=== PATIENT | female | born 1960 | race Caucasian/White ===

== ENCOUNTER 2024-02-24 14:05 | Outpatient (CLI) | payer OTHER, SELFPAY | END 2024-02-24 14:06 | disposition home or self-care (01) | PROVIDERS: PCP Nurse Practitioner Family; Visit Provider Nurse Practitioner Family | DX: I10 Essential (primary) hypertension (principal); E78.5 Hyperlipidemia, unspecified; I48.91 Unspecified atrial fibrillation | CPT/HCPCS: 80053; 84484 ==

== ENCOUNTER 2024-03-03 09:28 | Outpatient (CLI) | payer OTHER, SELFPAY | END 2024-03-03 09:29 | disposition home or self-care (01) | LOC: KYNREF 09:30 | PROVIDERS: PCP Nurse Practitioner Family; Visit Provider Nurse Practitioner Family | DX: E78.5 Hyperlipidemia, unspecified (principal); R60.0 Localized edema | CPT/HCPCS: 80061; 83880 ==

== ENCOUNTER 2024-03-13 09:16 | Outpatient (CLI) | payer OTHER, SELFPAY | END 2024-03-13 09:17 | disposition home or self-care (01) | LOC: RAD 09:17 | PROVIDERS: PCP Nurse Practitioner Family; Visit Provider Nurse Practitioner Family | DX: I48.91 Unspecified atrial fibrillation (principal); I51.7 Cardiomegaly | CPT/HCPCS: 93306 ==

== ENCOUNTER 2024-03-20 10:59 | Outpatient (CLI) | payer OTHER, SELFPAY | END 2024-03-20 11:00 | disposition home or self-care (01) | LOC: KYNREF 10:59 | PROVIDERS: PCP Nurse Practitioner Family; Visit Provider Nurse Practitioner Family | DX: I10 Essential (primary) hypertension (principal); E78.5 Hyperlipidemia, unspecified; I48.91 Unspecified atrial fibrillation; Z79.899 Other long term (current) drug therapy | CPT/HCPCS: 80048 ==

== ENCOUNTER 2024-04-20 14:37 | Outpatient (CLI) | payer OTHER, SELFPAY ==
--- OUTSIDE RECORDS SUMMARY | 2024-04-20 14:51 | XMS_ITS | Clinical Summary ---
Author Organization [employer] [facility] Address [place], [place] [address] Care Team Providers Care Counter Tacker Name Role Phone Roshan Higginbotham NP Primary Care Provider [phone] Allergies Active Allergy Reactions Criticality Noted Date Comments Pollen Extracts Runny Nose 02/22/2024 Medications Medication Sig Dispensed Refills Start Date End Date Status clonazePAM (KLONOPIN WAFER) 0.25 mg disintegrating tablet Take 0.25 mg by mouth once daily. In am Active clonazePAM (KLONOPIN) 0.5 mg tablet Take 0.5 mg by mouth two times daily. Active FLUoxetine (PROZAC) 10 mg capsule Take 10 mg by mouth once daily. Active FLUoxetine (PROZAC) 20 mg capsule Take 20 mg by mouth once daily. Active gabapentin (NEURONTIN) 100 mg capsule Take 100 mg by mouth three times daily. 07/15/2023 Active gabapentin (NEURONTIN) 600 mg tablet Take 600 mg by mouth three times daily. Active losartan (COZAAR) 100 mg tablet Take 100 mg by mouth once daily. Active QUEtiapine (SEROQUEL) 25 mg tablet Take 25 mg by mouth two times daily. 09/24/2023 Active QUEtiapine (SEROQUEL) 300 mg tablet Take 300 mg by mouth at bedtime. Active SUMAtriptan (IMITREX) 100 mg tablet Take 100 mg by mouth one time if needed for Migraine. May repeat dose once in 2 hours if migraine is unresolved. Do not exceed 200 mg in 24 hours. 11/12/2022 Active ondansetron (ZOFRAN ODT) 4 mg disintegrating tabletIndications:Na usea, vomiting and diarrhea Place 1 Tablet (4 mg) on the tongue every 8 hours if needed for Nausea/Vomitin g. 20 Tablet 02/22/2024 Active metoprolol succinate (Toprol XL) 100 mg Sustained-Release tabletIndications:Pe rsistent atrial fibrillation (HC) Take 1 Tablet (100 mg) by mouth once daily. 30 Tablet 11 03/26/2024 Active dilTIAZem CD (CARDIZEM CD) 120 mg extended release 24 hr capsuleIndications:A trial fibrillation with rapid ventricular response (HC) Take 1 Capsule (120 mg) by mouth once daily before a meal. 30 Capsule 03/26/2024 Active digoxin (LANOXIN) 250 mcg (0.25 mg) tabletIndications:Pe rsistent atrial fibrillation (HC) Take 1 Tablet (250 mcg) by mouth once daily. 03/26/2024 Active apixaban (Eliquis) 5 mg tabletIndications:Pe rsistent atrial fibrillation (HC) Take 1 Tablet (5 mg) by mouth two times daily. 60 Tablet 3 03/26/2024 Active amLODIPine (NORVASC) 5 mg tablet Take 5 mg by mouth once daily. 11/06/2023 4 Discontinue d(*Medicati on adjustment) propranolol ER (INDERAL LA) 80 mg Cs24 Sustained-Release capsule Take 80 mg by mouth once daily. 01/31/2024 4 Discontinue d(*Medicati on adjustment) dilTIAZem CD (CARDIZEM CD) 120 mg extended release 24 hr capsuleIndications:A trial fibrillation with rapid ventricular response (HC) Take 1 Capsule (120 mg) by mouth once daily before a meal. 30 Capsule 02/22/2024 4 Discontinue d(Reorder (E-cancel not sent)) Encounters Date Type Department Care Team Description 04/20/2024 Telephone [facility] [address] [place] [address] Aydin Washington MD Medication Management 04/16/2024 Telephone [facility] [address] [place] [phone] Aydin Washington MD Questions 03/26/2024 10:30 AM CDT Office Visit [facility] & [address] [address] Aydin Washington MD 03/13/2024 9:00 AM CDT Ancillary Procedure [facility] & [facility] [address] [place] [address] 03/13/2024 Orders Only [facility] [address] [place] [address] McknightCatrachitaie 1 scan: (1-Ord) Final 03/04/2024 Telephone [facility] [address] [place] [phone] Nic Romero MD Atrial Fibrillation 02/27/2024 Travel 02/22/2024 11:10 AM CDT - 02/22/2024 2:49 PM CDT Emergency [facility] [address] [place] [address] Irving Meehan MD Atrial fibrillation with rapid ventricular response (HC) (Primary Dx); Nausea, vomiting and diarrhea Discharge Disposition: Home Self Care 02/22/2024 Travel from Last 3 Months Social History Tobacco Use Types Packs/Day Years Used Date Smoking Tobacco: Never Assessed Social Connections Answer Date Recorded Frequency of Communication with Friends and Fami ly Not on file 03/26/2024 Sex and Gender Information Value Date Recorded Sex Assigned at Not on file Gender Identity Not on file Sexual Orientation Not on file Last Filed Vital Signs Vital Sign Reading Time Taken Comments Blood Pressure 123/90 02/22/2024 2:04 PM CDT Pulse 128 02/22/2024 2:04 PM CDT Temperature 36.6 ??C (97.8 ??F) 02/22/2024 1 1:21 AM CDT Respiratory Rate 18 02/22/2024 11:2 1 AM CDT Oxygen Saturation 93% 02/22/2024 2:04 PM CDT Inhaled Oxygen Concentration - - Weight 81.1 kg (178 lb 12.8 oz) 024 11:21 AM CDT Height 165.1 cm (5' 5) 02/22/2024 11:2 1 AM CDT Body Mass Index 29.75 02/22/2024 11:21 AM CDT Plan of Treatment Health Maintenance Due Date Last Done Comments Tdap 1971 Depression screening for age 12+ 1972 HIV for age 15-65 1975 BMI (ht and wt on same day) for age 18+ 1978 Hepatitis C screening for ag e 18-79 1978 Tetanus booster 1980 Pap test for age 21-65 1981 Colonoscopy through age 75 2005 Lipids for age 45-75 2005 Mammogram for age 45-75 2005 Zoster (shingles) series for age 50+ (1 of 2) 2010 COVID-19 vaccine series (3 - 2022- season) 2023 01/13/2021, 12/20/2020 Influenza for age 50-64 06/07/2024 Pneumococcal series for age 6-64 Aged Out No longer eligible b ased on patient's age to complete this topic Procedures Procedure Name Priority Date/Time Associated Diagnosis Comments EXTENDED HOLTER Routine 03/16/2024 Unspecified atrial fibrillation (HC) ECHO TTE COMPLETE WO CONTRAST Routine 03/13/2024 9:57 AM CDT Unspecified atrial fibrillation (HC) TROPONIN T (HS) ONE TIME Timed 02/22/2024 1:27 PM CDT PROTIME-INR JABIER 02/22/2024 11:26 AM CDT RED CELL MORPHOLOGY JABIER 02/22/2024 1 1:25 AM CDT PLATELET ESTIMATE JABIER 02/22/2024 11: 25 AM CDT MANUAL DIFFERENTIAL JABIER 02/22/2024 1 1:25 AM CDT MAGNESIUM JABIER 02/22/2024 11:25 AM CDT TROPONIN T (HS) ACUTE W/2HR REFLEX STAT 02/22/2024 11:25 AM CDT TSH JABIER 02/22/2024 11:25 AM CDT CBC WITH AUTO DIFFERENTIAL JABIER 02/22/2024 11:25 AM CDT LIPASE JABIER 02/22/2024 11:25 AM CDT COMP METABOLIC PANEL JABIER 02/22/2024 11:25 AM CDT CBC WITH AUTO DIFFERENTIAL JABIER 02/22/2024 11:25 AM CDT EKG 12 LEAD STAT 02/22/2024 11:11 AM CDT CRITICAL CARE PROVIDED Routine 02/22/2024 11:07 AM CDT from Last 3 Months Results * EXTENDED HOLTER (03/16/2024) Roshan Higginbotham NP CARDIAC SERVICES O RD * ECHO TTE COMPLETE WO CONTRAST (03/13/2024 9:57 AM CDT) AORTIC VALVE MEAN PG 6 mmHg PEAK TR VELOCITY 2.2 m/s LVEDD 5.2 cm EJECTION FRACTION 35 - 40% Anatomical Region Laterality Modality Ultrasound 03/13/2024 9:26 AM CDT Narrative 03/13/2024 10:26 AM CDT ECHOCARDIOGRAM AIRAM LOPEZAnmol ? Accession#: ?? [id number] : ?1960 63 years Study Date: ?? 03/13/2024 9:26:06 AM Gender: F ?BP: ? 128/75 mmHg Height: 165.00 cm ?BSA: ?1.88 m? ? ? Weight: 81.00 kg ? Tech: ? MBF ? Referring MD: ROSHAN HIGGINBOTHAM Site: ? [facility] Reading Location: Mobile OP Patient Location: Outpatient. Procedure: 2D, Color Doppler and Spectral Doppler. Indication for study: Afib Cardiac Rhythm: Atrial fibrillation.Study quality: Fair. Final Impressions: 1. Normal LV size, normal wall thickness, moderately reduced global systolic function with an estimated EF of 35 - 40%. 2. There's global hypokinesis but worse involving the apical segments. 3. Right ventricular cavity size is mildly enlarged, global systolic RV function is borderline reduced. 4. Severely enlarged left atrium. Chamber Sizes and Function Normal left ventricular size, normal wall thickness, moderately reduced global systolic function with an estimated EF of 35 - 40%. Left atrial size is severely enlarged. Right ventricular cavity size is mildly enlarged, global systolic RV function is borderline reduced. The right atrium is mildly enlarged. Right atrial volume index is 32 ml/m? ? ?. Right atrial area is 18 cm? ? ?. The pulmonary artery is of normal size and origin. The sinus of Valsalva is normal sized. The ascending aorta is normal sized. Valves, RV Pressures and Diastolic Function The aortic valve is trileaflet, no stenosis and no regurgitation. The mitral valve is normal in structure, trace mitral regurgitation. Indeterminate pattern of LV diastolic filling. The tricuspid valve is normal in structure. Tricuspid regurgitation is trace regurgitation. The tricuspid regurgitant velocity is 2.2 m/s, the estimated right ventricular systolic pressure is 19 mmHg plus right atrial pressure. The pulmonic valve is normal. Trace pulmonary regurgitation. Masses, Effusion, Shunts There is no pericardial effusion. The inferior vena cava is normal sized, respiratory size variation greater than 50%. No left to right shunting was detected by limited color flow Doppler interrogation of the interatrial septum. MEASUREMENTS AND CALCULATIONS 2-D Measurements and LV Function: LVID (d) 5.2 cm LV FS% (2D) ?? 17 % LVID (s) 4.4 cm LVOT diameter 2.1 cm IVS (d) ??1.2 cm HR ?85 bpm LVPW (d) 1.2 cm LA Vol index ??49 ml/m2 Ao Sinus 3.1 cm RA Vol index ??32 ml/m2 Asc Ao ?? 3.5 cm RA area ? 18 cm?RV Max 4C (d) 4.2 cm Aortic Valve: Vmax ? 1.5 m/s ??ESTEFANIA (V) ?? 2.72 cm? ? ? VTI ?0.30 m ?? ESTEFANIA (I) ?? 2.48 cm? ? ? LVOT V max 1.2 m/s ??Max PG ?9 mmHg LVOT VTI ?? 0.20 m ?? Mean PG ?? 6 mmHg SV ? 73 ml ?Dim Index 0.69 SV index ?? 39 ml/m? ? ? CO ?6.2 l/min ?CI ?3.3 l/min/m? ? ? Tricuspid Valve and estimated PA pressures: TR Vmax 2.2 m/s TAPSE 1.8 cm TR maxG 19 mmHg . This study was interpreted by an [facility] accredited facility. CC: [facility] ([facility]) [facility]. ??Final ?? Procedure Note Jose Antonio Noriega MD - 03/13/2024 ECHOCARDIOGRAM AIRAM YOUNG : 1960 63 years Study Date: 03/13/2024 9:26:06 AM Gender: F BP: 128/75 mmHg Height: 165.00 cm BSA: 1.88 m? ? ? Weight: 81.00 kg Tech: PRISCILLA Referring MD: ROSHAN HIGGINBOTHAM Site: [facility] Reading Location: Mobile OP Patient Location: Outpatient. Procedure: 2D, Color Doppler and Spectral Doppler. Indication for study: Afib Cardiac Rhythm: Atrial fibrillation.Study quality: Fair. Final Impressions: 1. Normal LV size, normal wall thickness, moderately reduced globalsystolic function with an estimated EF of 35 - 40%. 2. There's global hypokinesis but worse involving the apical segments. 3. Right ventricular cavity size is mildly enlarged, global systolic RVfunction is borderline reduced. 4. Severely enlarged left atrium. Chamber Sizes and Function Normal left ventricular size, normal wall thickness, moderately reducedglobal systolic function with an estimated EF of 35 - 40%. Left atrialsize is severely enlarged. Right ventricular cavity size is mildlyenlarged, global systolic RV function is borderline reduced. The rightatrium is mildly enlarged. Right atrial volume index is 32 ml/m? ? ?. Rightatrial area is 18 cm? ? ?. The pulmonary artery is of normal size and origin.The sinus of Valsalva is normal sized. The ascending aorta is normalsized. Valves, RV Pressures and Diastolic Function The aortic valve is trileaflet, no stenosis and no regurgitation. Themitral valve is normal in structure, trace mitral regurgitation.Indeterminate pattern of LV diastolic filling. The tricuspid valve isnormal in structure. Tricuspid regurgitation is trace regurgitation. Thetricuspid regurgitant velocity is 2.2 m/s, the estimated right ventricularsystolic pressure is 19 mmHg plus right atrial pressure. The pulmonicvalve is normal. Trace pulmonary regurgitation. Masses, Effusion, Shunts There is no pericardial effusion. The inferior vena cava is normal sized,respiratory size variation greater than 50%. No left to right shunting wasdetected by limited color flow Doppler interrogation of the interatrialseptum. MEASUREMENTS AND CALCULATIONS 2-D Measurements and LV Function: LVID (d) 5.2 cm LV FS% (2D) 17 % LVID (s) 4.4 cm LVOT diameter 2.1 cm IVS (d) 1.2 cm HR 85 bpm LVPW (d) 1.2 cm LA Vol index 49 ml/m2 Ao Sinus 3.1 cm RA Vol index 32 ml/m2 Asc Ao 3.5 cm RA area 18 cm? ? ? RV Max 4C (d) 4.2 cm Aortic Valve: Vmax 1.5 m/s ESTEFANIA (V) 2.72 cm? ? ? VTI 0.30 m ESTEFANIA (I) 2.48 cm? ? ? LVOT V max 1.2 m/s Max PG 9 mmHg LVOT VTI 0.20 m Mean PG 6 mmHg SV 73 ml Dim Index 0.69 SV index 39 ml/m? ? ? CO 6.2 l/min CI 3.3 l/min/m? ? ? Tricuspid Valve and estimated PA pressures: TR Vmax 2.2 m/s TAPSE 1.8 cm TR maxG 19 mmHg . This study was interpreted by an [facility] accredited facility. CC: [facility] ([facility]) [facility]. Final Roshan Higginbotham SYSTEM ARCHITECT ECHO ORD * (ABNORMAL) TROPONIN T (HS) ONE TIME (02/22/2024 1:27 PM CDT) TROPONIN T HS 13(H) 6-10 ng/L ng/L 02/22/2024 1:52 PM CDT [facility] Blood BLOOD SPECIMEN / Unknown Venipuncture / Unknown 02/22/2024 1:27 PM CDT 02/22/2024 1:28 PM CDT Irving Meehan MD CHEMISTRY [facility] [address] [address] * (ABNORMAL) PROTIME-INR (02/22/2024 11:26 AM CDT) INR 1.7(H) <1.3 02/22/2024 11:38 AM CDT [facility] PROTIME 19.1(H) 10.3 - 12.3 sec 02/22/2024 11:38 AM T [facility] Blood BLOOD SPECIMEN / Unknown Venipuncture / Unknown 02/22/2024 11:26 AM CDT 02/22/2024 11:29 AM CDT Narrative [facility] - 02/22/2024 11:38 AM CDT ?Therapeutic Range 2.0-3.0 for most anticoagulated patients 2.5-3.5 or 4.0 for high risk patients The INR is only used for patients on stable oral anticoagulant therapy. It makes no significant contribution to the diagnosis or treatment of patients whose Protime is prolonged for other reasons. INR results are increased when heparin levels exceed 1.0 U/mL, which corresponds to an aPTT >125 seconds if the patient is on UFH. Irving Meehan MD HEMATOLOGY [facility] [address] [phone] * (ABNORMAL) TROPONIN T (HS) ACUTE W/2HR REFLEX (02/22/2024 11:25 AM CDT) [facility] TROPONIN T HS 14(H) 6-10 ng/L ng/L 02/22/2024 12:16 PM T [facility] Blood BLOOD SPECIMEN / Unknown Venipuncture / Unknown 02/22/2024 11:25 AM CDT 02/22/2024 11:29 AM CDT [facility] 02/22/2024 12:16 PM CDT hs-cTnT (Elecsys Troponin T Gen 5) concentration (s) above the sex-specific 99th percentile (16 ng/L or greater for males or 11 ng/L or greater for females) are indicative of myocardial injury. If initial hs-cTnT <=100 ng/L at presentation, a 0h/2h ABSOLUTE (ng/L) delta change (rising or falling) of >=10 ng/L suggests a significant change, whereas a 0h/2h delta change <=3 ng/L suggests no significant change. If initial hs-cTnT >100 ng/L at presentation, a 0h/2h/ RELATIVE (percent, %) delta change of 20% is suggested to distinguish patients with acute vs. chronic myocardial injury. There are multiple etiologies that can cause hs-cTnT increases above the 99th percentile (myocardial injury) other than acute myocardial infarction. Clinical context and careful clinical evaluation are critical for diagnosis and risk-stratification. The diagnosis of acute myocardial infarction requires a rising and/or falling pattern in hs-cTnT concentrations with at least one value above the sex-specific 99th percentile PLUS at least one of the following clinical criteria: ischemic symptoms, new or presumed new significant ST-T wave changes or new LBBB, development of pathological Q waves, imaging evidence of new loss of viable myocardium or new regional wall motion abnormality, or identification of intracoronary atherothrombosis or an acute angiographic culprit on coronary angiography. In appropriate low-risk patients with a non-ischemic electrocardiogram without active chest pain with a symptom onset >3-hours without recurrence, a single initial hs-cTnT<6 ng/L identifies patient with a very low risk in emergency department patient population. Irving Meehan MD CHEMISTRY [facility] [address] [address] * (ABNORMAL) CBC WITH AUTO DIFFERENTIAL (02/22/2024 11:25 AM T) WHITE BLOOD COUNT 7.0 4.5 - 11.0 thou/cu mm 02/22/2024 11:57 AM [facility] RED BLOOD COUNT 4.01 4.00 - 5.20 mil/cu mm 02/22/2024 11:57 AM [facility] HEMOGLOBIN 14.1 12.0 - 16.0 g/dL 02/22/2024 11:57 AM [facility] HEMATOCRIT 42.3 33.0 - 51.0 % 02/22/2024 11:57 AM [facility] MCV 106(H) 80 - 100 fL 02/22/2024 11:57 AM [facility] MCH 35.2(H) 26.0 - 34.0 pg 02/22/2024 11:57 AM [facility] MCHC 33.3 32.0 - 36.0 g/dL 02/22/2024 11:57 AM [facility] RDW 14.3 11.5 - 15.5 % 02/22/2024 11:57 AM [facility] PLATELET COUNT 198 140 - 440 thou/cu mm 02/22/2024 11:57 AM [facility] MPV 10.7 6.5 - 11.0 fL 02/22/2024 11:57 AM [facility] Blood BLOOD SPECIMEN / Unknown Venipuncture / Unknown 02/22/2024 11:25 AM CDT 02/22/2024 11:29 AM CDT Irving Meehan MD HEMATOLOGY Performing Organization Address [facility] de Phone Number [facility] [address] [phone] * (ABNORMAL) RED CELL MORPHOLOGY (02/22/2024 11:25 AM CDT) POLYCHROMASIA Slight 02/22/2024 11:57 AM CDT [facility] RBC COMMENT Present(A) RBC morphology appears normal, RBC morphology within normal limits for newborns. 02/22/2024 11:57 AM CDT [facility] Blood BLOOD SPECIMEN / Unknown Venipuncture / Unknown 02/22/2024 11:25 AM CDT 02/22/2024 11:29 AM CDT Irving Meehan MD HEMATOLOGY Performing Organization Address [facility] de Phone Number [facility] [address] [phone] * PLATELET ESTIMATE (02/22/2024 11:25 AM CDT) PLATELET ESTIMATE Adequate Adequate, No estimate 02/22/2024 11:57 AM T [facility] Blood BLOOD SPECIMEN / Unknown Venipuncture / Unknown 02/22/2024 11:25 AM CDT 02/22/2024 11:29 AM CDT Irving Meehan MD HEMATOLOGY Performing Organization Address [facility] de Phone Number [facility] [address] [phone] * MANUAL DIFFERENTIAL (02/22/2024 11:25 AM CDT) % NEUTROPHILS 75.0 % 02/22/2024 11:57 AM CDT [facility] % LYMPHOCYTES 18.0 % 02/22/2024 11:57 AM CDT [facility] % MONOCYTES 7.0 % 02/22/2024 11:57 AM CDT [facility] % EOSINOPHILS 0.0 % 02/22/2024 11:57 AM T [facility] % BASOPHILS 0.0 % 02/22/2024 11:57 AM T [facility] NEUTROPHILS ABSOLUTE 5.3 1.7 - 7.0 thou/cu mm 02/22/2024 11:57 AM T [facility] LYMPHOCYTES ABSOLUTE 1.3 0.9 - 2.9 thou/cu mm 02/22/2024 11:57 AM T [facility] MONOCYTES ABSOLUTE 0.5 <0.9 thou/cu mm 02/22/2024 11:57 AM [facility] EOSINOPHILS ABSOLUTE 0.0 <0.5 thou/cu mm 02/22/2024 11:57 AM [facility] BASOPHILS ABSOLUTE 0.0 <0.3 thou/cu mm 02/22/2024 11:57 AM [facility] Blood BLOOD SPECIMEN / Unknown Venipuncture / Unknown 02/22/2024 11:25 AM CDT 02/22/2024 11:29 AM CDT Irving Meehan MD HEMATOLOGY [facility] [address] [address] * TSH (02/22/2024 11:25 AM CDT) TSH 1.14 0.27 - 4.20 uIU/mL 02/22/2024 12:16 PM CDT [facility] Blood BLOOD SPECIMEN / Unknown Venipuncture / Unknown 02/22/2024 11:25 AM CDT 02/22/2024 11:29 AM CDT [facility] - 02/22/2024 12:16 PM CDT In Adults, TSH values between 5.00 and 10.00 uIU/ml do not necessarily indicate the presence of Hypothyroidism. Correlation with clinical findings such as presence of goiter and/or Thyroperoxidase (TPO) Antibody may be helpful. For more information please refer to ROSY 2004; 291: 228-238. Irving Meehan MD CHEMISTRY Performing Organization Address [facility] Phone Number [address] [phone] * MAGNESIUM (02/22/2024 11:25 AM CDT) MAGNESIUM 1.7 1.6 - 2.4 mg/dL 02/22/2024 12:16 PM CDT [facility] Blood BLOOD SPECIMEN / Unknown Venipuncture / Unknown 02/22/2024 11:25 AM CDT 02/22/2024 11:29 AM CDT Irving Meehan MD CHEMISTRY Performing Organization Address [facility] de Phone Number [address] [phone] * LIPASE (02/22/2024 11:25 AM CDT) LIPASE 13.1 13.0 - 60.0 IU/L 02/22/2024 12:16 PM CDT [facility] Blood BLOOD SPECIMEN / Unknown Venipuncture / Unknown 02/22/2024 11:25 AM CDT 02/22/2024 11:29 AM CDT Irving Meehan MD CHEMISTRY Performing Organization Address [facility] de Phone Number [address] [phone] * (ABNORMAL) COMP METABOLIC PANEL (02/22/2024 11:25 AM CDT) SODIUM 139 136 - 145 mmol/L 02/22/2024 12:16 PM CDT [facility] POTASSIUM 4.4 3.5 - 5.1 mmol/L 02/22/2024 12:16 PM CDT [facility] CHLORIDE 102 98 - 107 mmol/L 02/22/2024 12:16 PM CDT [facility] CO2,TOTAL 21(L) 22 - 29 mmol/L 02/22/2024 12:16 PM [facility] ANION GAP 16 5 - 18 02/22/2024 12:16 PM [facility] GLUCOSE 131(H) 70 - 99 mg/dL 02/22/2024 12:16 PM [facility] CALCIUM 9.4 8.8 - 10.2 mg/dL 02/22/2024 12:16 PM [facility] BUN 18 8 - 23 mg/dL 02/22/2024 12:16 PM [facility] CREATININE 1.17(H) 0.50 - 0.90 mg/dL 02/22/2024 12:16 [facility] BUN/CREAT RATIO 15 10 - 20 12:16 PM [facility] eGFR 53(L) >90 mL/min/1.7 3m2 02/22/2024 12:16 [facility] Comment:As of 2021, eG FR is calculated by the CKD-EPI creatinine equation without race adjustment. ??eGFR can be influenced by muscle mass, exercise, and diet. ??The reported eGFR is an estimation only and is only applicable if the renal function is stable. ALBUMIN 4.3 4.0 - 4.9 g/dL 02/22/2024 12:16 PM [facility] PROTEIN,TOTAL 7.3 6.0 - 8.0 g/dL 02/22/2024 12:16 [facility] BILIRUBIN,TOTAL 1.5(H) 0.0 - 1.2 mg/dL 02/22/2024 12:16 PM [facility] ALK PHOSPHATASE 234(H) 35 - 104 IU/L 02/22/2024 12:16 PM [facility] ALT (SGPT) 20 10 - 35 IU/L 02/22/2024 12:16 PM [facility] AST (SGOT) 41(H) 10 - 35 IU/L 02/22/2024 12:16 PM [facility] Blood BLOOD SPECIMEN / Unknown Venipuncture / Unknown 02/22/2024 11:25 AM CDT 02/22/2024 11:29 AM CDT Irving Meehan MD CHEMISTRY Performing Organization Address [facility] de Phone Number [facility] [address] [address] * EKG 12 LEAD (02/22/2024 11:11 AM CDT) Interpretation Atrial fibrillation with rapid ventricular response Right axis deviation Nonspecific ST and T wave abnormality Abnormal ECG No previous ECGs available BEYOND NOW Ventricular Rate 169 BPM BEYOND NOW Atrial Rate BPM BEYOND NOW P-R Interval ms BEYOND NOW QRS Duration 84 ms BEYOND NOW QT 246 ms BEYOND NOW QTc 412 ms BEYOND NOW P Beaver degrees BEYOND NOW R Beaver 115 degrees BEYOND NOW T Beaver -133 degrees BEYOND NOW 02/22/2024 11:1 1 AM CDT 02/23/2024 1:39 PM CDT Irving Meehan MD EKG ORD Performing Organization Address [facility] [facility] de Phone Number [facility] NOW [place], [place] * CRITICAL CARE PROVIDED (02/22/2024 11:07 AM CDT) Narrative Irving Meehan MD - 02/22/2024 11:07 AM CDT Irving Meehan MD ? 02/22/2024 ??2:09 PM CRITICAL CARE PROVIDED Performed by: Irving Meehan MD Authorized by: Irving Meehan MD ?? Critical care provider statement: ??Critical care time (minutes): ??30 ??Critical care time was exclusive of: ??Separately billable procedures and treating other patients and teaching time ??Critical care was necessary to treat or prevent imminent or life-threatening deterioration of the following conditions: ??Circulatory failure ??Critical care was time spent personally by me on the following activities: ??Development of treatment plan with patient or surrogate, examination of patient, evaluation of patient's response to treatment, obtaining history from patient or surrogate, ordering and review of laboratory studies, ordering and performing treatments and interventions and re-evaluation of patient's condition ??I assumed direction of critical care for this patient from another provider in my specialty: no ?? Irving Meehan MD PROCEDURE ORD from Last 3 Months Care Teams Counter Tacker Relationship Specialty Start Date End Date Roshan Higginbotham, SYSTEM ARCHITECT [address] [place] [id number] PCP - General 04/17/24
--- OUTSIDE RECORDS SUMMARY | 2024-04-20 14:51 | XMS_ITS | Encounter Summary ---
Author Organization [facility] Address [address] [place] [address] Care Team Providers Care Composite Engineer Name Role Phone Branden Back, B.Lore., B.A.O. Primary Care Provider Unavailable Reason for Visit * Reason Comments Vomiting Encounter Details Date Type Department Care Team (Late st Contact Info) Description 02/22/2024 11:05 AM CDT - 02/22/2024 2:49 PM CDT Emergency [facility] [address] [place] [address] Atrial Fibrillation Unspecified (HCC) (Primary Dx) Discharge Disposition: Home or Self Care Social History Tobacco Use Types Packs/Day Years Used Date Smoking Tobacco: Every Day Cigarettes 1 48.7 Started: 08/08/1975 Passive Smoke Exposure: Current Smokeless Tobacco: Never Alcohol Use Standard Drinks/Week Comments Never 0 (1 standard drink = 0.6 oz pur e alcohol) [facility] Utilities Answer Date Recorded In the past 12 months has e [employer], gas, oil, or water [employer] threatened to shut off services in your home? No 12/20/2023 Humiliation, Afraid, Rape, and Kick questionnair e Answer Date Recorded Within the last year, have y ou been afraid of your partner or ex-partner? No 02/15/2022 Within the last year, have y ou been humiliated or emotionally abused in other ways by your partner or ex-partner? No Within the last year, have y ou been kicked, hit, slapped, or otherwise physically hurt by your partner or ex-partner? No 02/15/2022 Within the last year, have y ou been raped or forced to have any kind of sexual activity by your partner or ex-partner? No 02/15/2022 Social Connection and Isolat ion Panel [NHANES] Answer Date Recorded In a typical week, how many times do you talk on the phone with family, friends, or neighbors? More than three times a week 02/15/2022 How often do you get togethe r with friends or relatives? Three times a week 02/15/2022 How often do you attend [facility] or synagogue services? 1 to 4 times per year 02/15/2022 Do you belong to any clubs o r organizations such as yazidi groups, unions, fraternal or athletic groups, or school groups? No 02/15/2022 How often do you attend meet ings of the clubs or organizations you belong to? Never 02/15/2022 Are you , , di vorced, , never , or living with a partner? 02/15/2022 AUDIT-C Answer Date Recorded Q1: How often do you have a drink containing alc ohol? Never 02/15/2022 Average Number of Drinks Not on file 022 Frequency of Binge Drinking Not on file 02/04 Overall Financial Resource Strain (CARDIA) Answe r Date Recorded How hard is it for you to pa y for the very basics like food, housing, medical care, and heating? Not hard at all 02/15/2022 PHQ-2 Answer Date Recorded PHQ-2 Score 0 12/20/2023 [facility] of Occupat ional Health - Occupational Stress Questionnaire Answer Date Recorded Do you feel stress - tense, restless, nervous, or anxious, or unable to sleep at night because your mind is troubled all the time - these days? Not at all 02/15/2022 Exercise Vital Sign Answer Date Recorde d On average, how many days pe r week do you engage in moderate to strenuous exercise (like a brisk walk)? 5 days 12/20/2023 On average, how many minutes do you engage in exercise at this level? 40 min 12/20/2023 Hunger Vital Sign Answer Date Recorded Within the past 12 months, y ou worried that your food would run out before you got the money to buy more. Never true 12/20/19 24 Within the past 12 months, t he food you bought just didn't last and you didn't have money to get more. Never true 12/20/2023 PRAPARE - Transportation Answer Date Re corded In the past 12 months, has l ack of transportation kept you from medical appointments or from getting medications? No 12/05 In the past 12 months, has l ack of transportation kept you from meetings, work, or from getting things needed for daily living? No 12/20/2023 Depression Answer Date Recor ded PHQ-9 Total Score (max 27) 0 12/19 Nutrition Answer Date Recorded Nutrition: EVOO Fat Source Yes 12/19 On average, how many serving s of fruits and vegetables do you eat per day (serving size is equal to 1 cup or approximately the size of a tennis ball)? 3-5 12/20/2023 Dental Answer Date Recorded Dental: Regular Dentist Yes 12/20/19 Employment Answer Date Recorded Employment status Retired 12/20/2023 Housing Stability Answer Date Recorded What is your living situation today? I have a [facility] place to live 12/20/2023 Education Answer Date Recorded What is the highest level of school you have completed or the highest degree you have received? 12th grade 08/12/2019 Sex and Gender Information Value Date Recorded Sex Assigned at Female 12/20/2023 8:28 AM CDT Gender Identity Female 12/20/2023 8:28 AM CDT Sexual Orientation Straight 12/20/2023 8: 28 AM CDT documented as of this encounter Medications at Time of Discharge Medication Sig Dispensed Refills Start Date End Date amLODIPine (NORVASC) 5 mg tablet take one tablet by mouth every day 90 tablet 3 11/06/[address] tablet Take 1 tablet by mouth daily. 06/22/2016 atorvastatin (LIPITOR) 40 mg tabletIndications:Hyperl ipidemia Take 1 tablet (40 mg total) by mouth daily. 90 tablet 3 03/23/2021 cholecalciferol (VITAMIN D3) 50 mcg (2,000 Unit) capsule Take 1 capsule by mouth daily. 06/22/2016 clonazePAM (KlonoPIN) 0.25 mg disintegrating tablet Please take 1 tablet of 0.25 mg of clonazepam every morning. You also have 0.25 mg of clonazepam to be taken as needed, 2-3 times per week. Do not take more than this. 42 tablet 3 12/30/2023 FLUoxetine (PROzac) 10 mg capsuleIndications:Bipol ar Disorder (HCC) take one capsule by mouth every day 90 capsule 3 08/16/2023 FLUoxetine (PROzac) 20 mg capsuleIndications:Bipol ar Disorder (HCC) take one capsule by mouth every day 90 capsule 3 08/16/2023 gabapentin (NEURONTIN) 100 mg capsule TAKE ONE CAPSULE BY MOUTH THREE TIMES A DAY WITH A 600MG CAPSULE FOR A TOTAL DOSE OF 700MG 270 capsule 3 07/15/2023 gabapentin (NEURONTIN) 600 mg tablet TAKE ONE TABLET BY MOUTH THREE TIMES A DAY 270 tablet 3 07/15/2023 losartan (COZAAR) 100 mg tablet take one tablet by mouth every day 90 tablet 3 08/16/2023 magnesium citrate 100 mg tablet Take 1 tablet by mouth daily. 06/22/2016 propranoloL (INDERAL LA) 80 mg 24 hr capsule Take 1 capsule (80 mg total) by mouth daily. 90 capsule 3 03/23/2021 QUEtiapine (SEROquel) 25 mg tablet TAKE ONE TABLET BY MOUTH TWICE A DAY IN ADDITION TO 300 MG AT BEDTIME 180 tablet 3 09/24/2023 QUEtiapine (SEROquel) 300 mg tabletIndications:Bipola r Disorder (HCC) take one tablet by mouth at bedtime 90 tablet 3 09/16/2023 SUMAtriptan (IMITREX) 100 mg tablet Take 1 tablet (100 mg total) by mouth as needed for migraine. May repeat dose once in 2 hours if migraine is unresolved. Do not exceed 200 mg in 24 hours. 18 tablet 3 11/12/2022 documented as of this encounter Plan of Treatment Not on file documented as of this encounter Visit Diagnoses Diagnosis Atrial Fibrillation Unspecified (HCC)- Primary documented in this encounter Additional Health Concerns Assessment Noted Time PHQ-9 Depression Total Score: 0 12/20/19 24 8:24 AM CDT documented as of this encounter Care Teams Composite Engineer Relationship Specialty Start Date End Date Branden Bcak M.B., B.Ch., B.A.O. PCP - General 04/06/21 04/05/24 documented as of this encounter
--- OUTSIDE RECORDS SUMMARY | 2024-04-20 14:51 | XMS_ITS | Referral Summary ---
Author Organization [facility] Address [address] [place] [address] Care Team Providers Care Manager House Name Role Phone Asael Smith M.D. Primary Care Provider Source Comments Patient records contain information from all sites at [facility]. For routine questions regarding patient records, call [phone] during business hours, M-F 8:00 AM - 5:00 PM Central Time. Record requests for emergency care only can be directed to [phone] at any time.[facility] Encounters Date Type Department Care Team Description 02/22/2024 11:05 AM CDT - 02/22/2024 2:49 PM CDT Emergency [facility] [address] [place] [address] Atrial Fibrillation Unspecified (HCC) (Primary Dx) Discharge Disposition: Home or Self Care from Last 3 Months Allergies Active Allergy Reactions Criticality Noted Date Comments Pollen Extracts Other (see comments) 02/26/2022 Sneezing, runny eyes Medications Medication Sig Dispensed Refills Start Date End Date Status aspirin [address] tablet Take 1 tablet by mouth daily. 06/22/2016 Active magnesium citrate 100 mg tablet Take 1 tablet by mouth daily. 06/22/2016 Active cholecalciferol (VITAMIN D3) 50 mcg (2,000 Unit) capsule Take 1 capsule by mouth daily. 06/22/2016 Active atorvastatin (LIPITOR) 40 mg tabletIndications:Hy perlipidemia Take 1 tablet (40 mg total) by mouth daily. 90 tablet 3 03/23/2021 Active propranoloL (INDERAL LA) 80 mg 24 hr capsule Take 1 capsule (80 mg total) by mouth daily. 90 capsule 3 03/23/2021 Active SUMAtriptan (IMITREX) 100 mg tablet Take 1 tablet (100 mg total) by mouth as needed for migraine. May repeat dose once in 2 hours if migraine is unresolved. Do not exceed 200 mg in 24 hours. 18 tablet 3 11/12/2022 Active gabapentin (NEURONTIN) 100 mg capsule TAKE ONE CAPSULE BY MOUTH THREE TIMES A DAY WITH A 600MG CAPSULE FOR A TOTAL DOSE OF 700MG 270 capsule 3 07/15/2023 Active gabapentin (NEURONTIN) 600 mg tablet TAKE ONE TABLET BY MOUTH THREE TIMES A DAY 270 tablet 3 07/15/2023 Active FLUoxetine (PROzac) 20 mg capsuleIndications:B ipolar Disorder (HCC) take one capsule by mouth every day 90 capsule 3 08/16/2023 Active losartan (COZAAR) 100 mg tablet take one tablet by mouth every day 90 tablet 3 08/16/2023 Active FLUoxetine (PROzac) 10 mg capsuleIndications:B ipolar Disorder (HCC) take one capsule by mouth every day 90 capsule 3 08/16/2023 Active QUEtiapine (SEROquel) 300 mg tabletIndications:Bi polar Disorder (HCC) take one tablet by mouth at bedtime 90 tablet 3 09/16/2023 Active QUEtiapine (SEROquel) 25 mg tablet TAKE ONE TABLET BY MOUTH TWICE A DAY IN ADDITION TO 300 MG AT BEDTIME 180 tablet 3 09/24/2023 Active amLODIPine (NORVASC) 5 mg tablet take one tablet by mouth every day 90 tablet 3 11/06/2023 Active clonazePAM (KlonoPIN) 0.5 mg tabletIndications:An xiety Generalized Disorder Take 1 tablet (0.5 mg total) by mouth every morning. May also take 0.5 tablets (0.25 mg total) every evening as needed for anxiety. Do all this for 10 days. The evening dose (0.5 tablets) should be used a maximum of twice per week.. 14 tablet 12/20/2023 Active clonazePAM (KlonoPIN) 0.25 mg disintegrating tablet Please take 1 tablet of 0.25 mg of clonazepam every morning. You also have 0.25 mg of clonazepam to be taken as needed, 2-3 times per week. Do not take more than this. 42 tablet 3 12/30/2023 Active Active Problems Problem Noted Date Diagnosed Date Maintenance Health Adult 02/15/2022 Overview: Health Maintenance: Colon CA: cologuard Breast CA: Mammogram ordered Cervical CA: No family history of cervical, breast or ovarian cancer. Pap Q3-5Y ages 21-65. Stop after 65 if 10 years of normal paps. Lung CA: Has not had a CT yet. Declined enrollment in 11/2022. Osteoporosis: Screening bone density measurement at age 65 years pending no early onset menopause. No family history of osteoporosis or personal history of early onset menopause, surgical menopause, chronic steroid use or immunosuppression. Tobacco: smoker. 32 PYH. Fall Risk: Begin screening after age 65. HepC: Lifetime screening not completed. HIV: Lifetime screening not yet completed. Vaccines: missing covid booster Last Assessment & Plan: Enrolled in mammogram, still needs to be enrolled in low-dose lung cancer screening. Impaired Fasting Glucose 11/18/2018 Overview: 2020: Normal fasting glucose November 2022: Fasting blood glucose of 114. Repeat in 1 years time. She has a history of intermittent elevated fasting blood glucoses, the highest of which was 121. Last Assessment & Plan: Repeat fasting blood glucose. Dyslipidemia 11/18/2018 Overview: Images from the original note were not included. February 2022: Elevated triglycerides. Lipids 02/15/2022 11:09 AM CHOLESTEROL 297 TRIGLYCERIDES 446 HDL 57 LDL CALC CANCELED Last Assessment & Plan: No indication yet repeat lipid panel at this time. We will plan to repeat in approximately 4 years, as part of her drug monitoring therapy. 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 Diagnosis: Generalized anxiety disorder, bipolar disorder Previous interventions: Short-acting benzodiazepines Medication prescribed and instructions for use: Klonopin 0.5 mg in the morning and 0.25 mg in the evening. Duration of prescription: other Amount to be dispensed (# of tablets): 45 per month Tapering plan needed: yes Tapering plan if indicated: Plan to continue attempts at tapering in follow-up. Last assessment was 11/12/2022. Monitoring Frequency of visits: 6 month Overseeing transformation consultant: Dr. Back and Consultants [facility] review/documentation:yes Urine drug screening requested?: no Urine screening frequency:other- not indicated 01/2024: Patient stated she is going to a doctor in [place] and does not wish to doctor in [place] because we are not going back to her current benzo dosing and regimen. Follow up as needed. Last Assessment & Plan: Refer to anxiety generalized Disorder regarding clonazepam Anxiety Generalized Disorder 01/14/2017 Overview: Stable on: - Gabapentin 700 mg TID - Prozac 30 mg qd - Seroquel 300. - Klonopin 0.5 mg morning, 0.25 mg PRN 2-3 x a week. 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 Diagnosis: Generalized anxiety disorder, bipolar disorder Previous interventions: Short-acting benzodiazepines Medication prescribed and instructions for use: Klonopin 0.5 mg in the morning and 0.25 mg in the evening. Duration of prescription: other Amount to be dispensed (# of tablets): 45 per month Tapering plan needed: yes Tapering plan if indicated: Plan to continue attempts at tapering in follow-up. Last seen on 11/12/22. Monitoring Frequency of visits: 6 month- NEEDS APPT PRIOR TO FURTHER REFILLS (last visit was 12/2023 Overseeing transformation consultant: PCP/Consultants. [facility] review/documentation:yes Urine drug screening requested?: no Urine screening frequency:other- not indicated 11/2022: Patient requested a dose increase. Spoke with Dr. Chow and he advised against increasing clonazepam frequency. Plans to see patient on 11/23/2022. 04/15/2023: Patient did not show up to Psychiatry visit. No changes to her medication changes recently. Still is taking clonazepam regularly. Good social support system with friends and baptist. No red flags. 07/2023: PSY recs - no clonazepam change for now, f/u in six weeks to discuss taper. 12/2023: reduced to 0.25 qAM, 0.25 qPM 2-3 times per week. 01/2024: Patient stated she is going to a doctor in [place] and does not wish to doctor in [place] because we are not going back to her current benzo dosing and regimen. Follow up as needed. Last Assessment & Plan: Patient is still on a controlled substance and has been for the last several years. She did not attend her psychiatry visit back in November, therefore she should be reassessed by Psychiatry to discuss a potential clonazepam taper. She has been always hesitant about doing this, but she should not be on clonazepam long-term. Therefore plan to start a taper with input from Dr. Chow. Patient will continue on 10 days of clonazepam 0.5 mg q.a.m. and 0.25 mg 2-3 times per week in the afternoon. Afterwards, we will taper her down to 0.25 mg clonazepam q.a.m. and 2.5 mg 2-3 times per week in the afternoon. Follow-up in a month. This taper will likely be 3-6 months in length. After this taper is done, we can probably take her off of the p.r.n. dose and go on 0.25 mg monotherapy for another 3-6 months followed by cessation. Dependence Nicotine 06/22/2016 Overview: 09/16/20: 1/2 PPD presently .Previously offered nicotine replacement, declined. Offered Wellbutrin or Chantix but shared decision making deferred this d/t history of Bipolar disorder w/ previous emily November 2022: Patient is smoking a pack a day. Not enrolled in low-dose lung cancer screening. 04/15/2023: Smoking half a pack a day. Interested in low-dose lung cancer screening program, but will have to think about it. Not interested in medications such as Wellbutrin or Chantix at this time. Last Assessment & Plan: Patient will enroll in low-dose lung cancer screening program when appropriate. She will reach out to me when she makes a decision and I will either enroll or not enroll. Chantix or Wellbutrin must be used with caution in the setting of bipolar disorder with emily, therefore would be inclined to use nicotine instead. Bipolar Disorder 12/13/2014 Overview: 2021: Prozac 30 mg qd. Gabapentin 700 mg TID. Seroquel 25 mg qam and 325 mg qhs. Klonopin 0.5 mg BID PRN per CSA. Followed with Psychiatry. 2022: Increase in anxiety due to life stressors. Still on all medications. Referred back to Psychiatry. Last Assessment & Plan: Refer to anxiety generalized Disorder assessment and plan regarding clonazepam Hypertension Essential Primary 05/18/2014 Overview: 03/23/21: BP elevated in setting of multiple emotional stressors, [employer] return visit ordered in 1 month. 2021: BP goal < 140/90. Amlodipine 5 mg qd. Losartan 100 mg qd 11/18/2022: Blood pressure elevated at 147/81. Amlodipine was increased to 7.5 mg daily. Losartan unchanged. 12/03/2022: didn't make the amlodipine change, but BP was within goal at re- check, so STAYED on amlodipine 5 mg daily. 04/15/2023: No medication changes recently, blood pressure in clinic today is 124/82. No issues with medication compliance. Checks blood pressure at home and is consistently around 110 systolic, 70 diastolic. No symptoms of end-organ damage. Last Assessment & Plan: Maintain on current blood pressure medication regimen. Increase amlodipine as needed. No indication for blood pressure recheck. Immunizations Name Administration Dates Next Due PCV20 02/15/2022 PPSV23 08/12/2014 RZV (SHINGRIX) 11/12/2022,,02/15/2022(Deferre d: Patient decision - needs to check insurance) SARS-COV-2 (COVID-19) - MODE RNA (12 YEARS AND OLDER) [id number] 12/20/2023(Deferred: Patient decision) SARS-COV-2 (COVID-19) - PFIZ ER (Discontinued)(12 years or older) 12/20/2020 SARS-COV-2 (COVID-19) - PFIZ ER BIVALENT TS(Discontinued)(12 YEARS OR OLDER) 04/15/2023(Deferred: Patient decision) Tdap 12/16/2014 influenza vaccine quad (FLUZONE/FLUARIX) (6 months and older)(PF) 12/20/2023(Deferred: Patient decision),11/12/2022,02/15/2022 Social History Tobacco Use Types Packs/Day Years Used Date Smoking Tobacco: Every Day Cigarettes 1 48.7 Started: 08/08/1975 Passive Smoke Exposure: Current Smokeless Tobacco: Never Tobacco Cessation:Ready to Q uit: Not Asked; Counseling Given: Not Answered Alcohol Use Standard Drinks/Week Comments Never 0 (1 standard drink = 0.6 oz pur e alcohol) [facility] [employer] Answer Date Recorded In the past 12 months has e [employer], gas, oil, or water [employer] threatened to shut off services in your [...] week 02/15/2022 How often do you attend chur ch or bahai services? 1 to 4 times per year 02/15/2022 Do you belong to any clubs o r organizations such as baptist groups, unions, fraternal or athletic groups, or [...] Answer Date Recorded PHQ-2 Score 0 12/20/2023 [facility] of Occupat ional Health - Occupational Stress [...] your living situation today? I have a [facility] place to live 12/20/2023 Education Answer Date Recorded What is the highest level of school you have completed or the highest degree you have received? 12th grade 08/12/2019 Sex and Gender Information Value Date Recorded Sex Assigned at Female 12/20/2023 8:28 AM CDT Gender Identity Female 12/20/2023 8:28 AM CDT Sexual Orientation Straight 12/20/2023 8: 28 AM CDT Last Filed Vital Signs Vital Sign Reading Time Taken Comments Blood Pressure 124/86 12/20/2023 8:39 AM CDT Connex spot Pulse 69 12/20/2023 8:39 AM CDT Temperature - - Respiratory Rate - - Oxygen Saturation - - Inhaled Oxygen Concentration - - Weight 85.8 kg (189 lb 2.5 oz) 12/20/19 8:39 AM CDT Height 162.9 cm (5' 4.13) 04/15/2023 8 :40 AM CDT Body Mass Index 32.33 04/15/2023 8:40 AM CDT Plan of Treatment Not on file Procedures Procedure Name Priority Date/Time Associated Diagnosis Comments EXTI COMPREHENSIVE METABOLIC PANEL, S/P Routine 02/22/2024 11:25 AM CDT LIPID PANEL, S Routine 02/15/2022 11:09 AM CDT Maintenance Health Adult from Last 3 Months or Most Recently Relevant to Health Maintenance Results * (ABNORMAL) Lipid Panel (02/15/2022 11:09 AM CDT) [facility] Cholesterol, Total 297(H) mg/dL 2021 3:37 PM CDT DTL Comment: ----REFERENCE VALUE---- Desirable: < 200 Borderline high: 200 - 239 High: > or = 240 Triglycerides 446(H) mg/dL 02/15/2022 3:37 PM CDT DTL Comment: ----REFERENCE VALUE---- Normal: <150 Borderline high: 150-199 High: 200-499 Very high: > or =500 Cholesterol, HDL, S 57 >=50 mg/dL 02/15/2022 3:37 PM CDT DTL Calculated LDL CANCELED mg/dL 02/15/2022 3:37 PM CDT DTL Comment: Triglyceride >400 mg/dL. Calculated LDL cholesterol is not valid. Non-HDL cholesterol may be used for cardiovascular disease risk assessment when triglycerides are >400 mg/dL. Result canceled by the ancillary. Cholesterol, Non-HDL, Calculated 240(H) mg/dL 02/15/2022 3:37 PM CDT DTL Comment: ----REFERENCE VALUE---- Desirable: <130 Above Desirable: 130-159 Borderline high: 160-189 High: 190-219 Very high: > or =220 Blood (Blood, Venous) 02/15/2022 11:09 AM CDT 02/15/2022 3:09 PM CDT Branden De Oliveira, B.Ch., B.A.O. L AB BLOOD ADD-ON [facility] [address] [place] [address], [facility] DTL [facility] [address] [place] [address] from Last 3 Months or Most Recently Relevant to Health Maintenance Care Teams Manager House Relationship Specialty Start Date End Date Asael Smith M.D. [address] [place] [id number] PCP - General 04/06/24
--- OUTSIDE RECORDS SUMMARY | 2024-04-20 14:51 | XMS_ITS ---
Author Organization [facility] Address [address] [place] [address] Care Team Providers Care Security Systems Integrator Name Role Phone Unavailable Unavailable Unavailable Surgery Details Not on file Complications Check Surgery Details section. Procedure Estimated Blood Loss Check Surgery Details section. Procedure Findings Check Surgery Details section. Procedure Specimens Taken Check Surgery Details section.
--- OUTSIDE RECORDS SUMMARY | 2024-04-20 14:51 | XMS_ITS | Clinical Summary ---
Author Organization [facility] Address [address] [place] [address] Care Team Providers Care Wrapper Selector Name Role Phone Asael Smith M.D. Primary Care Provider Source Comments Patient records contain information from all sites at [facility]. For routine questions regarding patient records, call [phone] during business hours, M-F 8:00 AM - 5:00 PM Central Time. Record requests for emergency care only can be directed to [phone] at any time.[facility] Allergies Active Allergy Reactions Criticality Noted Date [...] therapy. 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 Diagnosis: Generalized anxiety disorder, bipolar disorder Previous [...] Monitoring Frequency of visits: 6 month Overseeing railroad design consultant: Dr. 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 Diagnosis: Generalized anxiety disorder, bipolar disorder Previous [...] FURTHER REFILLS (last visit was 12/2023 Overseeing railroad design consultant: PCP/Consultants. [facility] review/documentation:yes Urine drug screening requested?: no Urine screening frequency:other- not indicated 11/2022: Patient requested a dose increase. Spoke with Dr. Chow and he advised against increasing clonazepam frequency. Plans to see patient on 11/23/2022. 04/15/2023: Patient did not show up to Psychiatry visit. No changes to her medication changes recently. Still is taking clonazepam regularly. Good social support system with friends and advent. No red flags. 07/2023: PSY recs - no clonazepam change for now, f/u in six weeks to discuss taper. 12/2023: reduced to 0.25 qAM, 0.25 qPM 2-3 times per week. 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 2021: [...] needed. No indication for blood pressure recheck. Encounters Date Type Department Care Team Description 02/22/2024 11:05 AM CDT - 02/22/2024 2:49 PM CDT Emergency [facility] [address] [place] [address] Atrial Fibrillation Unspecified (HCC) (Primary Dx) Discharge Disposition: Home or Self Care from Last 3 Months Immunizations Name Administration Dates Next Due PCV20 02/15/2022 PPSV23 08/12/2014 RZV (SHINGRIX) 11/12/2022, 2,02/15/2022(Deferre d: Patient decision - needs to check insurance) SARS-COV-2 (COVID-19) - MODE RNA (12 YEARS AND OLDER) [id number] 12/20/2023(Deferred: Patient decision) SARS-COV-2 (COVID-19) - PFIZ ER (Discontinued)(12 years or older) 12/20/2020 SARS-COV-2 (COVID-19) - PFIZ ER BIVALENT TS(Discontinued)(12 YEARS OR OLDER) 04/15/2023(Deferred: Patient decision) Tdap 12/16/2014 influenza vaccine quad (FLUZONE/FLUARIX) (6 months and older)(PF) 12/20/2023(Deferred: Patient decision),11/12/2022,02/15/2022 Family History Medical History Relation Name Comments Hypertension Sister felisha Relation Name Status Comments Sister felisha Social History Tobacco Use Types Packs/Day Years Used Date Smoking Tobacco: Every Day Cigarettes 1 48.7 Started: 08/08/1975 Passive Smoke Exposure: Current Smokeless Tobacco: Never Tobacco Cessation:Ready to Q uit: Not Asked; Counseling Given: Not Answered Alcohol Use Standard Drinks/Week Comments Never 0 (1 standard drink = 0.6 oz pur e alcohol) [facility] [employer] Answer Date Recorded In the past 12 months has e [employer], gas, oil, or water [employer] threatened to shut off services in your [...] often do you attend chur ch or restorationist services? 1 to 4 times per year 02/15/2022 Do you belong to any clubs o r organizations such as advent groups, unions, fraternal or athletic groups, or [...] Answer Date Recorded PHQ-2 Score 0 12/20/2023 [facility] - Occupational Stress Questionnaire Answer Date Recorded [...] your living situation today? I have a [facility] place to live 12/20/2023 Education Answer [...] 04/15/2023 8:40 AM CDT Plan of Treatment Health Maintenance Due Date Last Done Comments CT Colonography 1960 Cologuard 1960 Colonoscopy 1960 Colorectal Cancer Screening 1960 FIT 1960 Hepatitis C Screening 1960 Lung Cancer Screening 1960 Mammogram 1960 COVID-19 Vaccine (3 - 2022-2 4 season) 2023 01/13/2021, 12/20/2020 Tobacco Cessation counseling 04/15/2024 04/15/2023 Visit: Chronic Disease, age 18+ 04/15/2024 Influenza Vaccine (#1) 2024 11/12/2022, 2021 DTaP,Tdap,and Td Vaccines (2 - Td or Tdap) 12/16/2024 12/16/2014 Office Visit for Blood Press ure Check / Re-check 12/19/2024 12/20/2023 Creatinine Level (Kidney Fun ction Test) 02/21/2025 02/22/2024, 04/15/2023, 10/05/2021, Additional history exists Fasting Glucose for Diabetes Screening 02/21/2025 02/22/2024, 04/15/2023, 12/03/2022, Additional history exists Potassium Level 02/21/2025 02/22/2024, 04/06, 10/05/2021, Additional history exists Sodium Level 02/21/2025 02/22/2024, 04/06, 10/05/2021, Additional history exists Lipid (Cholesterol) Screening 02/15/2027, 12/10/2019, 05/15/2018, Additional history exists Pneumococcal vaccine (0-64 years) Completed 022, 08/12/2014 Zoster Vaccines Completed 11/12/2022, 02/15/2022 Depression Screening (Annual PHQ-2) Completed 12/20/2023, 12/20/2023 Procedures Procedure Name Priority Date/Time Associated Diagnosis Comments EXTI COMPREHENSIVE METABOLIC PANEL, S/P Routine 02/22/2024 11:25 AM CDT LIPID PANEL, S Routine 02/15/2022 11:09 AM CDT Maintenance Health Adult from Last 3 Months or Most Recently Relevant to Health Maintenance Results * (ABNORMAL) Lipid Panel (02/15/2022 11:09 AM CDT) Pathologist [facility] Cholesterol, Total 297(H) mg/dL 2021 3:37 PM [...] Oliveira, B.Ch., B.A.O. L AB BLOOD ADD-ON [facility] [address] [place] [address], [facility] [address] [place] [address] from Last 3 Months or Most Recently Relevant to Health Maintenance Care Teams Wrapper Selector Relationship Specialty Start Date End Date Asael Smith M.D. NPElena: [phone] [address] [place] [phone] PCP - General 04/06/24
--- OUTSIDE RECORDS SUMMARY | 2024-04-20 14:51 | XMS_ITS | Encounter Summary ---
Author Organization [facility] Address [address] [place] [address] Care Team Providers Care Mens Locker Room Attendant Name Role Phone Branden Back, B.Ch., B.A.O. Primary Care Provider Unavailable Reason for Visit * Reason Onset Date Comments Med Question 01/03/2024 Encounter Details Date Type Department Care Team (Late st Contact Info) Description 01/03/2024 Clinical Communication Department of Family Medicine, [place], [place] [address] [place] [address] Branden Back M.B., B.Ch., B.A.O. Med Question Social History Tobacco Use Types Packs/Day Years Used Date Smoking Tobacco: Every Day Cigarettes 1 48.7 Started: 08/08/1975 Passive Smoke Exposure: Current Smokeless Tobacco: Never Alcohol Use Standard Drinks/Week Comments Never 0 (1 standard drink = 0.6 oz pur e alcohol) [facility] Utilities Answer Date Recorded In the past 12 months has [facility] [employer] gas, oil, or water [employer] threatened to shut off services in your [...] 02/15/2022 How often do you attend chur or denominational services? 1 to 4 times per year 02/15/2022 Do you belong to any clubs o r organizations such as denominational groups, unions, fraternal or athletic groups, or [...] Answer Date Recorded PHQ-2 Score 0 12/20/2023 [employer] - Occupational Stress [...] your living situation today? I have a [facility] place to live 12/20/2023 Education Answer [...] AM CDT documented as of this encounter Miscellaneous Notes * Telephone Encounter - Gabby Hall, RArinaN. - 01/06/2024 3:00 PM CDT SUBJECTIVE CHIEF COMPLAINT / REASON FOR CALL Med Question Information Discussed Patient informed per Dr. Back: This medication prescription is part of her clonazepam taper that's been laid out by Dr. Chow andimplemented by myself. An increase in anxiety is expected with the taper and I discussed that with her. I don't think it'sa reason for going back to her previous clonazepam doing. If she would like to be referred to addiction medicine/psych for discussion about her clonazepam I am happy to put that in for her. Also per Dr. Wall: Please see note from Dr. Back. Please call and let her know that this is expected at this point. If she has further questions, she can follow-up with Dr. Back (or with addiction medicine if she prefers). Patient states, They have me splitting it and I'm not good with it. Every time I go to the clinic,every year, I have a new doctor and they want to change my medications. I'm tired of it. My doctor in [place] knew what was going on and didn't do that. 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 When offered to schedule a visit to discuss her concerns she states, I don't want to schedule an appointment or talk to Dr. Back. He isn't changing his mind. He has his mind made up and I'mtired of people changing my medications; they just want my money. I'm going to go to a doctor in [place]. I'm going to hang up. Please don't call back. PLAN Disposition/Recommendation: see note above as patient declined scheduling a visit. Provider notified. Information/Education: patient/caller able to teach back Caller agreeable to plan of care: no The following references were used: provider Drs. Back and [facility]. * Telephone Encounter - Tammie Nunez R.N. - 01/03/2024 4:43 PM CDT CHIEF COMPLAINT / REASON FOR CALL Med Question Information Discussed Patient states she was taking 0.5 mg of her clonazepam in the morning and 0.25 every evening as needed for anxiety. Patient states at her last visit her clonazepam was decreased to 0.25 mg every morning and 0.25 mg to be taken as needed, 2-3 times per week. Patient states she would like to go back to taking the 0.5 mg tablet as she is having more anxiety with the decreased dose. Patient would also like a copy of her med list. Told patient I would have a copy of her med list at the desk for her to nut picker. PLAN Disposition/Recommendation: notified provider and awaiting recommendations Information/Education: patient/caller able to teach back Caller agreeable to plan of care: yes The following references were used: nursing clinical judgement documented in this encounter Plan of Treatment Not on file documented as of this encounter Visit Diagnoses Not on filedocumented in this encounter Additional Health Concerns Assessment Noted Time PHQ-9 Depression Total Score: 0 12/20/19 24 8:24 AM CDT documented as of this encounter Care Teams Mens Locker Room Attendant Relationship Specialty Start Date End Date Branden Back M.B., B.Ch., B.A.O. PCP - General 04/06/21 04/05/24 documented as of this encounter
== END 2024-04-20 14:38 | disposition home or self-care (01) ==
LOC: KYNREF 14:38
PROVIDERS: PCP Nurse Practitioner Family; Visit Provider Nurse Practitioner Family
DX: I48.91 Unspecified atrial fibrillation (principal); Z51.81 Encounter for therapeutic drug level monitoring
CPT/HCPCS: 80048

== ENCOUNTER 2024-05-04 13:15 | Outpatient (CLI) | payer SELFPAY ==
--- OUTSIDE RECORDS SUMMARY | 2024-05-05 11:27 | XMS_ITS | Encounter Summary ---
Author Organization [facility] Address [address] [place] [address] Care Team Providers Care Guest Relations Receptionist Name Role Phone Asael Smith M.D. Primary Care Provider Encounter Details Date Type Department Care Team (Late st Contact Info) Description 04/21/2024 Orders Only RST SELF TEST [facility] [address] [place] [address] Asael Smith M.D. [address] [place] [address] Screening Cancer Colon Social History Tobacco Use Types Packs/Day Years Used Date Smoking Tobacco: Every Day Cigarettes 1 48.7 Started: 08/08/1975 Passive Smoke Exposure: Current Smokeless Tobacco: Never Alcohol Use Standard Drinks/Week Comments Never 0 (1 standard drink = 0.6 oz pur e alcohol) [facility] Utilities Answer Date Recorded In the past 12 months has [facility] [employer], gas, oil, or water [employer] threatened to shut off services in your [...] How often do you attend chur or taoist services? 1 to 4 times per year 02/15/2022 Do you belong to any clubs o r organizations such as jew groups, unions, fraternal or athletic groups, or [...] Answer Date Recorded PHQ-2 Score 0 12/20/2023 [facility] Occupat ional Health - Occupational Stress [...] your living situation today? I have a [facility] place to live 12/20/2023 Education Answer [...] AM CDT documented as of this encounter Plan of Treatment Scheduled Orders Name Type Priority Associated Diagnoses Orde r Schedule Cologuard - Sent Out Lab Lab Routine Screening Cancer Colon Expected: 05/05/2024, Expires: 07/22/2025 documented as of this encounter Visit Diagnoses Diagnosis Screening Cancer Colon documented in this encounter Additional Health Concerns Assessment Noted Time PHQ-9 Depression Total Score: 0 12/20/19 8:24 AM CDT documented as of this encounter Care Teams Guest Relations Receptionist Relationship Specialty Start Date End Date Asael Smith M.D. NPElena: [phone] [address] [place] [address] PCP - General 04/06/24 documented as of this encounter
--- OUTSIDE RECORDS SUMMARY | 2024-05-05 11:27 | XMS_ITS | Referral Summary ---
Author Organization [facility] Address [address] [place] [address] Care Team Providers Care Career Services Officer Name Role Phone Asael Smith M.D. Primary Care Provider Source Comments Patient records contain information from all sites at [facility]. For routine questions regarding patient records, call [phone] during business hours, M-F 8:00 AM - 5:00 PM Central Time. Record requests for emergency care only can be directed to [phone] at any time.[facility] Encounters Date Type Department Care Team Description 05/05/2024 Orders Only [facility]ST SELF TEST [facility]ONY [address] [place] [phone] Asael Smith M.D. Screening Cancer Colon 04/21/2024 Orders Only RST SELF TEST ANTHONY [address] [place] [phone] Asael Smith M.D. Screening Cancer Colon 02/22/2024 11:05 AM CDT - 02/22/2024 2:49 PM CDT Emergency [facility] [address] [place] [phone] Atrial Fibrillation Unspecified (HCC) (Primary Dx) Discharge [...] Date Diagnosed Date Maintenance Health Adult 02/15/2022 Overview (04/14/2023): Health Maintenance: Colon CA: cologuard Breast CA: [...] not yet completed. Vaccines: missing covid booster Assessment & Plan (04/15/2023 11:24 AM CDT): Enrolled in mammogram, still needs to be enrolled in low-dose lung cancer screening. Assessment & Plan (11/12/2022 4:47 PM STEWARD/STEWARDESS BATH): Patient open to receiving a Cologuard. Declines low-dose lung cancer screening. Must schedule mammogram. Impaired Fasting Glucose 11/18/2018 Overview (12/04/2022): 2020: Normal fasting glucose November 2022: Fasting blood glucose of 114. Repeat in 1 years time. She has a history of intermittent elevated fasting blood glucoses, the highest of which was 121. Assessment & Plan (11/12/2022 4:39 PM STEWARD/STEWARDESS BATH): Repeat fasting blood glucose. Dyslipidemia 11/18/2018 Overview (11/12/2022): Images from the original note were not included. February 2022: Elevated triglycerides. Lipids 02/15/2022 11:09 AM CHOLESTEROL 297 TRIGLYCERIDES 446 HDL 57 LDL CALC CANCELED Assessment & Plan (11/12/2022 4:46 PM STEWARD/STEWARDESS BATH): No indication yet repeat lipid panel at this time. We will plan to repeat in approximately 4 years, as part of her drug monitoring therapy. 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 Diagnosis: Generalized anxiety disorder, bipolar disorder Previous [...] Monitoring Frequency of visits: 6 month Overseeing storage consultant: Dr. Back and Consultants [facility] review/documentation:yes Urine drug screening requested?: no Urine screening frequency:other- not indicated 01/2024: Patient stated she is going to a doctor in [place] and does not wish to doctor in [place] because we are not going back to her current benzo dosing and regimen. Follow up as needed. Assessment & Plan (12/20/2023 12:32 PM CDT): Refer to anxiety generalized Disorder regarding clonazepam Assessment & Plan (04/15/2023 11:24 AM CDT): Please see assessment and plan for anxiety generalized disorder. Patient should be assessed by Psychiatry. Assessment & Plan (11/12/2022 4:45 PM STEWARD/STEWARDESS BATH): Please refer to anxiety assessment and plan above. Patient is aware that tapering off of Klonopin will be necessary at some point and that there will be a rebound anxiety. She is very adamant about staying on her current medication regimen and is apprehensive about tapering at this time. We will be rechecking a fasting blood sugar today and do not have to check her lipids for the next 5 years. Assessment & Plan (09/16/2020 11:10 AM STEWARD/STEWARDESS BATH): - No changes to CSA. - 6 mo f/u Anxiety Generalized Disorder 01/14/2017 Overview (01/06/2024): Stable on: - Gabapentin 700 mg TID - Prozac 30 mg qd - Seroquel 300. - Klonopin 0.5 mg morning, 0.25 mg PRN 2-3 x a week. 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 Diagnosis: Generalized anxiety disorder, bipolar disorder Previous [...] FURTHER REFILLS (last visit was 12/2023 Overseeing storage consultant: PCP/Consultants. [facility] review/documentation:yes Urine drug screening requested?: no Urine screening frequency:other- not indicated 11/2022: Patient requested a dose increase. Spoke with Dr. Chow and he advised against increasing clonazepam frequency. Plans to see patient on 11/23/2022. 04/15/2023: Patient did not show up to Psychiatry visit. No changes to her medication changes recently. Still is taking clonazepam regularly. Good social support system with friends and restorationism. No red flags. 07/2023: PSY recs - no clonazepam change for now, f/u in six weeks to discuss taper. 12/2023: reduced to 0.25 qAM, 0.25 qPM 2-3 times per week. 01/2024: Patient stated she is going to a doctor in [place] and does not wish to doctor in [place] because we are not going back to her current benzo dosing and regimen. Follow up as needed. Assessment & Plan (12/20/2023 12:32 PM CDT): Patient is still on a controlled substance [...] for another 3-6 months followed by cessation. Assessment & Plan (04/15/2023 11:25 AM CDT): Patient is still on a controlled substance and has been for the last several years. She did not attend her psychiatry visit back in November, therefore she should be reassessed by Psychiatry to discuss a potential clonazepam taper. She has been always hesitant about doing this, but she should not be on clonazepam long-term. Plan to follow-up in 1 years time. She needs to be assessed by Psychiatry ahead of time. Assessment & Plan (11/12/2022 4:43 PM STEWARD/STEWARDESS BATH): Unfortunately, this is a difficult situation. The patient is requesting an increase in Klonopin, however a increase from 0.75 mg daily to 1 mg daily will likely not be very beneficial. I do believe that her increase in anxiety is likely related to the multiple life changes that she is undergone over the past several weeks. Therefore, do believe it would be helpful for her to be looped back in with Psychiatry. I will send a message to her psychiatrist, Dr. Chow, for further guidance. One-week of Klonopin is left. We will refill as appropriate. She declines any referral to therapy. Dependence Nicotine 06/22/2016 Overview (04/15/2023): 09/16/20: 1/2 PPD presently .Previously offered nicotine [...] as Wellbutrin or Chantix at this time. Assessment & Plan (04/15/2023 11:24 AM CDT): Patient will enroll in low-dose lung cancer screening program when appropriate. She will reach out to me when she makes a decision and I will either enroll or not enroll. Chantix or Wellbutrin must be used with caution in the setting of bipolar disorder with emily, therefore would be inclined to use nicotine instead. Assessment & Plan (11/12/2022 4:39 PM STEWARD/STEWARDESS BATH): Patient has been offered enrollment in low-dose lung cancer screening but declines at this time. I have told her to reach out to me should she change her mind Bipolar Disorder 12/13/2014 Overview (11/12/2022): 2021: Prozac 30 mg qd. Gabapentin 700 mg TID. Seroquel 25 mg qam and 325 mg qhs. Klonopin 0.5 mg BID PRN per CSA. Followed with Psychiatry. 2022: Increase in anxiety due to life stressors. Still on all medications. Referred back to Psychiatry. Assessment & Plan (12/20/2023 12:32 PM CDT): Refer to anxiety generalized Disorder assessment and plan regarding clonazepam Assessment & Plan (11/12/2022 4:46 PM STEWARD/STEWARDESS BATH): Please see psychiatry notes and the anxiety assessment and plan. Assessment & Plan (09/16/2020 11:10 AM STEWARD/STEWARDESS BATH): - Continue current medications. - 6 mo CSA recheck. 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 2021: [...] 70 diastolic. No symptoms of end-organ damage. Assessment & Plan (04/15/2023 11:18 AM CDT): Maintain on current blood pressure medication regimen. Increase amlodipine as needed. No indication for blood pressure recheck. Assessment & Plan (11/12/2022 4:39 PM STEWARD/STEWARDESS BATH): Plan to increase amlodipine to 7.5 mg daily. Plan to not change losartan. Not due for any BMP monitoring. Immunizations Name Administration Dates Next Due PCV20 02/15/2022 PPSV23 08/12/2014 RZV (SHINGRIX) 11/12/2022,,02/15/2022(Deferre d: Patient decision - needs to check insurance) SARS-COV-2 (COVID-19) - MODE RNA (12 YEARS AND OLDER) [id number] 12/20/2023(Deferred: Patient decision) SARS-COV-2 (COVID-19) - PFIZ [...] e alcohol) [facility] Utilities Answer Date Recorded In the past 12 months has e [employer], oil, or water [employer] threatened to shut off services in your [...] How often do you attend chur or baptist services? 1 to 4 times per year 02/15/2022 Do you belong to any clubs o r organizations such as restorationism groups, unions, fraternal or athletic groups, or [...] Answer Date Recorded PHQ-2 Score 0 12/20/2023 [facility] Occupat ional Health - Occupational Stress [...] Date Recorded Dental: Regular Dentist Yes 12/20/19 24 Employment Answer Date Recorded Employment status Retired 12/20/2023 Housing Stability Answer Date Recorded What is your living situation today? I have a [facility] [place] place to live 12/20/2023 Education Answer Date [...] Procedure Name Priority Date/Time Associated Diagnosis Comments BASIC METABOLIC PANEL, S/P Routine 04/15/2023 8:27 AM CDT Monitoring For Therapeutic Drug Therapy LIPID PANEL, S Routine 02/15/2022 11:09 AM CDT Maintenance Health Adult from Last 3 Months or Most Recently Relevant to Health Maintenance Results * (ABNORMAL) Lipid Panel (02/15/2022 11:09 AM CDT) [facility] Cholesterol, Total 297(H) mg/dL 2021 [...] Oliveira, B.Ch., B.A.O. L AB BLOOD ADD-ON [facility] [address] [place] [address], [facility] [address] [place] [address] from Last 3 Months or Most Recently Relevant to Health Maintenance Care Teams Career Services Officer Relationship Specialty Start Date End Date Asael Smith M.D. [address] [place] [phone] PCP - General 04/06/24
--- OUTSIDE RECORDS SUMMARY | 2024-05-05 11:27 | XMS_ITS | Clinical Summary ---
Author Organization [facility] Address [address] [place] [address] Care Team Providers Care Software Configuration Engineer Name Role Phone Asael Smith M.D. Primary Care Provider Source Comments Patient records contain information from all sites at [facility]. For routine questions regarding patient records, call [phone] during business hours, M-F 8:00 AM - 5:00 PM Central Time. Record requests for emergency care only can be directed to [phone] at any time.[facility] Allergies Active Allergy Reactions Criticality Noted [...] screening. Assessment & Plan (11/12/2022 4:47 PM TRAILHEAD CONSTRUCTION WORKER): Patient open to receiving a Cologuard. Declines low-dose lung cancer screening. Must schedule mammogram. Impaired Fasting Glucose 11/18/2018 Overview (12/04/2022): 2020: Normal fasting glucose November 2022: Fasting blood glucose of 114. Repeat in 1 years time. She has a history of intermittent elevated fasting blood glucoses, the highest of which was 121. Assessment & Plan (11/12/2022 4:39 PM TRAILHEAD CONSTRUCTION WORKER): Repeat fasting blood glucose. Dyslipidemia 11/18/2018 Overview (11/12/2022): Images from the original note were not included. February 2022: Elevated triglycerides. Lipids 02/15/2022 11:09 AM CHOLESTEROL 297 TRIGLYCERIDES 446 HDL 57 LDL CALC CANCELED Assessment & Plan (11/12/2022 4:46 PM TRAILHEAD CONSTRUCTION WORKER): No indication yet repeat lipid panel at this time. We will plan to repeat in approximately 4 years, as part of her drug monitoring therapy. Monitoring For Therapeutic Drug Therapy 05/15/20 18 Overview (01/06/2024): Controlled Substance Prescribing Plan: Stimulants and Benzodiazepines This patient is expected to be on controlled substances medical terminologist. Diagnosis: Generalized anxiety disorder, bipolar disorder Previous [...] Monitoring Frequency of visits: 6 month Overseeing hospice care consultant: Dr. Back [facility] review/documentation:yes Urine drug screening requested?: no Urine screening frequency:other- not indicated 01/2024: Patient stated she is going to a doctor in [place] and does not wish to doctor in [place] because we are not going back to her current benzo dosing and regimen. Follow up as needed. Assessment & Plan (12/20/2023 12:32 PM CDT): Refer to anxiety generalized Disorder regarding clonazepam Assessment & Plan (04/15/2023 11:24 AM CDT): Please see assessment and plan for anxiety generalized disorder. Patient should be assessed by Psychiatry. Assessment & Plan (11/12/2022 4:45 PM TRAILHEAD CONSTRUCTION WORKER): Please refer to anxiety assessment and plan [...] years. Assessment & Plan (09/16/2020 11:10 AM TRAILHEAD CONSTRUCTION WORKER): - No changes to CSA. - 6 mo f/u Anxiety Generalized Disorder 01/14/2017 Overview (01/06/2024): Stable on: - Gabapentin 700 mg TID - Prozac 30 mg qd - Seroquel 300. - Klonopin 0.5 mg morning, 0.25 mg PRN 2-3 x a week. Controlled Substance Prescribing Plan: Stimulants and Benzodiazepines This patient is expected to be on controlled substances medical terminologist. Diagnosis: Generalized anxiety disorder, bipolar disorder Previous [...] FURTHER REFILLS (last visit was 12/2023 Overseeing hospice care consultant: [facility]Cons[facility]. [facility]:yes Urine drug screening requested?: no Urine screening frequency:other- not indicated 11/2022: Patient requested a dose increase. Spoke with Dr. Chow and he advised against increasing clonazepam frequency. Plans to see patient on 11/23/2022. 04/15/2023: Patient did not show up to Psychiatry visit. No changes to her medication changes recently. Still is taking clonazepam regularly. Good social support system with friends and episcopalian. No red flags. 07/2023: PSY recs - no clonazepam change for now, f/u in six weeks to discuss taper. 12/2023: reduced to 0.25 qAM, 0.25 qPM 2-3 times per week. 01/2024: Patient stated she is going to a doctor in [place] and does not wish to doctor in [place] because we are not going back to [...] time. Assessment & Plan (11/12/2022 4:43 PM TRAILHEAD CONSTRUCTION WORKER): Unfortunately, this is a difficult situation. The [...] instead. Assessment & Plan (11/12/2022 4:39 PM TRAILHEAD CONSTRUCTION WORKER): Patient has been offered enrollment in low-dose [...] clonazepam Assessment & Plan (11/12/2022 4:46 PM TRAILHEAD CONSTRUCTION WORKER): Please see psychiatry notes and the anxiety assessment and plan. Assessment & Plan (09/16/2020 11:10 AM TRAILHEAD CONSTRUCTION WORKER): - Continue current medications. - 6 mo CSA recheck. Hypertension Essential Primary 05/18/2014 Overview (04/15/2023): 03/23/21: BP elevated in setting of multiple emotional stressors, BED CONTROL SPECIALIST return visit ordered in 1 month. 2021: [...] recheck. Assessment & Plan (11/12/2022 4:39 PM TRAILHEAD CONSTRUCTION WORKER): Plan to increase amlodipine to 7.5 mg daily. Plan to not change losartan. Not due for any BMP monitoring. Encounters Date Type Department Care Team Description 05/05/2024 Orders Only RST SELF TEST ANTHONY [address] [place] [phone] Asael Smith M.D. Screening Cancer Colon 04/21/2024 Orders Only RST SELF TEST ANTHONY [address] [place] [phone] Asael Smith M.D. Screening Cancer Colon 02/22/2024 11:05 AM CDT - 02/22/2024 2:49 PM CDT Emergency [facility] [address] [place] [phone] Atrial Fibrillation Unspecified (HCC) (Primary Dx) Discharge Disposition: Home or Self Care from Last 3 Months Immunizations Name Administration Dates Next Due PCV20 02/15/2022 PPSV23 08/12/2014 RZV (SHINGRIX) 11/12/2022,,02/15/2022(Deferre d: Patient decision - needs to check insurance) SARS-COV-2 (COVID-19) - MODE RNA (12 YEARS AND OLDER) [id number] 12/20/2023(Deferred: Patient decision) SARS-COV-2 (COVID-19) - PFIZ [...] drink = 0.6 oz pur e alcohol) [facility] Utilities Answer Date Recorded In the past 12 months has e [employer], gas, oil, or water [employer] threatened to shut off services in your [...] often do you attend chur ch or druze services? 1 to 4 times per year 02/15/2022 Do you belong to any clubs o r organizations such as episcopalian groups, unions, fraternal or athletic groups, or [...] Answer Date Recorded PHQ-2 Score 0 12/20/2023 [facility] of Occupat ional Health - Occupational Stress [...] money to buy more. Never true 12/20/19 Within the past 12 months, t he [...] your living situation today? I have a [facility] place to live 12/20/2023 Education Answer [...] 85.8 kg (189 lb 2.5 oz) 12/20/19 24 8:39 AM CDT Height 162.9 cm (5' [...] (ABNORMAL) Lipid Panel (02/15/2022 11:09 AM CDT) [facility] Cholesterol, Total 297(H) mg/dL 2021 3:37 PM [...] Oliveira, B.Ch., B.A.O. L AB BLOOD ADD-ON [facility] [address] [place] [address], [facility] DTL [facility] [address] [place] [address] from Last 3 Months or Most Recently Relevant to Health Maintenance Care Teams Software Configuration Engineer Relationship Specialty Start Date End Date Asael Smith M.D. NPElena: [phone] [address] [place] [address] PCP - General 04/06/24
--- OUTSIDE RECORDS SUMMARY | 2024-05-05 11:27 | XMS_ITS | Encounter Summary ---
Author Organization [facility] Address [address] [place] [address] Care Team Providers Care Gunner'S Mate G Name Role Phone Asael Smith M.D. Primary Care Provider Encounter Details Date Type Department Care Team (Late st Contact Info) Description 05/05/2024 Orders Only RST SELF TEST ANTHONY [address] [place] [phone] Asael Smith M.D. [address] [place] [address] Screening Cancer Colon Social History Tobacco Use Types Packs/Day Years Used Date Smoking Tobacco: Every Day Cigarettes 1 48.7 Started: 08/08/1975 Passive Smoke Exposure: Current Smokeless Tobacco: Never Alcohol Use Standard Drinks/Week Comments Never 0 (1 standard drink = 0.6 oz pur e alcohol) [facility] Utilities Answer Date Recorded In the past 12 months has [facility] [employer], gas, oil, or water [employer] threatened to shut off services in your [...] How often do you attend chur or mosque services? 1 to 4 times per year 02/15/2022 Do you belong to any clubs o r organizations such as restorationist groups, unions, fraternal or athletic groups, or [...] Answer Date Recorded PHQ-2 Score 0 12/20/2023 [facility] of Occupat ional Health - [...] your living situation today? I have a [facility] place to live 12/20/2023 Education Answer Date [...] documented as of this encounter Care Teams Gunner'S Mate G Relationship Specialty Start Date End Date Asael Smith M.D. [address] [place] [address] PCP - General 04/06/24 documented as of this encounter
--- OUTSIDE RECORDS SUMMARY | 2024-05-05 11:27 | XMS_ITS ---
Author Organization [facility] Address [address] [place] [address] Care Team Providers Care Pharmaceutical Process Engineer Name Role Phone Unavailable Unavailable Unavailable Surgery Details Not on file Complications Check Surgery Details section. Procedure Estimated Blood Loss Check Surgery Details section. Procedure Findings Check Surgery Details section. Procedure Specimens Taken Check Surgery Details section.
--- OUTSIDE RECORDS SUMMARY | 2024-05-05 11:27 | XMS_ITS | Clinical Summary ---
Author Organization [employer] Address [place], [place] [address] Care Team Providers Care Wastewater Treatment Plant Attendant Name Role Phone Roshan Higginbotham NP Primary Care Provider [phone] Allergies Active Allergy Reactions Criticality Noted Date [...] Active ondansetron (ZOFRAN ODT) 4 mg disintegrating tabletIndications:Naus ea, vomiting and diarrhea Place 1 Tablet (4 mg) on the tongue every 8 hours if needed for Nausea/Vomiting . 20 Tablet 02/22/2024 Active metoprolol succinate (Toprol XL) 100 mg Sustained-Release tabletIndications:Pers istent atrial fibrillation (HC) Take 1 Tablet (100 mg) by mouth once daily. 30 Tablet 11 03/26/2024 Active dilTIAZem CD (CARDIZEM CD) 120 mg extended release 24 hr capsuleIndications:Atr ial fibrillation with rapid ventricular response (HC) Take 1 Capsule (120 mg) by mouth once daily before a meal. 30 Capsule 03/26/2024 Active digoxin (LANOXIN) 250 mcg (0.25 mg) tabletIndications:Pers istent atrial fibrillation (HC) Take 1 Tablet (250 mcg) by mouth once daily. 03/26/2024 Active apixaban (Eliquis) 5 mg tabletIndications:Pers istent atrial fibrillation (HC) Take 1 Tablet (5 mg) by mouth two times daily. 60 Tablet 3 03/26/2024 Active Encounters Date Type Department Care Team Description 04/20/[address] [address] Aydin [place] MD Medication Management 04/16/2024 Telephone [facility] [address] [facility] [address] [place] [address] Aydin [place] MD Questions 03/26/2024 10:30 AM CDT Office Visit [facility] [address] [place] [address] Aydin [place] MD 03/13/2024 9:00 AM CDT Ancillary Procedure [facility] [address] [place] [address] 03/13/2024 Orders Only [facility] [address] [place] [address] Judy Mcknight 1 scan: (1-Ord) Final 03/04/2024 Telephone [facility] [address] [place] [address] Nic Romero MD Atrial Fibrillation 02/27/2024 Travel 02/22/2024 11:10 AM CDT - 02/22/2024 2:49 PM CDT Emergency [facility] [address] [place] [address] Irving Meehan MD Atrial fibrillation with rapid [...] (1 of 2) 2010 COVID-19 vaccine series (2022- season) 2023 01/13/2021, 12/20/2020 Influenza for age [...] Results * EXTENDED HOLTER (03/16/2024) Roshan Higginbotham GAS SCRUBBER OPERATOR CARDIAC SERVICES O RD * ECHO TTE COMPLETE WO CONTRAST (03/13/2024 9:57 AM CDT) AORTIC VALVE MEAN PG 6 mmHg PEAK TR VELOCITY 2.2 m/s LVEDD 5.2 cm EJECTION FRACTION 35 - 40% Anatomical Region Laterality Modality Ultrasound 03/13/2024 9:26 AM CDT Narrative 03/13/2024 10:26 AM CDT ECHOCARDIOGRAM AIRAM YOUNG ? Accession#: ?? [id number] : ?1960 63 years Study Date: ?? 03/13/2024 9:26:06 AM Gender: F ?BP: ? 128/75 mmHg Height: 165.00 cm ?BSA: ?1.88 m? ? ? Weight: 81.00 kg ? Tech: ? MBF ? Referring MD: ROSHAN HIGGINBOTHAM Site: ? [facility] Reading Location: Mobile OP Patient Location: Outpatient. [...] . This study was interpreted by an [facility] accredited facility. CC: HIM (med records) [facility]. ??Final ?? Procedure Note Jose Antonio Noriega MD - 03/13/2024 ECHOCARDIOGRAM AIRAM YOUNG : 1960 63 years Study Date: 03/13/2024 9:26:06 AM Gender: F BP: 128/75 mmHg Height: 165.00 cm BSA: 1.88 m? ? ? Weight: 81.00 kg Tech: [facility] Referring MD: ROSHAN HIGGINBOTHAM Site: [facility] Reading Location: Mobile OP Patient [...] . This study was interpreted by an [facility] accredited facility. CC: MARK (med records) [facility]. Final Roshan Higginbotham NP ECHO ORD * (ABNORMAL) TROPONIN T (HS) ONE TIME (02/22/2024 1:27 PM CDT) TROPONIN T HS 13(H) 6-10 ng/L ng/L 02/22/2024 1:52 PM CDT [facility] Blood BLOOD SPECIMEN / Unknown Venipuncture / Unknown 02/22/2024 1:27 PM CDT 02/22/2024 1:28 PM CDT Irving Meehan MD CHEMISTRY Performing Organization Address [facility] Co de Phone Number [address] [address] * (ABNORMAL) PROTIME-INR (02/22/2024 11:26 AM CDT) INR 1.7(H) <1.3 02/22/2024 11:38 AM CDT [facility] PROTIME 19.1(H) 10.3 - 12.3 sec 02/22/2024 11:38 AM CDT [facility] Blood BLOOD SPECIMEN / Unknown Venipuncture / Unknown 02/22/2024 11:26 AM CDT 02/22/2024 11:29 AM CDT [facility] - 02/22/2024 11:38 AM CDT ?Therapeutic Range [...] is on UFH. Irving Meehan MD HEMATOLOGY Performing Organization Address City/[facility] Co de Phone Number [address] [address] * (ABNORMAL) TROPONIN T (HS) ACUTE W/2HR REFLEX (02/22/2024 11:25 AM CDT) TROPONIN T HS 14(H) 6-10 ng/L ng/L 02/22/2024 12:16 PM CDT [facility] Blood BLOOD SPECIMEN / Unknown Venipuncture / Unknown 02/22/2024 11:25 AM CDT 02/22/2024 11:29 AM CDT [facility] - 02/22/2024 12:16 PM CDT hs-cTnT (Elecsys Troponin [...] department patient population. Irving Meehan MD CHEMISTRY [facility] [address] [address] * (ABNORMAL) CBC WITH AUTO DIFFERENTIAL (02/22/2024 11:25 AM CDT) WHITE BLOOD COUNT 7.0 4.5 - 11.0 thou/cu mm 02/22/2024 11:57 AM [facility] RED BLOOD COUNT 4.01 4.00 - 5.20 mil/cu mm 02/22/2024 11:57 AM [facility] HEMOGLOBIN 14.1 12.0 - 16.0 g/dL 02/22/2024 11:57 AM [facility] HEMATOCRIT 42.3 33.0 - 51.0 % 02/22/2024 11:57 AM [facility] MCV 106(H) 80 - 100 fL 02/22/2024 11:57 AM [facility] MCH 35.2(H) 26.0 - 34.0 pg 02/22/2024 11:57 AM [facility] MCHC 33.3 32.0 - 36.0 g/dL 02/22/2024 11:57 AM [facility] RDW 14.3 11.5 - 15.5 % 02/22/2024 11:57 AM [facility] PLATELET COUNT 198 140 - 440 thou/cu mm 02/22/2024 11:57 AM [facility] MPV 10.7 6.5 - 11.0 fL 02/22/2024 11:57 AM [facility] Blood BLOOD SPECIMEN / Unknown Venipuncture / Unknown 02/22/2024 11:25 AM CDT 02/22/2024 11:29 AM CDT Irving Meehan MD HEMATOLOGY [facility] [address] [address] * (ABNORMAL) RED CELL MORPHOLOGY (02/22/2024 11:25 AM CDT) POLYCHROMASIA Slight 02/22/2024 11:57 AM [facility] RBC COMMENT Present(A) RBC morphology appears normal, RBC morphology within normal limits for newborns. 02/22/2024 11:57 AM [facility] Blood BLOOD SPECIMEN / Unknown Venipuncture / Unknown 02/22/2024 11:25 AM CDT 02/22/2024 11:29 AM CDT Irving Meehan MD HEMATOLOGY Performing Organization Address [facility] Co de Phone Number [address] [address] * PLATELET ESTIMATE (02/22/2024 11:25 AM CDT) PLATELET ESTIMATE Adequate Adequate, No estimate 02/22/2024 11:57 AM [facility] Blood BLOOD SPECIMEN / Unknown Venipuncture / Unknown 02/22/2024 11:25 AM CDT 02/22/2024 11:29 AM CDT Irving Meehan MD HEMATOLOGY Performing Organization Address [facility] de Phone Number [address] [address] * MANUAL DIFFERENTIAL (02/22/2024 11:25 AM CDT) % NEUTROPHILS 75.0 % 02/22/2024 11:57 AM [facility] % LYMPHOCYTES 18.0 % 02/22/2024 11:57 AM [facility] % MONOCYTES 7.0 % 02/22/2024 11:57 AM [facility] % EOSINOPHILS 0.0 % 02/22/2024 11:57 AM [facility] % BASOPHILS 0.0 % 02/22/2024 11:57 AM [facility] NEUTROPHILS ABSOLUTE 5.3 1.7 - 7.0 thou/cu mm 02/22/2024 11:57 AM [facility] LYMPHOCYTES ABSOLUTE 1.3 0.9 - 2.9 thou/cu mm 02/22/2024 11:57 AM [facility] MONOCYTES ABSOLUTE 0.5 <0.9 thou/cu mm 02/22/2024 11:57 AM [facility] EOSINOPHILS ABSOLUTE 0.0 <0.5 thou/cu mm 02/22/2024 11:57 AM CDT [facility] BASOPHILS ABSOLUTE 0.0 <0.3 thou/cu mm 02/22/2024 11:57 AM CDT [facility] Blood BLOOD SPECIMEN / Unknown Venipuncture / Unknown 02/22/2024 11:25 AM CDT 02/22/2024 11:29 AM CDT Irving Meehan MD HEMATOLOGY Performing Organization Address [facility] de Phone Number [address] [address] * TSH (02/22/2024 11:25 AM CDT) TSH 1.14 0.27 - 4.20 uIU/mL 02/22/2024 12:16 PM CDT [facility] Blood BLOOD SPECIMEN / Unknown Venipuncture / Unknown 02/22/2024 11:25 AM CDT 02/22/2024 11:29 AM CDT Narrative [facility] - 02/22/2024 12:16 PM CDT In Adults, TSH values between 5.00 and 10.00 uIU/ml do not necessarily indicate the presence of Hypothyroidism. Correlation with clinical findings such as presence of goiter and/or Thyroperoxidase (TPO) Antibody may be helpful. For more information please refer to ROSY 2004; 291: 228-238. Irving Meehan MD CHEMISTRY Performing Organization Address [facility] Co de Phone Number [address] [address] * MAGNESIUM (02/22/2024 11:25 AM CDT) MAGNESIUM 1.7 1.6 - 2.4 mg/dL 02/22/2024 12:16 PM CDT [facility] Blood BLOOD SPECIMEN / Unknown Venipuncture / Unknown 02/22/2024 11:25 AM CDT 02/22/2024 11:29 AM CDT Irving Meehan MD CHEMISTRY Performing Organization Address City/[facility]/ZIP Co de Phone Number [address] [address] * LIPASE (02/22/2024 11:25 AM CDT) LIPASE 13.1 13.0 - 60.0 IU/L 02/22/2024 12:16 PM [facility] Blood BLOOD SPECIMEN / Unknown Venipuncture / Unknown 02/22/2024 11:25 AM CDT 02/22/2024 11:29 AM CDT Irving Meehan MD CHEMISTRY Performing Organization Address [facility] Co de Phone Number [address] [address] * (ABNORMAL) COMP METABOLIC PANEL (02/22/2024 11:25 AM CDT) SODIUM 139 136 - 145 mmol/L 02/22/2024 12:16 PM [facility] POTASSIUM 4.4 3.5 - 5.1 mmol/L 02/22/2024 12:16 PM [facility] CHLORIDE 102 98 - 107 mmol/L 02/22/2024 12:16 PM [facility] CO2,TOTAL 21(L) 22 - 29 mmol/L 02/22/2024 12:16 PM [facility] ANION GAP 16 5 - 18 02/22/2024 12:16 PM [facility] GLUCOSE 131(H) 70 - 99 mg/dL 02/22/2024 12:16 PM [facility] CALCIUM 9.4 8.8 - 10.2 mg/dL 02/22/2024 12:16 PM [facility] BUN 18 8 - 23 mg/dL 02/22/2024 12:16 PM [facility] CREATININE 1.17(H) 0.50 - 0.90 mg/dL 02/22/2024 12:16 PM [facility] BUN/CREAT RATIO 15 10 - 20 4 12:16 PM [facility] eGFR 53(L) >90 mL/min/1.7 3m2 02/22/2024 12:16 PM [facility] Comment:As of 2021, eG FR is calculated by the CKD-EPI creatinine equation without race adjustment. ??eGFR can be influenced by muscle mass, exercise, and diet. ??The reported eGFR is an estimation only and is only applicable if the renal function is stable. ALBUMIN 4.3 4.0 - 4.9 g/dL 02/22/2024 12:16 PM [facility] PROTEIN,TOTAL 7.3 6.0 - 8.0 g/dL 02/22/2024 12:16 PM [facility] BILIRUBIN,TOTAL 1.5(H) 0.0 - 1.2 mg/dL 02/22/2024 12:16 PM [facility] ALK PHOSPHATASE 234(H) 35 - 104 IU/L 02/22/2024 12:16 PM [facility] ALT (SGPT) 20 10 - 35 IU/L 02/22/2024 12:16 PM [facility] AST (SGOT) 41(H) 10 - 35 IU/L 02/22/2024 12:16 PM [facility] Blood BLOOD SPECIMEN / Unknown Venipuncture / Unknown 02/22/2024 11:25 AM CDT 02/22/2024 11:29 AM CDT Irving Meehan MD CHEMISTRY [facility] [address] [address] * EKG 12 LEAD (02/22/2024 11:11 AM [...] NOW QTc 412 ms BEYOND NOW P [place] degrees BEYOND NOW R [place] 115 degrees BEYOND NOW T [place] -133 degrees BEYOND NOW 02/22/2024 11:1 1 AM CDT 02/23/2024 1:39 PM CDT Irving Meehan MD EKG ORD BEYOND NOW [place], [place] * CRITICAL CARE PROVIDED (02/22/2024 11:07 [...] ORD from Last 3 Months Care Teams Wastewater Treatment Plant Attendant Relationship Specialty Start Date End Date Roshan Higginbotham GAS SCRUBBER OPERATOR [address] [place] [address] PCP - General 04/17/24
--- OUTSIDE RECORDS SUMMARY | 2024-05-05 11:27 | XMS_ITS | Encounter Summary ---
Author Organization [facility] Address [address] [place] [address] Care Team Providers Care Pbx Inspector Name Role Phone Branden Back, B.Lore., B.A.O. Primary Care Provider Unavailable Reason for Visit * Reason Comments Vomiting Encounter Details Date Type Department Care Team (Late st Contact Info) Description 02/22/2024 11:05 AM CDT - 02/22/2024 2:49 PM CDT Emergency [facility] [address], [place] [address] Atrial Fibrillation Unspecified (HCC) (Primary Dx) Discharge Disposition: Home or Self Care Social History Tobacco Use Types Packs/Day Years Used Date Smoking Tobacco: Every Day Cigarettes 1 48.7 Started: 08/08/1975 Passive Smoke Exposure: Current Smokeless Tobacco: Never Alcohol Use Standard Drinks/Week Comments Never 0 (1 standard drink = 0.6 oz pur e alcohol) [facility] Utilities Answer Date Recorded In the past 12 months has e Float: [place], gas, oil, or water [employer] threatened to shut off services in your [...] week 02/15/2022 How often do you attend formerly [facility] or catholic services? 1 to 4 times per year 02/15/2022 Do you belong to any clubs o r organizations such as buddhist groups, unions, fraternal or athletic groups, or [...] Answer Date Recorded PHQ-2 Score 0 12/20/2023 [facility] Occupat ional Health - Occupational Stress [...] your living situation today? I have a [facility] place to live 12/20/2023 Education Answer [...] documented as of this encounter Care Teams Pbx Inspector Relationship Specialty Start Date End Date Branden Back M.B., B.Ch., B.A.O. PCP - General 04/06/21 04/05/24 documented as of this encounter
--- OUTSIDE RECORDS SUMMARY | 2024-05-05 11:28 | XMS_ITS | Encounter Summary ---
Author Organization [facility] Address [address] [place] [address] Care Team Providers Care Solution Consultant Name Role Phone Branden Back, B.Ch., B.A.O. Primary Care Provider Unavailable Reason for Visit * Reason Onset Date Comments Med Question 01/03/2024 Encounter Details Date Type Department Care Team (Late st Contact Info) Description 01/03/2024 Clinical Communication Department of Family Medicine, [place], [place] [address] [place] [address] Branden Back M.B., B.Ch., B.A.O. Med Question Social History Tobacco Use Types Packs/Day Years Used Date Smoking Tobacco: Every Day Cigarettes 1 48.7 Started: 08/08/1975 Passive Smoke Exposure: Current Smokeless Tobacco: Never Alcohol Use Standard Drinks/Week Comments Never 0 (1 standard drink = 0.6 oz pur e alcohol) [facility] Utilities Answer Date Recorded In the past 12 months has [facility] [employer] gas, oil, or water [employer] threatened to shut off services in your [...] How often do you attend chur or yarsani services? 1 to 4 times per year 02/15/2022 Do you belong to any clubs o r organizations such as muslim groups, unions, fraternal or athletic groups, or [...] Answer Date Recorded PHQ-2 Score 0 12/20/2023 [facility] of Occupat ional Health - Occupational [...] your living situation today? I have a [facility] place to live 12/20/2023 Education Answer [...] I'm tired of it. My doctor in [place] knew what was going on and didn't [...] going to go to a doctor in [place]. I'm going to hang up. Please don't [...] list at the desk for her to filler picker. PLAN Disposition/Recommendation: notified provider and awaiting [...] documented as of this encounter Care Teams Solution Consultant Relationship Specialty Start Date End Date Branden Back M.B., B.Ch., B.A.O. PCP - General 04/06/21 04/05/24 documented as of this encounter
== END 2024-05-04 13:16 | disposition home or self-care (01) ==
LOC: NFLDREF 05-05 11:25
PROVIDERS: PCP Nurse Practitioner Family; Referring Provider Nurse Practitioner Family; Visit Provider Nurse Practitioner Family
DX: I48.91 Unspecified atrial fibrillation (principal)
CPT/HCPCS: 85610

== ENCOUNTER 2024-05-11 09:19 | Outpatient (CLI) | payer SELFPAY ==
--- OUTSIDE RECORDS SUMMARY | 2024-05-12 14:17 | XMS_ITS | Encounter Summary ---
Author Organization [facility] Address [address] [place] [address] Care Team Providers Care Insurance Sales Supervisor Name Role Phone Asael Smith M.D. Primary Care Provider Encounter Details Date Type Department Care Team (Late st Contact Info) Description 04/21/2024 Orders Only [facility] [address] [place] [address] Asael Smith M.D. [address] [place] [address] Screening Cancer Colon Social History Tobacco Use Types Packs/Day Years Used Date Smoking Tobacco: Every Day Cigarettes 1 48.8 Started: 08/08/1975 Passive Smoke Exposure: Current Smokeless Tobacco: Never Alcohol Use Standard Drinks/Week Comments Never 0 (1 standard drink = 0.6 oz pur e alcohol) [facility] Utilities Answer Date Recorded In the past 12 months has [facility] [employer], gas, oil, or water [employer] threatened to shut off services in your [...] How often do you attend chur or anabaptism services? 1 to 4 times per year 02/15/2022 Do you belong to any clubs o r organizations such as zoroastrian groups, unions, fraternal or athletic groups, or [...] your living situation today? I have a [facility] place to live 12/20/2023 Education Answer Date [...] documented as of this encounter Care Teams Insurance Sales Supervisor Relationship Specialty Start Date End Date Asael Smith M.D. NPElena: [phone] [address] [place] [address] PCP - General 04/06/24 documented as of this encounter
--- OUTSIDE RECORDS SUMMARY | 2024-05-12 14:17 | XMS_ITS | Encounter Summary ---
Author Organization [facility] Address [address] [place] [address] Care Team Providers Care Cook 3 Pastry Name Role Phone Branden Back, B.Lore., B.A.O. Primary Care Provider Unavailable Reason for Visit * Reason Comments Vomiting Encounter Details Date Type Department Care Team (Late st Contact Info) Description 02/22/2024 11:05 AM CDT - 02/22/2024 2:49 PM CDT Emergency [facility] [address], [place] [address] Atrial Fibrillation Unspecified (HCC) (Primary Dx) Discharge Disposition: Home or Self Care Social History Tobacco Use Types Packs/Day Years Used Date Smoking Tobacco: Every Day Cigarettes 1 48.8 Started: 08/08/1975 Passive Smoke Exposure: Current Smokeless Tobacco: Never Alcohol Use Standard Drinks/Week Comments Never 0 (1 standard drink = 0.6 oz pur e alcohol) [facility] Utilities Answer Date Recorded In the past 12 months has e [employer], gas, oil, or water [employer] threatened to shut off services in your [...] week 02/15/2022 How often do you attend [facility] or mu-ism services? 1 to 4 times per year 02/15/2022 Do you belong to any clubs o r organizations such as gnosticism groups, unions, fraternal or athletic groups, or [...] Date Recorded PHQ-2 Score 0 12/20/2023 [facility] of Occupat ional Health - Occupational [...] living situation today? I have a [facility] place to live 12/20/2023 Education Answer [...] documented as of this encounter Care Teams Cook 3 Pastry Relationship Specialty Start Date End Date Branden Back M.B., B.Ch., B.A.O. PCP - General 04/06/21 04/05/24 documented as of this encounter
--- OUTSIDE RECORDS SUMMARY | 2024-05-12 14:17 | XMS_ITS | Clinical Summary ---
Author Organization [facility] Address [address] [place] [address] Care Team Providers Care Rn Plasma Center Name Role Phone Asael Smith M.D. Primary Care Provider Source Comments Patient records contain information from all sites at [facility]. For routine questions regarding patient records, call [phone] during business hours, M-F 8:00 AM - 5:00 PM Central Time. Record requests for emergency care only can be directed to [phone] at any time.[facility] Allergies Active Allergy Reactions Criticality Noted Date [...] screening. Assessment & Plan (11/12/2022 4:47 PM BEFORE SCHOOL BABYSITTER): Patient open to receiving a Cologuard. Declines low-dose lung cancer screening. Must schedule mammogram. Impaired Fasting Glucose 11/18/2018 Overview (12/04/2022): 2020: Normal fasting glucose November 2022: Fasting blood glucose of 114. Repeat in 1 years time. She has a history of intermittent elevated fasting blood glucoses, the highest of which was 121. Assessment & Plan (11/12/2022 4:39 PM BEFORE SCHOOL BABYSITTER): Repeat fasting blood glucose. Dyslipidemia 11/18/2018 Overview (11/12/2022): Images from the original note were not included. February 2022: Elevated triglycerides. Lipids 02/15/2022 11:09 AM CHOLESTEROL 297 TRIGLYCERIDES 446 HDL 57 LDL CALC CANCELED Assessment & Plan (11/12/2022 4:46 PM BEFORE SCHOOL BABYSITTER): No indication yet repeat lipid panel at this time. We will plan to repeat in approximately 4 years, as part of her drug monitoring therapy. Monitoring For Therapeutic Drug Therapy 05/15/20 18 Overview (01/06/2024): Controlled Substance Prescribing Plan: Stimulants and Benzodiazepines This patient is expected to be on controlled substances usp. Diagnosis: Generalized anxiety disorder, bipolar disorder Previous [...] Monitoring Frequency of visits: 6 month Overseeing strategic consultant: Dr. Back and Consultants [facility] review/documentation:yes Urine drug screening requested?: no Urine screening frequency:other- not indicated 01/2024: Patient stated she is going to a doctor in [place] and does not wish to doctor in [place] because we are not going back to her current benzo dosing and regimen. Follow up as needed. Assessment & Plan (12/20/2023 12:32 PM CDT): Refer to anxiety generalized Disorder regarding clonazepam Assessment & Plan (04/15/2023 11:24 AM CDT): Please see assessment and plan for anxiety generalized disorder. Patient should be assessed by Psychiatry. Assessment & Plan (11/12/2022 4:45 PM BEFORE SCHOOL BABYSITTER): Please refer to anxiety assessment and plan [...] years. Assessment & Plan (09/16/2020 11:10 AM BEFORE SCHOOL BABYSITTER): - No changes to CSA. - 6 mo f/u Anxiety Generalized Disorder 01/14/2017 Overview (01/06/2024): Stable on: - Gabapentin 700 mg TID - Prozac 30 mg qd - Seroquel 300. - Klonopin 0.5 mg morning, 0.25 mg PRN 2-3 x a week. Controlled Substance Prescribing Plan: Stimulants and Benzodiazepines This patient is expected to be on controlled substances usp. Diagnosis: Generalized anxiety disorder, bipolar disorder Previous [...] FURTHER REFILLS (last visit was 12/2023 Overseeing strategic consultant: [facility] Urine drug screening requested?: no Urine screening frequency:other- not indicated 11/2022: Patient requested a dose increase. Spoke with Dr. Chow and he advised against increasing clonazepam frequency. Plans to see patient on 11/23/2022. 04/15/2023: Patient did not show up to Psychiatry visit. No changes to her medication changes recently. Still is taking clonazepam regularly. Good social support system with friends and mu-ism. No red flags. 07/2023: PSY recs - no clonazepam change for now, f/u in six weeks to discuss taper. 12/2023: reduced to 0.25 qAM, 0.25 qPM 2-3 times per week. 01/2024: Patient stated she is going to a doctor in [place] and does not wish to doctor in [place] because we are not going back to [...] time. Assessment & Plan (11/12/2022 4:43 PM BEFORE SCHOOL BABYSITTER): Unfortunately, this is a difficult situation. The [...] instead. Assessment & Plan (11/12/2022 4:39 PM BEFORE SCHOOL BABYSITTER): Patient has been offered enrollment in low-dose [...] clonazepam Assessment & Plan (11/12/2022 4:46 PM BEFORE SCHOOL BABYSITTER): Please see psychiatry notes and the anxiety assessment and plan. Assessment & Plan (09/16/2020 11:10 AM BEFORE SCHOOL BABYSITTER): - Continue current medications. - 6 mo CSA recheck. Hypertension Essential Primary 05/18/2014 Overview (04/15/2023): 03/23/21: BP elevated in setting of multiple emotional stressors, FISCAL MANAGER return visit ordered in 1 month. 2021: [...] recheck. Assessment & Plan (11/12/2022 4:39 PM BEFORE SCHOOL BABYSITTER): Plan to increase amlodipine to 7.5 mg daily. Plan to not change losartan. Not due for any BMP monitoring. Encounters Date Type Department Care Team Description 05/05/2024 Orders Only RST SELF TEST [facility]THON[facility] [address] [place] [phone] Asael Smith M.D. Screening Cancer Colon 04/21/2024 Orders Only RST SELF TEST ANTHONY [address] [place] [phone] Asael Smith M.D. Screening Cancer Colon 02/22/2024 11:05 AM CDT - 02/22/2024 2:49 PM CDT Emergency [facility] [address] [place] [address] Atrial Fibrillation Unspecified (HCC) (Primary Dx) Discharge Disposition: Home or Self Care from Last 3 Months Immunizations Name Administration Dates Next Due PCV20 02/15/2022 PPSV23 08/12/2014 RZV (SHINGRIX) 11/12/2022,,02/15/2022(Deferre d: Patient decision - needs to check insurance) SARS-COV-2 (COVID-19) - MODE RNA (12 YEARS AND OLDER) [id number] 12/20/2023(Deferred: Patient decision) SARS-COV-2 (COVID-19) - PFIZ [...] 0.6 oz pur e alcohol) [facility] Utilities Answer Date Recorded In the past 12 months has e [employer], gas, oil, or water [employer] threatened to shut off services in your [...] often do you attend chur ch or restorationism services? 1 to 4 times per year 02/15/2022 Do you belong to any clubs o r organizations such as mu-ism groups, unions, fraternal or athletic groups, or [...] Answer Date Recorded PHQ-2 Score 0 12/20/2023 [facility] - [...] living situation today? I have a [facility] place to live 12/20/2023 Education Answer Date [...] (ABNORMAL) Lipid Panel (02/15/2022 11:09 AM CDT) [facility] Cholesterol, Total 297(H) mg/dL 2021 3:37 PM [...] Oliveira, B.Ch., B.A.O. L AB BLOOD ADD-ON [facility] [place] [address] [place] [address], [facility] DTL [facility] [address] [place] [address] from Last 3 Months or Most Recently Relevant to Health Maintenance Care Teams Rn Plasma Center Relationship Specialty Start Date End Date Asael Smith M.D. NPElena: [phone] [address] [place] [address] PCP - General 04/06/24
--- OUTSIDE RECORDS SUMMARY | 2024-05-12 14:17 | XMS_ITS ---
Author Organization [facility] Address [address] [place] [address] Care Team Providers Care Rail Express Clerk Name Role Phone Unavailable Unavailable Unavailable Surgery Details Not on file Complications Check Surgery Details section. Procedure Estimated Blood Loss Check Surgery Details section. Procedure Findings Check Surgery Details section. Procedure Specimens Taken Check Surgery Details section.
--- OUTSIDE RECORDS SUMMARY | 2024-05-12 14:17 | XMS_ITS | Encounter Summary ---
Author Organization [facility] Address [address] [place] [address] Care Team Providers Care High Heel Builder Name Role Phone Asael Smith M.D. Primary Care Provider Encounter Details Date Type Department Care Team (Late st Contact Info) Description 05/05/2024 Orders Only RST SELF TEST ANTHONY [address] [place] [address] Asael Smith M.D. [address] [place] [address] Screening Cancer Colon Social History Tobacco Use Types Packs/Day Years Used Date Smoking Tobacco: Every Day Cigarettes 1 48.8 Started: 08/08/1975 Passive Smoke Exposure: Current Smokeless Tobacco: Never Alcohol Use Standard Drinks/Week Comments Never 0 (1 standard drink = 0.6 oz pur e alcohol) [facility] Utilities Answer Date Recorded In the past 12 months has [facility], gas, oil, or water [employer] threatened to shut off services in your [...] How often do you attend chur or pentecostalism services? 1 to 4 times per year 02/15/2022 Do you belong to any clubs o r organizations such as yarsanism groups, unions, fraternal or athletic groups, or [...] Answer Date Recorded PHQ-2 Score 0 12/20/2023 [facility] - Occupational [...] your living situation today? I have a [facility] place to live 12/20/2023 Education Answer [...] documented as of this encounter Care Teams High Heel Builder Relationship Specialty Start Date End Date Asael Smith M.D. [address] [place] [address] PCP - General 04/06/24 documented as of this encounter
--- OUTSIDE RECORDS SUMMARY | 2024-05-12 14:17 | XMS_ITS | Clinical Summary ---
Author Organization [facility] Address [place], [place] [address] Care Team Providers Care Heel Painter Name Role Phone Roshan Higginbotham NP Primary Care Provider [phone] Allergies Active Allergy Reactions Criticality Noted Date [...] Type Department Care Team Description 04/20/[address] [address] Aydin Washington MD Medication Management 04/16/2024 Telephone [facility] [address] [facility] [address] [place] [address] Aydin Washington MD Questions 03/26/2024 10:30 AM CDT Office Visit [facility] [address] [place] [address] Aydin Washington MD 03/13/2024 9:00 AM CDT Ancillary Procedure [facility] [address] [place] [address] 03/13/[address] [facility] [address] [place] [address] Judy Mcknight 1 scan: (1-Ord) Final 03/04/2024 Telephone [facility] [address] [place] [address] Nic Romero MD Atrial Fibrillation 02/27/2024 Travel 02/22/2024 11:10 AM CDT - 02/22/2024 2:49 PM CDT Emergency [facility] [address] [place] [address] [place] Meehan MD Atrial fibrillation with rapid [...] Results * EXTENDED HOLTER (03/16/2024) Roshan Higginbotham CLERK SUPERVISOR CARDIAC SERVICES O RD * ECHO TTE COMPLETE WO CONTRAST (03/13/2024 9:57 AM CDT) AORTIC VALVE MEAN PG 6 mmHg PEAK TR VELOCITY 2.2 m/s LVEDD 5.2 cm EJECTION FRACTION 35 - 40% Anatomical Region Laterality Modality Ultrasound 03/13/2024 9:26 AM CDT Narrative 03/13/2024 10:26 AM CDT ECHOCARDIOGRAM AIRAM YOUNG ? Accession#: ?? [id number] : ?1960 63 years Study Date: ?? 03/13/2024 9:26:06 AM Gender: F ?BP: ? 128/75 mmHg Height: 165.00 cm ?BSA: ?1.88 m? ? ? Weight: 81.00 kg ? Tech: ? MBF ? Referring MD: ROSHAN HIGGINBOTHAM Site: ? [facility] Reading Location: Mobile OP Patient Location: [...] . This study was interpreted by an [facility] accredited facility. CC: HIM (med records) [facility]. ??Final ?? Procedure Note Jose Antonio Noriega MD - 03/13/2024 ECHOCARDIOGRAM AIRAM YOUNG : 1960 63 years Study Date: 03/13/2024 9:26:06 AM Gender: F BP: 128/75 mmHg Height: 165.00 cm BSA: 1.88 m? ? ? Weight: 81.00 kg Tech: [facility] Referring MD: ROSHAN HIGGINBOTHAM Site: [facility] Reading Location: Mobile [...] . This study was interpreted by an [facility] accredited facility. CC: MARK (med records) [facility]. Final Roshan Higginbotham NP ECHO ORD * (ABNORMAL) TROPONIN T (HS) ONE TIME (02/22/2024 1:27 PM CDT) TROPONIN T HS 13(H) 6-10 ng/L ng/L 02/22/2024 1:52 PM CDT [facility] Blood BLOOD SPECIMEN / Unknown Venipuncture / Unknown 02/22/2024 1:27 PM CDT 02/22/2024 1:28 PM CDT [place] Meehan MD CHEMISTRY Performing Organization Address [facility] Co de Phone Number [address] [address] * (ABNORMAL) PROTIME-INR (02/22/2024 11:26 AM CDT) INR 1.7(H) <1.3 02/22/2024 11:38 AM CDT [facility] PROTIME 19.1(H) 10.3 - 12.3 sec 02/22/2024 11:38 AM CDT [facility] Blood BLOOD SPECIMEN / Unknown Venipuncture / Unknown 02/22/2024 11:26 AM CDT 02/22/2024 11:29 AM CDT [facility] - 02/22/2024 11:38 AM CDT ?Therapeutic Range [...] [place] Meehan MD HEMATOLOGY Performing Organization Address [facility] Co de Phone Number [address] [address] * (ABNORMAL) TROPONIN T (HS) ACUTE W/2HR REFLEX (02/22/2024 11:25 AM CDT) TROPONIN T HS 14(H) 6-10 ng/L ng/L 02/22/2024 12:16 PM CDT [facility] Blood BLOOD SPECIMEN / Unknown Venipuncture / Unknown 02/22/2024 11:25 AM CDT 02/22/2024 11:29 AM CDT [facility] - 02/22/2024 12:16 PM CDT hs-cTnT ([employer] [...] department patient population. [place] Meehan MD CHEMISTRY [facility] [address] [address] * (ABNORMAL) CBC WITH AUTO DIFFERENTIAL (02/22/2024 11:25 AM CDT) WHITE BLOOD COUNT 7.0 4.5 - 11.0 thou/cu mm 02/22/2024 11:57 AM [facility] RED BLOOD COUNT 4.01 4.00 - 5.20 mil/cu mm 02/22/2024 11:57 AM [facility] HEMOGLOBIN 14.1 12.0 - 16.0 g/dL 02/22/2024 11:57 AM [facility] HEMATOCRIT 42.3 33.0 - 51.0 % 02/22/2024 11:57 AM [facility] MCV 106(H) 80 - 100 fL 02/22/2024 11:57 AM [facility] MCH 35.2(H) 26.0 - 34.0 pg 02/22/2024 11:57 AM [facility] MCHC 33.3 32.0 - 36.0 g/dL 02/22/2024 11:57 AM [facility] RDW 14.3 11.5 - 15.5 % 02/22/2024 11:57 AM [facility] PLATELET COUNT 198 140 - 440 thou/cu mm 02/22/2024 11:57 AM [facility] MPV 10.7 6.5 - 11.0 fL 02/22/2024 11:57 AM [facility] Blood BLOOD SPECIMEN / Unknown Venipuncture / Unknown 02/22/2024 11:25 AM CDT 02/22/2024 11:29 AM CDT [place] eMehan MD HEMATOLOGY [facility] [address] [address] * (ABNORMAL) RED CELL MORPHOLOGY (02/22/2024 11:25 AM CDT) POLYCHROMASIA Slight 02/22/2024 11:57 AM [facility] RBC COMMENT Present(A) RBC morphology appears normal, RBC morphology within normal limits for newborns. 02/22/2024 11:57 AM [facility] Blood BLOOD SPECIMEN / Unknown Venipuncture / Unknown 02/22/2024 11:25 AM CDT 02/22/2024 11:29 AM CDT [place] Meehan MD HEMATOLOGY Performing Organization Address [facility] Co de Phone Number [address] [address] * PLATELET ESTIMATE (02/22/2024 11:25 AM CDT) PLATELET ESTIMATE Adequate Adequate, No estimate 02/22/2024 11:57 AM [facility] Blood BLOOD SPECIMEN / Unknown Venipuncture / Unknown 02/22/2024 11:25 AM CDT 02/22/2024 11:29 AM CDT [place] Meehan MD HEMATOLOGY Performing Organization Address [facility] de Phone Number [address] [address] * MANUAL DIFFERENTIAL (02/22/2024 11:25 AM CDT) % NEUTROPHILS 75.0 % 02/22/2024 11:57 AM [facility] % LYMPHOCYTES 18.0 % 02/22/2024 11:57 AM [facility] % MONOCYTES 7.0 % 02/22/2024 11:57 AM [facility] % EOSINOPHILS 0.0 % 02/22/2024 11:57 AM [facility] % BASOPHILS 0.0 % 02/22/2024 11:57 AM [facility] NEUTROPHILS ABSOLUTE 5.3 1.7 - 7.0 thou/cu mm 02/22/2024 11:57 AM [facility] LYMPHOCYTES ABSOLUTE 1.3 0.9 - 2.9 thou/cu mm 02/22/2024 11:57 AM [facility] MONOCYTES ABSOLUTE 0.5 <0.9 thou/cu mm 02/22/2024 11:57 AM [facility] EOSINOPHILS ABSOLUTE 0.0 <0.5 thou/cu mm 02/22/2024 11:57 AM CDT [facility] BASOPHILS ABSOLUTE 0.0 <0.3 thou/cu mm 02/22/2024 11:57 AM CDT [facility] Blood BLOOD SPECIMEN / Unknown Venipuncture / Unknown 02/22/2024 11:25 AM CDT 02/22/2024 11:29 AM CDT [place] Meehan MD HEMATOLOGY Performing Organization Address [facility] de Phone Number [address] [address] * TSH (02/22/2024 11:25 AM CDT) TSH 1.14 0.27 - 4.20 uIU/mL 02/22/2024 12:16 PM CDT [facility] Blood BLOOD SPECIMEN / Unknown Venipuncture / Unknown 02/22/2024 11:25 AM CDT 02/22/2024 11:29 AM CDT Narrative [facility] - 02/22/2024 12:16 PM CDT In Adults, TSH values between 5.00 and 10.00 uIU/ml do not necessarily indicate the presence of Hypothyroidism. Correlation with clinical findings such as presence of goiter and/or Thyroperoxidase (TPO) Antibody may be helpful. For more information please refer to ROSY 2004; 291: 228-238. [place] Meehan MD CHEMISTRY Performing Organization Address [facility] Co de Phone Number [address] [address] * MAGNESIUM (02/22/2024 11:25 AM CDT) MAGNESIUM 1.7 1.6 - 2.4 mg/dL 02/22/2024 12:16 PM CDT [facility] Blood BLOOD SPECIMEN / Unknown Venipuncture / Unknown 02/22/2024 11:25 AM CDT 02/22/2024 11:29 AM CDT [place] Meehan MD CHEMISTRY Performing Organization Address City/[facility]/ZIP Co de Phone Number [address] [address] * LIPASE (02/22/2024 11:25 AM CDT) LIPASE 13.1 13.0 - 60.0 IU/L 02/22/2024 12:16 PM [facility] Blood BLOOD SPECIMEN / Unknown Venipuncture / Unknown 02/22/2024 11:25 AM CDT 02/22/2024 11:29 AM CDT [place] Meehan MD CHEMISTRY Performing Organization Address [facility] Co de Phone Number [address] [address] * (ABNORMAL) COMP METABOLIC PANEL (02/22/2024 11:25 AM CDT) SODIUM 139 136 - 145 mmol/L 02/22/2024 12:16 PM [facility] POTASSIUM 4.4 3.5 - 5.1 mmol/L 02/22/2024 12:16 PM [facility] CHLORIDE 102 98 - 107 mmol/L 02/22/2024 12:16 PM [facility] CO2,TOTAL 21(L) 22 - 29 mmol/L 02/22/2024 12:16 PM [facility] ANION GAP 16 5 - 18 02/22/2024 12:16 PM [facility] GLUCOSE 131(H) 70 - 99 mg/dL 02/22/2024 12:16 PM [facility] CALCIUM 9.4 8.8 - 10.2 mg/dL 02/22/2024 12:16 PM [facility] BUN 18 8 - 23 mg/dL 02/22/2024 12:16 PM [facility] CREATININE 1.17(H) 0.50 - 0.90 mg/dL 02/22/2024 12:16 PM [facility] BUN/CREAT RATIO 15 10 - 20 4 12:16 PM [facility] eGFR 53(L) >90 mL/min/1.7 3m2 02/22/2024 12:16 PM [facility] Comment:As of 2021, eG FR is calculated by the CKD-EPI creatinine equation without race adjustment. ??eGFR can be influenced by muscle mass, exercise, and diet. ??The reported eGFR is an estimation only and is only applicable if the renal function is stable. ALBUMIN 4.3 4.0 - 4.9 g/dL 02/22/2024 12:16 PM [facility] PROTEIN,TOTAL 7.3 6.0 - 8.0 g/dL 02/22/2024 12:16 PM [facility] BILIRUBIN,TOTAL 1.5(H) 0.0 - 1.2 mg/dL 02/22/2024 12:16 PM [facility] ALK PHOSPHATASE 234(H) 35 - 104 IU/L 02/22/2024 12:16 PM [facility] ALT (SGPT) 20 10 - 35 IU/L 02/22/2024 12:16 PM [facility] AST (SGOT) 41(H) 10 - 35 IU/L 02/22/2024 12:16 PM [facility] Blood BLOOD SPECIMEN / Unknown Venipuncture / Unknown 02/22/2024 11:25 AM CDT 02/22/2024 11:29 AM CDT [place] Meehan MD CHEMISTRY [facility] [address] [address] * EKG 12 LEAD (02/22/2024 11:11 AM [...] NOW QTc 412 ms BEYOND NOW P [place] degrees BEYOND NOW R [place] 115 degrees BEYOND NOW T [place] -133 degrees BEYOND NOW 02/22/2024 11:1 1 AM CDT 02/23/2024 1:39 PM CDT [place] Meehan MD EKG ORD BEYOND NOW [place], [place] * CRITICAL CARE PROVIDED (02/22/2024 11:07 [...] ORD from Last 3 Months Care Teams Heel Painter Relationship Specialty Start Date End Date Roshan Higginbotham CLERK SUPERVISOR [address] [place] [address] PCP - General 04/17/24
--- OUTSIDE RECORDS SUMMARY | 2024-05-12 14:17 | XMS_ITS | Referral Summary ---
Author Organization [facility] Address [address] [place] [address] Care Team Providers Care Supervisor Drawing Name Role Phone Asael Smith M.D. Primary Care Provider Source Comments Patient records contain information from all sites at [facility]. For routine questions regarding patient records, call [phone] during business hours, M-F 8:00 AM - 5:00 PM Central Time. Record requests for emergency care only can be directed to [phone] at any time.[facility] Encounters Date Type Department Care Team Description 05/05/2024 Orders Only [facility] SELF TEST ANTHONY [address] [place] [phone] Asael Smith M.D. Screening Cancer Colon 04/21/2024 Orders Only RST SELF TEST ANTHONY [address] [place] [phone] Asael Smith M.D. Screening Cancer Colon 02/22/2024 11:05 AM CDT - 02/22/2024 2:49 PM CDT Emergency [facility] [address] [place] [phone] Atrial Fibrillation Unspecified (HCC) (Primary Dx) Discharge [...] screening. Assessment & Plan (11/12/2022 4:47 PM TAKER OFF): Patient open to receiving a Cologuard. Declines low-dose lung cancer screening. Must schedule mammogram. Impaired Fasting Glucose 11/18/2018 Overview (12/04/2022): 2020: Normal fasting glucose November 2022: Fasting blood glucose of 114. Repeat in 1 years time. She has a history of intermittent elevated fasting blood glucoses, the highest of which was 121. Assessment & Plan (11/12/2022 4:39 PM TAKER OFF): Repeat fasting blood glucose. Dyslipidemia 11/18/2018 Overview (11/12/2022): Images from the original note were not included. February 2022: Elevated triglycerides. Lipids 02/15/2022 11:09 AM CHOLESTEROL 297 TRIGLYCERIDES 446 HDL 57 LDL CALC CANCELED Assessment & Plan (11/12/2022 4:46 PM TAKER OFF): No indication yet repeat lipid panel at this time. We will plan to repeat in approximately 4 years, as part of her drug monitoring therapy. 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 Diagnosis: Generalized anxiety disorder, bipolar disorder [...] Monitoring Frequency of visits: 6 month Overseeing aerodynamic consultant: Dr. Back and Consultants [facility] review/documentation:yes Urine drug screening requested?: no Urine screening frequency:other- not indicated 01/2024: Patient stated she is going to a doctor in [place] and does not wish to doctor in [place] because we are not going back to her current benzo dosing and regimen. Follow up as needed. Assessment & Plan (12/20/2023 12:32 PM CDT): Refer to anxiety generalized Disorder regarding clonazepam Assessment & Plan (04/15/2023 11:24 AM CDT): Please see assessment and plan for anxiety generalized disorder. Patient should be assessed by Psychiatry. Assessment & Plan (11/12/2022 4:45 PM TAKER OFF): Please refer to anxiety assessment and plan [...] years. Assessment & Plan (09/16/2020 11:10 AM TAKER OFF): - No changes to CSA. - 6 mo f/u Anxiety Generalized Disorder 01/14/2017 Overview (01/06/2024): Stable on: - Gabapentin 700 mg TID - Prozac 30 mg qd - Seroquel 300. - Klonopin 0.5 mg morning, 0.25 mg PRN 2-3 x a week. 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 Diagnosis: Generalized anxiety disorder, bipolar disorder [...] FURTHER REFILLS (last visit was 12/2023 Overseeing aerodynamic consultant: PCP/Consultants. [facility] review/documentation:yes Urine drug screening requested?: [...] Good social support system with friends and jain. No red flags. 07/2023: PSY recs - no clonazepam change for now, f/u in six weeks to discuss taper. 12/2023: reduced to 0.25 qAM, 0.25 qPM 2-3 times per week. 01/2024: Patient stated she is going to a doctor in [place] and does not wish to doctor in [place] because we are not going back to [...] time. Assessment & Plan (11/12/2022 4:43 PM TAKER OFF): Unfortunately, this is a difficult situation. The [...] instead. Assessment & Plan (11/12/2022 4:39 PM TAKER OFF): Patient has been offered enrollment in low-dose [...] clonazepam Assessment & Plan (11/12/2022 4:46 PM TAKER OFF): Please see psychiatry notes and the anxiety assessment and plan. Assessment & Plan (09/16/2020 11:10 AM TAKER OFF): - Continue current medications. - 6 mo CSA recheck. Hypertension Essential Primary 05/18/2014 Overview (04/15/2023): 03/23/21: BP elevated in setting of multiple emotional stressors, VOCATIONAL ADVISER return visit ordered in 1 month. 2021: [...] recheck. Assessment & Plan (11/12/2022 4:39 PM TAKER OFF): Plan to increase amlodipine to 7.5 mg daily. Plan to not change losartan. Not due for any BMP monitoring. Immunizations Name Administration Dates Next Due PCV20 02/15/2022 PPSV23 08/12/2014 RZV (SHINGRIX) 11/12/2022,,02/15/2022(Deferre d: Patient decision - needs to check insurance) SARS-COV-2 (COVID-19) - MODE RNA (12 YEARS AND OLDER) [id number] 12/20/2023(Deferred: Patient decision) SARS-COV-2 (COVID-19) - PFIZ [...] drink = 0.6 oz pur e alcohol) [facility] Utilities Answer Date Recorded In the past 12 months has e [employer], oil, or water [employer] threatened to shut off services in your [...] How often do you attend chur or quaker services? 1 to 4 times per year 02/15/2022 Do you belong to any clubs o r organizations such as jain groups, unions, fraternal or athletic groups, or [...] Answer Date Recorded PHQ-2 Score 0 12/20/2023 [facility] - Occupational [...] (ABNORMAL) Lipid Panel (02/15/2022 11:09 AM CDT) [facility] Cholesterol, Total 297(H) mg/dL 2021 3:37 [...] Oliveira, B.Ch., B.A.O. L AB BLOOD ADD-ON [facility] [address] [place] [address], [facility] [address] [place] [address] from Last 3 Months or Most Recently Relevant to Health Maintenance Care Teams Supervisor Drawing Relationship Specialty Start Date End Date Asael Smith M.D. [address] [place] [phone] PCP - General 04/06/24
--- OUTSIDE RECORDS SUMMARY | 2024-05-12 14:18 | XMS_ITS | Encounter Summary ---
Author Organization [facility] Address [address] [place] [address] Care Team Providers Care Online Activist Name Role Phone Branden Back, B.Ch., B.A.O. Primary Care Provider Unavailable Reason for Visit * Reason Onset Date Comments Med Question 01/03/2024 Encounter Details Date Type Department Care Team (Late st Contact Info) Description 01/03/2024 Clinical Communication Department of Family Medicine, [place], [place] [address] [place] [phone] Branden Back M.B., B.Ch., B.A.O. Med Question Social History Tobacco Use Types Packs/Day Years Used Date Smoking Tobacco: Every Day Cigarettes 1 48.8 Started: 08/08/1975 Passive Smoke Exposure: Current Smokeless Tobacco: Never Alcohol Use Standard Drinks/Week Comments Never 0 (1 standard drink = 0.6 oz pur e alcohol) [facility] Utilities Answer Date Recorded In the past 12 months has [facility] [employer] gas, oil, or water [employer] threatened to shut off services in your [...] How often do you attend chur or catholic services? 1 to 4 times per year 02/15/2022 Do you belong to any clubs o r organizations such as methodist groups, unions, fraternal or athletic groups, or [...] Answer Date Recorded PHQ-2 Score 0 12/20/2023 [facility] Occupat ional Health - Occupational [...] your living situation today? I have a [facility] place to live 12/20/2023 Education Answer [...] I'm tired of it. My doctor in [place] knew what was going on and didn't [...] going to go to a doctor in [place]. I'm going to hang up. 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 PLAN Disposition/Recommendation: notified provider and awaiting [...] documented as of this encounter Care Teams Online Activist Relationship Specialty Start Date End Date Branden Back M.B., B.Ch., B.A.O. PCP - General 04/06/21 04/05/24 documented as of this encounter
== END 2024-05-11 09:20 | disposition home or self-care (01) ==
LOC: NFLDREF 05-12 14:15
PROVIDERS: PCP Nurse Practitioner Family; Referring Provider Nurse Practitioner Family; Visit Provider Nurse Practitioner Family
DX: I48.91 Unspecified atrial fibrillation (principal); Z79.01 Long term (current) use of anticoagulants
CPT/HCPCS: 85610

== ENCOUNTER 2024-05-21 12:01 | Outpatient (CLI) | payer SELFPAY ==
--- OUTSIDE RECORDS SUMMARY | 2024-05-21 12:05 | XMS_ITS | Clinical Summary ---
Author Organization [facility] Address [place], [place] [address] Care Team Providers Care Circuit Breaker Mechanic Name Role Phone Roshan Higginbotham NP Primary Care Provider [phone] Allergies Active Allergy Reactions Criticality Noted Date [...] Type Department Care Team Description 04/20/[address] [address] Aydin Washington MD Medication Management 04/16/2024 Telephone [facility] [address] [facility] [address] [place] [address] Aydin Washington MD Questions 03/26/2024 10:30 AM CDT Office Visit [facility] [address] [place] [address] Aydin Washington MD 03/13/2024 9:00 AM CDT Ancillary Procedure [facility] [address] [place] [address] 03/13/2024 Orders Only [facility] [address] [place] [address] Judy Mcknight 1 scan: (1-Ord) Final 03/04/2024 Telephone [facility] [address] [place] [address] Nic Romero MD Atrial Fibrillation 02/27/2024 Travel 02/22/2024 11:10 AM CDT - 02/22/2024 2:49 PM CDT Emergency [facility] [address] [place] [address] Irving Meehan MD Atrial fibrillation with rapid [...] Results * EXTENDED HOLTER (03/16/2024) Roshan Higginbotham [employer] [address] * ECHO TTE COMPLETE WO CONTRAST (03/13/2024 9:57 AM CDT) AORTIC VALVE MEAN PG 6 mmHg PEAK TR VELOCITY 2.2 m/s LVEDD 5.2 cm EJECTION FRACTION 35 - 40% Anatomical Region Laterality Modality Ultrasound 03/13/2024 9:26 AM CDT Narrative 03/13/2024 10:26 AM CDT ECHOCARDIOGRAM AIRAM YOUNG ? Accession#: ?? [id number] : ?1960 63 years Study Date: ?? 03/13/2024 9:26:06 AM Gender: F ?BP: ? 128/75 mmHg Height: 165.00 cm ?BSA: ?1.88 m? ? ? Weight: 81.00 kg ? Tech: ? MBF ? Referring MD: ROSHAN HIGGINBOTHAM Site: ? [facility] [place] Location: Mobile OP Patient Location: [...] . This study was interpreted by an [facility] accredited facility. CC: HIM (med records) [facility]. ??Final ?? Procedure Note Jose Antonio Noriega MD - 03/13/2024 ECHOCARDIOGRAM AIRAM YOUNG : 1960 63 years Study Date: 03/13/2024 9:26:06 AM Gender: F BP: 128/75 mmHg Height: 165.00 cm BSA: 1.88 m? ? ? Weight: 81.00 kg Tech: [facility] Referring MD: ROSHAN HIGGINBOTHAM Site: [facility] [place] Location: Mobile OP [...] . This study was interpreted by an [facility] accredited facility. CC: MARK (med records) [facility]. Final Roshan Higginbotham NP ECHO ORD * (ABNORMAL) TROPONIN T (HS) ONE TIME (02/22/2024 1:27 PM CDT) TROPONIN T HS 13(H) 6-10 ng/L ng/L 02/22/2024 1:[address] [facility] Blood BLOOD SPECIMEN / Unknown Venipuncture / Unknown 02/22/2024 1:27 PM CDT 02/22/2024 1:28 PM CDT Irving Meehan MD CHEMISTRY Performing Organization Address [facility] Co de Phone Number [address] [phone] * (ABNORMAL) PROTIME-INR (02/22/2024 11:26 AM CDT) INR 1.7(H) <1.3 02/22/2024 11:[address] [facility] PROTIME 19.1(H) 10.3 - 12.3 sec 02/22/2024 11:[address] [facility] Blood BLOOD SPECIMEN / Unknown Venipuncture / Unknown 02/22/2024 11:26 AM CDT 02/22/2024 11:29 AM CDT [facility] - 02/22/2024 11:38 AM CDT ?Therapeutic Range [...] Irving Meehan MD HEMATOLOGY Performing Organization Address City/[facility] Co de Phone Number [address] [phone] * (ABNORMAL) TROPONIN T (HS) ACUTE W/2HR REFLEX (02/22/2024 11:25 AM CDT) TROPONIN T HS 14(H) 6-10 ng/L ng/L 02/22/2024 12:[address] [facility] Blood BLOOD SPECIMEN / Unknown Venipuncture / Unknown 02/22/2024 11:25 AM CDT 02/22/2024 11:29 AM CDT [facility] - 02/22/2024 12:16 PM CDT hs-cTnT ([employer] [...] department patient population. Irving Meehan MD CHEMISTRY [facility] [address] [address] * (ABNORMAL) CBC WITH AUTO DIFFERENTIAL (02/22/2024 11:25 AM CDT) WHITE BLOOD COUNT 7.0 4.5 - 11.0 thou/cu mm 02/22/2024 11:57 AM [facility] RED BLOOD COUNT 4.01 4.00 - 5.20 mil/cu mm 02/22/2024 11:57 AM [facility] HEMOGLOBIN 14.1 12.0 - 16.0 g/dL 02/22/2024 11:57 AM [facility] HEMATOCRIT 42.3 33.0 - 51.0 % 02/22/2024 11:57 AM [facility] MCV 106(H) 80 - 100 fL 02/22/2024 11:57 AM [facility] MCH 35.2(H) 26.0 - 34.0 pg 02/22/2024 11:57 AM [facility] MCHC 33.3 32.0 - 36.0 g/dL 02/22/2024 11:57 AM [facility] RDW 14.3 11.5 - 15.5 % 02/22/2024 11:57 AM [facility] PLATELET COUNT 198 140 - 440 thou/cu mm 02/22/2024 11:57 AM [facility] MPV 10.7 6.5 - 11.0 fL 02/22/2024 11:57 AM [facility] Blood BLOOD SPECIMEN / Unknown Venipuncture / Unknown 02/22/2024 11:25 AM CDT 02/22/2024 11:29 AM CDT Irving Meehan MD HEMATOLOGY [facility] [address] [phone] * (ABNORMAL) RED CELL MORPHOLOGY (02/22/2024 11:25 AM CDT) POLYCHROMASIA Slight 02/22/2024 11:57 AM [facility] RBC COMMENT Present(A) RBC morphology appears normal, RBC morphology within normal limits for newborns. 02/22/2024 11:57 AM [facility] Blood BLOOD SPECIMEN / Unknown Venipuncture / Unknown 02/22/2024 11:25 AM CDT 02/22/2024 11:29 AM CDT Irving Meehan MD HEMATOLOGY Performing Organization Address [facility] Co de Phone Number [address] [phone] * PLATELET ESTIMATE (02/22/2024 11:25 AM CDT) PLATELET ESTIMATE Adequate Adequate, No estimate 02/22/2024 11:57 AM [facility] Blood BLOOD SPECIMEN / Unknown Venipuncture / Unknown 02/22/2024 11:25 AM CDT 02/22/2024 11:29 AM CDT Irving Meehan MD HEMATOLOGY Performing Organization Address [facility]/[employer] de Phone Number [address] [phone] * MANUAL DIFFERENTIAL (02/22/2024 11:25 AM CDT) % NEUTROPHILS 75.0 % 02/22/2024 11:57 AM [facility] % LYMPHOCYTES 18.0 % 02/22/2024 11:57 AM [facility] % MONOCYTES 7.0 % 02/22/2024 11:57 AM [facility] % EOSINOPHILS 0.0 % 02/22/2024 11:57 AM [facility] % BASOPHILS 0.0 % 02/22/2024 11:57 AM [facility] NEUTROPHILS ABSOLUTE 5.3 1.7 - 7.0 thou/cu mm 02/22/2024 11:57 AM [facility] LYMPHOCYTES ABSOLUTE 1.3 0.9 - 2.9 thou/cu mm 02/22/2024 11:57 AM [facility] MONOCYTES ABSOLUTE 0.5 <0.9 thou/cu mm 02/22/2024 11:57 AM [facility] EOSINOPHILS ABSOLUTE 0.0 <0.5 thou/cu mm 02/22/2024 11:[address] [facility] BASOPHILS ABSOLUTE 0.0 <0.3 thou/cu mm 02/22/2024 11:[address] [facility] Blood BLOOD SPECIMEN / Unknown Venipuncture / Unknown 02/22/2024 11:25 AM CDT 02/22/2024 11:29 AM CDT Irving Meehan MD HEMATOLOGY Performing Organization Address [facility] de Phone Number [address] [phone] * TSH (02/22/2024 11:25 AM CDT) TSH 1.14 0.27 - 4.20 uIU/mL 02/22/2024 12:[address] [facility] Blood BLOOD SPECIMEN / Unknown Venipuncture / Unknown 02/22/2024 11:25 AM CDT 02/22/2024 11:[address] [facility] - 02/22/2024 12:16 PM CDT In Adults, TSH values between 5.00 and 10.00 uIU/ml do not necessarily indicate the presence of Hypothyroidism. Correlation with clinical findings such as presence of goiter and/or Thyroperoxidase (TPO) Antibody may be helpful. For more information please refer to ROSY 2004; 291: 228-238. Irving Meehan MD CHEMISTRY Performing Organization Address [facility] Co de Phone Number [address] [phone] * MAGNESIUM (02/22/2024 11:25 AM CDT) MAGNESIUM 1.7 1.6 - 2.4 mg/dL 02/22/2024 12:[address] [facility] Blood BLOOD SPECIMEN / Unknown Venipuncture / Unknown 02/22/2024 11:25 AM CDT 02/22/2024 11:29 AM CDT Irving Meehan MD CHEMISTRY Performing Organization Address City/[facility]/ZIP Co de Phone Number [address] [phone] * LIPASE (02/22/2024 11:25 AM CDT) LIPASE 13.1 13.0 - 60.0 IU/L 02/22/2024 12:16 PM [facility] Blood BLOOD SPECIMEN / Unknown Venipuncture / Unknown 02/22/2024 11:25 AM CDT 02/22/2024 11:29 AM CDT Irving Meehan MD CHEMISTRY Performing Organization Address [facility] Co de Phone Number [address] [phone] * (ABNORMAL) COMP METABOLIC PANEL (02/22/2024 11:25 AM CDT) SODIUM 139 136 - 145 mmol/L 02/22/2024 12:16 PM [facility] POTASSIUM 4.4 3.5 - 5.1 mmol/L 02/22/2024 12:16 PM [facility] CHLORIDE 102 98 - 107 mmol/L 02/22/2024 12:16 PM [facility] CO2,TOTAL 21(L) 22 - 29 mmol/L 02/22/2024 12:16 PM [facility] ANION GAP 16 5 - 18 02/22/2024 12:16 PM [facility] GLUCOSE 131(H) 70 - 99 mg/dL 02/22/2024 12:16 PM [facility] CALCIUM 9.4 8.8 - 10.2 mg/dL 02/22/2024 12:16 PM [facility] BUN 18 8 - 23 mg/dL 02/22/2024 12:16 PM [facility] CREATININE 1.17(H) 0.50 - 0.90 mg/dL 02/22/2024 12:16 PM [facility] BUN/CREAT RATIO 15 10 - 20 4 12:16 PM [facility] eGFR 53(L) >90 mL/min/1.7 3m2 02/22/2024 12:16 PM [facility] Comment:As of 2021, eG FR is calculated by the CKD-EPI creatinine equation without race adjustment. ??eGFR can be influenced by muscle mass, exercise, and diet. ??The reported eGFR is an estimation only and is only applicable if the renal function is stable. ALBUMIN 4.3 4.0 - 4.9 g/dL 02/22/2024 12:16 PM [facility] PROTEIN,TOTAL 7.3 6.0 - 8.0 g/dL 02/22/2024 12:16 PM [facility] BILIRUBIN,TOTAL 1.5(H) 0.0 - 1.2 mg/dL 02/22/2024 12:16 PM [facility] ALK PHOSPHATASE 234(H) 35 - 104 IU/L 02/22/2024 12:16 PM [facility] ALT (SGPT) 20 10 - 35 IU/L 02/22/2024 12:16 PM [facility] AST (SGOT) 41(H) 10 - 35 IU/L 02/22/2024 12:16 PM [facility] Blood BLOOD SPECIMEN / Unknown Venipuncture / Unknown 02/22/2024 11:25 AM CDT 02/22/2024 11:29 AM CDT Irving Meehan MD CHEMISTRY [facility] [address] [phone] * EKG 12 LEAD (02/22/2024 11:11 AM [...] NOW QTc 412 ms BEYOND NOW P [place] degrees BEYOND NOW R [place] 115 degrees BEYOND NOW T [place] -133 degrees BEYOND NOW 02/22/2024 11:1 1 AM CDT 02/23/2024 1:39 PM CDT Irving Meehan MD EKG ORD BEYOND NOW [place], [place] * CRITICAL CARE PROVIDED (02/22/2024 11:07 [...] ORD from Last 3 Months Care Teams Circuit Breaker Mechanic Relationship Specialty Start Date End Date Roshan Higginbotham [employer] HRMS DEVELOPER [address] [place] [address] PCP - General 04/17/24
--- OUTSIDE RECORDS SUMMARY | 2024-05-21 12:06 | XMS_ITS ---
Author Organization [facility] Address [address] [place] [address] Care Team Providers Care Bank Vault Attendant Name Role Phone Unavailable Unavailable Unavailable Surgery Details Not on file Complications Check Surgery Details section. Procedure Estimated Blood Loss Check Surgery Details section. Procedure Findings Check Surgery Details section. Procedure Specimens Taken Check Surgery Details section.
--- OUTSIDE RECORDS SUMMARY | 2024-05-21 12:06 | XMS_ITS | Encounter Summary ---
Author Organization [facility] Address [address] [place] [address] Care Team Providers Care Drainman Name Role Phone Branden Back, B.Lore., B.A.O. Primary Care Provider Unavailable Reason for Visit * Reason Comments Vomiting Encounter Details Date Type Department Care Team (Late st Contact Info) Description 02/22/2024 11:05 AM CDT - 02/22/2024 2:49 PM CDT Emergency [facility] [address], [place] [address] Atrial Fibrillation Unspecified (HCC) (Primary Dx) Discharge Disposition: Home or Self Care Social History Tobacco Use Types Packs/Day Years Used Date Smoking Tobacco: Every Day Cigarettes 1 48.8 Started: 08/08/1975 Passive Smoke Exposure: Current Smokeless Tobacco: Never Alcohol Use Standard Drinks/Week Comments Never 0 (1 standard drink = 0.6 oz pur e alcohol) [facility] Utilities Answer Date Recorded In the past 12 months has e [employer], gas, oil, or water [employer] threatened to shut off services in your [...] week 02/15/2022 How often do you attend [facility] or restoration services? 1 to 4 times per year 02/15/2022 Do you belong to any clubs o r organizations such as shinto groups, unions, fraternal or athletic groups, or [...] Recorded PHQ-2 Score 0 12/20/2023 [facility] Occupat ional Health - Occupational Stress [...] your living situation today? I [facility] a [facility] 12/20/2023 Education Answer [...] documented as of this encounter Care Teams Drainman Relationship Specialty Start Date End Date Branden Back M.B., B.Ch., B.A.O. PCP - General 04/06/21 04/05/24 documented as of this encounter
--- OUTSIDE RECORDS SUMMARY | 2024-05-21 12:06 | XMS_ITS | Clinical Summary ---
Author Organization [facility] Address [address] [place] [address] Care Team Providers Care Stitcher Set Up Operator Automatic Name Role Phone Asael Smith M.D. Primary Care Provider Source Comments Patient records contain information from all sites at [facility]. For routine questions regarding patient records, call [phone] during business hours, M-F 8:00 AM - 5:00 PM Central Time. Record requests for emergency care only can be directed to [phone] at any time.[facility] Allergies Active Allergy Reactions Criticality Noted [...] screening. Assessment & Plan (11/12/2022 4:47 PM SERVICE AIDE): Patient open to receiving a Cologuard. Declines low-dose lung cancer screening. Must schedule mammogram. Impaired Fasting Glucose 11/18/2018 Overview (12/04/2022): 2020: Normal fasting glucose November 2022: Fasting blood glucose of 114. Repeat in 1 years time. She has a history of intermittent elevated fasting blood glucoses, the highest of which was 121. Assessment & Plan (11/12/2022 4:39 PM SERVICE AIDE): Repeat fasting blood glucose. Dyslipidemia 11/18/2018 Overview (11/12/2022): Images from the original note were not included. February 2022: Elevated triglycerides. Lipids 02/15/2022 11:09 AM CHOLESTEROL 297 TRIGLYCERIDES 446 HDL 57 LDL CALC CANCELED Assessment & Plan (11/12/2022 4:46 PM SERVICE AIDE): No indication yet repeat lipid panel at this time. We will plan to repeat in approximately 4 years, as part of her drug monitoring therapy. Monitoring For Therapeutic Drug Therapy 05/15/20 18 Overview (01/06/2024): Controlled Substance Prescribing Plan: Stimulants and Benzodiazepines This patient is expected to be on controlled substances chcf. Diagnosis: Generalized anxiety disorder, bipolar disorder Previous [...] Monitoring Frequency of visits: 6 month Overseeing senior financial consultant: Dr. Back and Consultants [facility] review/documentation:yes Urine drug screening requested?: no Urine screening frequency:other- not indicated 01/2024: Patient stated she is going to a doctor in [place] and does not wish to doctor in [place] because we are not going back to her current benzo dosing and regimen. Follow up as needed. Assessment & Plan (12/20/2023 12:32 PM CDT): Refer to anxiety generalized Disorder regarding clonazepam Assessment & Plan (04/15/2023 11:24 AM CDT): Please see assessment and plan for anxiety generalized disorder. Patient should be assessed by Psychiatry. Assessment & Plan (11/12/2022 4:45 PM SERVICE AIDE): Please refer to anxiety assessment and plan [...] years. Assessment & Plan (09/16/2020 11:10 AM SERVICE AIDE): - No changes to CSA. - 6 mo f/u Anxiety Generalized Disorder 01/14/2017 Overview (01/06/2024): Stable on: - Gabapentin 700 mg TID - Prozac 30 mg qd - Seroquel 300. - Klonopin 0.5 mg morning, 0.25 mg PRN 2-3 x a week. 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 Diagnosis: Generalized anxiety disorder, bipolar disorder Previous [...] FURTHER REFILLS (last visit was 12/2023 Overseeing senior financial consultant: [facility] Urine drug screening requested?: no [...] she is going to a doctor in [place] and does not wish to doctor in [place] because we are not going back to [...] time. Assessment & Plan (11/12/2022 4:43 PM SERVICE AIDE): Unfortunately, this is a difficult situation. The [...] instead. Assessment & Plan (11/12/2022 4:39 PM SERVICE AIDE): Patient has been offered enrollment in low-dose [...] clonazepam Assessment & Plan (11/12/2022 4:46 PM SERVICE AIDE): Please see psychiatry notes and the anxiety assessment and plan. Assessment & Plan (09/16/2020 11:10 AM SERVICE AIDE): - Continue current medications. - 6 mo CSA recheck. Hypertension Essential Primary 05/18/2014 Overview (04/15/2023): 03/23/21: BP elevated in setting of multiple emotional stressors, [facility] return visit ordered in 1 month. 2021: [...] recheck. Assessment & Plan (11/12/2022 4:39 PM SERVICE AIDE): Plan to increase amlodipine to 7.5 mg daily. Plan to not change losartan. Not due for any BMP monitoring. Encounters Date Type Department Care Team Description 05/05/2024 Orders Only [facility] [address] [place] [phone] Asael Smith M.D. Screening Cancer Colon 04/21/2024 Orders Only [facility] [address] [place] [phone] Asael Smith M.D. Screening Cancer Colon 02/22/2024 11:05 AM CDT - 02/22/2024 2:49 PM CDT Emergency [facility] [address] [place] [address] Atrial Fibrillation Unspecified (HCC) (Primary Dx) Discharge Disposition: Home or Self Care from Last 3 Months Immunizations Name Administration Dates Next Due PCV20 02/15/2022 PPSV23 08/12/2014 RZV (SHINGRIX) 11/12/2022,,02/15/2022(Deferre d: Patient decision - needs to check insurance) SARS-COV-2 (COVID-19) - MODE RNA (12 YEARS AND OLDER) [id number] 12/20/2023(Deferred: Patient decision) SARS-COV-2 (COVID-19) - PFIZ [...] drink = 0.6 oz pur e alcohol) [facility] Utilities Answer Date Recorded In the past 12 months has e [employer], gas, oil, or water [employer] threatened to shut off services in your [...] often do you attend chur ch or evangelical services? 1 to 4 times per year [...] Answer Date Recorded PHQ-2 Score 0 12/20/2023 [facility] Occupat ional Health - [...] your living situation today? I have a [facility] place to live 12/20/2023 Education Answer [...] (ABNORMAL) Lipid Panel (02/15/2022 11:09 AM CDT) [facility] Cholesterol, Total 297(H) mg/dL 2021 3:37 PM [...] Oliveira, B.Ch., B.A.O. L AB BLOOD ADD-ON [facility] [address] [place] [address], [facility] DTL [facility] [address] [place] [address] from Last 3 Months or Most Recently Relevant to Health Maintenance Care Teams Stitcher Set Up Operator Automatic Relationship Specialty Start Date End Date Asael Smith M.D. NPElena: [phone] [address] [place] [address] PCP - General 04/06/24
--- OUTSIDE RECORDS SUMMARY | 2024-05-21 12:06 | XMS_ITS | Encounter Summary ---
Author Organization [facility] Address [address] [place] [address] Care Team Providers Care Senior Genetic Counselor Name Role Phone Asael Smith M.D. Primary Care Provider Encounter Details Date Type Department Care Team (Late st Contact Info) Description 05/05/2024 Orders Only [facility] [address] [place] [address] Asael Smith M.D. [address] [place] [address] Screening Cancer Colon Social History Tobacco Use Types Packs/Day Years Used Date Smoking Tobacco: Every Day Cigarettes 1 48.8 Started: 08/08/1975 Passive Smoke Exposure: Current Smokeless Tobacco: Never Alcohol Use Standard Drinks/Week Comments Never 0 (1 standard drink = 0.6 oz pur e alcohol) [facility] Utilities Answer Date Recorded In the past 12 months has [facility] [employer], gas, oil, or water [employer] threatened to shut off services in your [...] How often do you attend chur or muslim services? 1 to 4 times per year 02/15/2022 Do you belong to any clubs o r organizations such as adventism groups, unions, fraternal or athletic groups, or [...] Answer Date Recorded PHQ-2 Score 0 12/20/2023 [facility] of Occupat ional Health - Occupational Stress [...] your living situation today? I have a [facility] place to live 12/20/2023 Education Answer [...] documented as of this encounter Care Teams Senior Genetic Counselor Relationship Specialty Start Date End Date Asael Smith M.D. [address] [place] [address] PCP - General 04/06/24 documented as of this encounter
--- OUTSIDE RECORDS SUMMARY | 2024-05-21 12:06 | XMS_ITS | Referral Summary ---
Author Organization [facility] Address [address] [place] [address] Care Team Providers Care Soft Work Wrapper Examiner Name Role Phone Asael Smith M.D. Primary Care Provider Source Comments Patient records contain information from all sites at [facility]. For routine questions regarding patient records, call [phone] during business hours, M-F 8:00 AM - 5:00 PM Central Time. Record requests for emergency care only can be directed to [phone] at any time.[facility] Encounters Date Type Department Care Team Description 05/05/2024 Orders Only [facility] [address] [place] [phone] Asael Smith M.D. Screening Cancer Colon 04/21/2024 Orders Only [facility] [address] [place] [phone] Asael Smith M.D. Screening Cancer Colon 02/22/2024 11:05 AM CDT - 02/22/2024 2:49 PM CDT Emergency [facility] [address] [place] [phone] Atrial Fibrillation Unspecified (HCC) (Primary Dx) Discharge [...] screening. Assessment & Plan (11/12/2022 4:47 PM QUALITY CONTROL EXPERT): Patient open to receiving a Cologuard. Declines low-dose lung cancer screening. Must schedule mammogram. Impaired Fasting Glucose 11/18/2018 Overview (12/04/2022): 2020: Normal fasting glucose November 2022: Fasting blood glucose of 114. Repeat in 1 years time. She has a history of intermittent elevated fasting blood glucoses, the highest of which was 121. Assessment & Plan (11/12/2022 4:39 PM QUALITY CONTROL EXPERT): Repeat fasting blood glucose. Dyslipidemia 11/18/2018 Overview (11/12/2022): Images from the original note were not included. February 2022: Elevated triglycerides. Lipids 02/15/2022 11:09 AM CHOLESTEROL 297 TRIGLYCERIDES 446 HDL 57 LDL CALC CANCELED Assessment & Plan (11/12/2022 4:46 PM QUALITY CONTROL EXPERT): No indication yet repeat lipid panel at this time. We will plan to repeat in approximately 4 years, as part of her drug monitoring therapy. Monitoring For Therapeutic Drug Therapy 05/15/20 18 Overview (01/06/2024): Controlled Substance Prescribing Plan: Stimulants and Benzodiazepines This patient is expected to be on controlled substances retirement. Diagnosis: Generalized anxiety disorder, bipolar disorder Previous [...] Monitoring Frequency of visits: 6 month Overseeing framing consultant: Dr. Back and Consultants [facility] review/documentation:yes Urine drug screening requested?: no Urine screening frequency:other- not indicated 01/2024: Patient stated she is going to a doctor in [place] and does not wish to doctor in [place] because we are not going back to her current benzo dosing and regimen. Follow up as needed. Assessment & Plan (12/20/2023 12:32 PM CDT): Refer to anxiety generalized Disorder regarding clonazepam Assessment & Plan (04/15/2023 11:24 AM CDT): Please see assessment and plan for anxiety generalized disorder. Patient should be assessed by Psychiatry. Assessment & Plan (11/12/2022 4:45 PM QUALITY CONTROL EXPERT): Please refer to anxiety assessment and plan [...] years. Assessment & Plan (09/16/2020 11:10 AM QUALITY CONTROL EXPERT): - No changes to CSA. - 6 mo f/u Anxiety Generalized Disorder 01/14/2017 Overview (01/06/2024): Stable on: - Gabapentin 700 mg TID - Prozac 30 mg qd - Seroquel 300. - Klonopin 0.5 mg morning, 0.25 mg PRN 2-3 x a week. 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 Diagnosis: Generalized anxiety disorder, bipolar disorder Previous [...] FURTHER REFILLS (last visit was 12/2023 Overseeing framing consultant: PCP/Consultants. [facility] review/documentation:yes Urine drug screening [...] Good social support system with friends and protestant. No red flags. 07/2023: PSY recs - no clonazepam change for now, f/u in six weeks to discuss taper. 12/2023: reduced to 0.25 qAM, 0.25 qPM 2-3 times per week. 01/2024: Patient stated she is going to a doctor in [place] and does not wish to doctor in [place] because we are not going back to [...] time. Assessment & Plan (11/12/2022 4:43 PM QUALITY CONTROL EXPERT): Unfortunately, this is a difficult situation. The [...] instead. Assessment & Plan (11/12/2022 4:39 PM QUALITY CONTROL EXPERT): Patient has been offered enrollment in low-dose [...] clonazepam Assessment & Plan (11/12/2022 4:46 PM QUALITY CONTROL EXPERT): Please see psychiatry notes and the anxiety assessment and plan. Assessment & Plan (09/16/2020 11:10 AM QUALITY CONTROL EXPERT): - Continue current medications. - 6 mo CSA recheck. 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 2021: [...] recheck. Assessment & Plan (11/12/2022 4:39 PM QUALITY CONTROL EXPERT): Plan to increase amlodipine to 7.5 mg daily. Plan to not change losartan. Not due for any BMP monitoring. Immunizations Name Administration Dates Next Due PCV20 02/15/2022 PPSV23 08/12/2014 RZV (SHINGRIX) 11/12/2022,,02/15/2022(Deferre d: Patient decision - needs to check insurance) SARS-COV-2 (COVID-19) - MODE RNA (12 YEARS AND OLDER) [id number] 12/20/2023(Deferred: Patient decision) SARS-COV-2 (COVID-19) - PFIZ [...] drink = 0.6 oz pur e alcohol) [facility] Utilities Answer Date Recorded In the past 12 months has e [employer], oil, or water [employer] threatened to shut off services in your [...] How often do you attend chur or church services? 1 to 4 times per year 02/15/2022 Do you belong to any clubs o r organizations such as protestant groups, unions, fraternal or athletic groups, or [...] (ABNORMAL) Lipid Panel (02/15/2022 11:09 AM CDT) [facility] Cholesterol, Total 297(H) mg/dL 2021 3:37 [...] Oliveira, B.Ch., B.A.O. L AB BLOOD ADD-ON [facility] [address] [place] [address], [facility] [address] [place] [address] from Last 3 Months or Most Recently Relevant to Health Maintenance Care Teams Soft Work Wrapper Examiner Relationship Specialty Start Date End Date Asael Smith M.D. [address] [place] [phone] PCP - General 04/06/24
--- OUTSIDE RECORDS SUMMARY | 2024-05-21 12:06 | XMS_ITS | Encounter Summary ---
Author Organization [facility] Address [address] [place] [address] Care Team Providers Care Sodium Chlorite Operator Name Role Phone Asael Smith M.D. Primary Care Provider Encounter Details Date Type Department Care Team (Late st Contact Info) Description 04/21/2024 Orders Only [facility] TEST [facility] [address] [place] [address] Asael Smith M.D. [address] [place] [address] Screening Cancer Colon Social History Tobacco Use Types Packs/Day Years Used Date Smoking Tobacco: Every Day Cigarettes 1 48.8 Started: 08/08/1975 Passive Smoke Exposure: Current Smokeless Tobacco: Never Alcohol Use Standard Drinks/Week Comments Never 0 (1 standard drink = 0.6 oz pur e alcohol) [facility] Utilities Answer Date Recorded In the past 12 months has [facility] [employer], gas, oil, or water [employer] threatened to shut off services in your [...] How often do you attend chur or advent services? 1 to 4 times per year 02/15/2022 Do you belong to any clubs o r organizations such as anabaptism groups, unions, fraternal or athletic groups, or [...] Answer Date Recorded PHQ-2 Score 0 12/20/2023 [facility] of Occupat ional Health - Occupational [...] your living situation today? I have a [facility] place to live 12/20/2023 Education [...] documented as of this encounter Care Teams Sodium Chlorite Operator Relationship Specialty Start Date End Date Asael Smith M.D. NPElena: [phone] [address] [place] [address] PCP - General 04/06/24 documented as of this encounter
== END 2024-05-21 12:02 | disposition home or self-care (01) ==
PROVIDERS: PCP Nurse Practitioner Family; Visit Provider Nurse Practitioner Family
DX: Z51.81 Encounter for therapeutic drug level monitoring (principal)
CPT/HCPCS: 80053; 80162; 82607; 84443; 85025

== ENCOUNTER 2024-05-25 14:50 | Outpatient (CLI) | payer OTHER, SELFPAY ==
[2024-05-25 22:17] LABS: Digoxin* 1.9 ng/mL (0.8-2.0)
== END 2024-05-25 14:51 | disposition home or self-care (01) ==
PROVIDERS: PCP Nurse Practitioner Family; Visit Provider Nurse Practitioner Family
DX: Z51.81 Encounter for therapeutic drug level monitoring (principal)
CPT/HCPCS: 80162

== ENCOUNTER 2024-06-02 10:24 | Outpatient (CLI) | payer OTHER, SELFPAY ==
--- OUTSIDE RECORDS SUMMARY | 2024-06-05 12:18 | XMS_ITS | Clinical Summary ---
Author Organization [facility] Address [address] [place] [address] Care Team Providers Care Machine Plate Stacker Name Role Phone Asael Smith M.D. Primary Care Provider Source Comments Patient records contain information from all sites at [facility]. For routine questions regarding patient records, call [phone] during business hours, M-F 8:00 AM - 5:00 PM Central Time. Record requests for emergency care only can be directed to [phone] at any time.[facility] Allergies Active Allergy Reactions Criticality Noted Date [...] screening. Assessment & Plan (11/12/2022 4:47 PM LANDSCAPE AND YARDWORK LABORER): Patient open to receiving a Cologuard. Declines low-dose lung cancer screening. Must schedule mammogram. Impaired Fasting Glucose 11/18/2018 Overview (12/04/2022): 2020: Normal fasting glucose November 2022: Fasting blood glucose of 114. Repeat in 1 years time. She has a history of intermittent elevated fasting blood glucoses, the highest of which was 121. Assessment & Plan (11/12/2022 4:39 PM LANDSCAPE AND YARDWORK LABORER): Repeat fasting blood glucose. Dyslipidemia 11/18/2018 Overview (11/12/2022): Images from the original note were not included. February 2022: Elevated triglycerides. Lipids 02/15/2022 11:09 AM CHOLESTEROL 297 TRIGLYCERIDES 446 HDL 57 LDL CALC CANCELED Assessment & Plan (11/12/2022 4:46 PM LANDSCAPE AND YARDWORK LABORER): No indication yet repeat lipid panel at this time. We will plan to repeat in approximately 4 years, as part of her drug monitoring therapy. Monitoring For Therapeutic Drug Therapy 05/15/20 18 Overview (01/06/2024): Controlled Substance Prescribing Plan: Stimulants and Benzodiazepines This patient is expected to be on controlled substances skilled nursing. Diagnosis: Generalized anxiety disorder, bipolar disorder Previous [...] Monitoring Frequency of visits: 6 month Overseeing treasury consultant: Dr. Back and Consultants [facility] review/documentation:yes Urine drug screening requested?: no Urine screening frequency:other- not indicated 01/2024: Patient stated she is going to a doctor in [place] and does not wish to doctor in [place] because we are not going back to her current benzo dosing and regimen. Follow up as needed. Assessment & Plan (12/20/2023 12:32 PM CDT): Refer to anxiety generalized Disorder regarding clonazepam Assessment & Plan (04/15/2023 11:24 AM CDT): Please see assessment and plan for anxiety generalized disorder. Patient should be assessed by Psychiatry. Assessment & Plan (11/12/2022 4:45 PM LANDSCAPE AND YARDWORK LABORER): Please refer to anxiety assessment and plan [...] years. Assessment & Plan (09/16/2020 11:10 AM LANDSCAPE AND YARDWORK LABORER): - No changes to CSA. - 6 mo f/u Anxiety Generalized Disorder 01/14/2017 Overview (01/06/2024): Stable on: - Gabapentin 700 mg TID - Prozac 30 mg qd - Seroquel 300. - Klonopin 0.5 mg morning, 0.25 mg PRN 2-3 x a week. 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 Diagnosis: Generalized anxiety disorder, bipolar disorder Previous [...] FURTHER REFILLS (last visit was 12/2023 Overseeing treasury consultant: [facility] Urine drug screening requested?: no Urine screening frequency:other- not indicated 11/2022: Patient requested a dose increase. Spoke with Dr. Chow and he advised against increasing clonazepam frequency. Plans to see patient on 11/23/2022. 04/15/2023: Patient did not show up to Psychiatry visit. No changes to her medication changes recently. Still is taking clonazepam regularly. Good social support system with friends and shinto. No red flags. 07/2023: PSY recs - no clonazepam change for now, f/u in six weeks to discuss taper. 12/2023: reduced to 0.25 qAM, 0.25 qPM 2-3 times per week. 01/2024: Patient stated she is going to a doctor in [place] and does not wish to doctor in [place] because we are not going back to [...] time. Assessment & Plan (11/12/2022 4:43 PM LANDSCAPE AND YARDWORK LABORER): Unfortunately, this is a difficult situation. The [...] instead. Assessment & Plan (11/12/2022 4:39 PM LANDSCAPE AND YARDWORK LABORER): Patient has been offered enrollment in low-dose [...] clonazepam Assessment & Plan (11/12/2022 4:46 PM LANDSCAPE AND YARDWORK LABORER): Please see psychiatry notes and the anxiety assessment and plan. Assessment & Plan (09/16/2020 11:10 AM LANDSCAPE AND YARDWORK LABORER): - Continue current medications. - 6 mo CSA recheck. 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 [...] recheck. Assessment & Plan (11/12/2022 4:39 PM LANDSCAPE AND YARDWORK LABORER): Plan to increase amlodipine to 7.5 mg daily. Plan to not change losartan. Not due for any BMP monitoring. Encounters Date Type Department Care Team Description 05/05/2024 Orders Only [facility] [address] [place] [address] Asael Smith M.D. Screening Cancer Colon 04/21/2024 Orders Only [facility] SELF TEST ANTHON[facility] [address] [place] [address] Asael Smith M.D. Screening Cancer Colon from Last 3 Months Immunizations Name Administration Dates Next Due PCV20 02/15/2022 PPSV23 08/12/2014 RZV (SHINGRIX) 11/12/2022,,02/15/2022(Deferre d: Patient decision - needs to check insurance) SARS-COV-2 (COVID-19) - MODE RNA (12 YEARS AND OLDER) [id number] 12/20/2023(Deferred: Patient decision) SARS-COV-2 (COVID-19) - PFIZ [...] drink = 0.6 oz pur e alcohol) [facility] Utilities Answer Date Recorded In the past 12 months has th e electric, gas, oil, or water company threatened to shut off services in your [...] often do you attend chur ch or restoration services? 1 to 4 times [...] your living situation today? I have a [facility] place to live 12/20/2023 Education [...] Additional history exists Potassium Level 02/21/2025 02/22/2024, 07, 10/05/2021, Additional history exists Sodium Level 02/21/2025 [...] Relevant to Health Maintenance Results * (ABNORMAL) Basic Metabolic Panel (04/15/2023 8:27 AM CDT) [facility] Potassium, S 4.9 3.6 - 5.2 mmol/L 04/15/2023 1:23 PM CDT DTL Sodium, S 138 135 - 145 mmol/L 04/15/2023 1:23 PM CDT DTL Chloride, S 100 98 - 107 mmol/L 04/15/2023 1:23 PM CDT DTL Bicarbonate, S 25 22 - 29 mmol/L 04/15/2023 1:23 PM CDT DTL Anion Gap 13 7 - 15 04/15/2023 1:23 PM CDT DTL BUN (Blood Urea Nitrogen), S 16 6 - 21 mg/dL 04/15/2023 1:23 PM CDT DTL Creatinine 1.21(H) 0.59 - 1.04 mg/dL 04/15/2023 1:23 PM CDT DTL Estimated GFR (eGFR) 51(L) >=60 mL/min/BSA 04/15/2023 1:23 PM CDT DTL Comment: Estimated GFR calculated using the 2020 CKD_EPI creatinine equation. Calcium, Total, S 9.6 8.8 - 10.2 mg/dL 04/15/2023 1:23 PM CDT DTL Glucose, S 109 70 - 140 mg/dL 04/15/2023 1:23 PM CDT DTL Blood (Blood, Venous) 04/15/2023 8:27 AM CDT 04/15/2023 12:21 PM CDT Branden De Oliveira, B.Lore., B.A.O. L AB BLOOD ADD-ON [facility] [address] [place] [address], [facility] DTL [facility] [address] [place] [address] * (ABNORMAL) Lipid Panel (02/15/2022 11:09 AM CDT) Pathologist [facility] Cholesterol, Total 297(H) mg/dL 2021 3:37 PM [...] Oliveira, B.Ch., B.A.O. L AB BLOOD ADD-ON [facility] [address] [place] [address], [facility] DTL [facility] [address] [place] [address] from Last 3 Months or Most Recently Relevant to Health Maintenance Care Teams Machine Plate Stacker Relationship Specialty Start Date End Date Asael Smith M.D. [address] [place] [phone] PCP - General 04/06/24
--- OUTSIDE RECORDS SUMMARY | 2024-06-05 12:18 | XMS_ITS | Clinical Summary ---
Author Organization [employer] [facility] Address [place], [place] [address] Care Team Providers Care Firearms Instructor Name Role Phone Roshan Higginbotham NP Primary Care Provider +1- [phone] Allergies Active Allergy Reactions Criticality Noted Date [...] Type Department Care Team Description 04/20/2024 Telephone [facility] [address] [place] [address] Aydin Washington MD Medication Management 04/16/2024 Telephone [facility] [address] [place] [phone] Aydin Washington MD Questions 03/26/2024 10:30 AM CDT Office Visit [facility] [address] [place] [address] Aydin Washington MD 03/13/2024 9:00 AM CDT Ancillary Procedure [facility] [address] [place] [address] 03/13/2024 Orders Only [facility] [address] [place] [address] Judy Mcknight 1 scan: (1-Ord) Final from Last 3 Months Social History Tobacco [...] 2) 2010 COVID-19 vaccine series (3 - 2022-24 season) 2023 01/13/2021, 12/20/2020 Influenza for age 50-64 06/07/2024 Pneumococcal series for age 6-64 Aged Out No longer eligible b ased on patient's age to complete this topic Procedures Procedure Name Priority Date/Time Associated Diagnosis Comments EXTENDED HOLTER Routine 03/16/2024 Unspecified atrial fibrillation (HC) ECHO TTE COMPLETE WO CONTRAST Routine 03/13/2024 9:57 AM CDT Unspecified atrial fibrillation (HC) from Last 3 Months Results * EXTENDED [...] CDT ECHOCARDIOGRAM AIRAM YOUNG ? Accession#: ?? [id number] : ?1960 63 years Study Date: ?? 03/13/2024 9:26:06 AM Gender: F ?BP: ? 128/75 mmHg Height: 165.00 cm ?BSA: ?1.88 m? ? ? Weight: 81.00 kg ? Tech: ? MBF ? Referring MD: ROSHAN HIGGINBOTHAM Site: ? [facility] Reading Location: Mobile OP Patient [...] . This study was interpreted by an [facility] accredited facility. CC: [facility] (med records) [facility]. ??Final ?? Procedure Note Jose Antonio Noriega MD - 03/13/2024 ECHOCARDIOGRAM AIRAM YOUNG : 1960 63 years Study Date: 03/13/2024 9:26:06 AM Gender: F BP: 128/75 mmHg Height: 165.00 cm BSA: 1.88 m? ? ? Weight: 81.00 kg Tech: [facility] Referring MD: ROSHAN HIGGINBOTHAM Site: [facility] Reading Location: Mobile OP Patient [...] . This study was interpreted by an [facility] accredited facility. CC: [facility] (med records) [facility]. Final Roshan Higginbotham NP ECHO ORD from Last 3 Months Care Teams Firearms Instructor Relationship Specialty Start Date End Date Roshan Higginbotham NP [address] [place] [id number] PCP - General 04/17/24
--- OUTSIDE RECORDS SUMMARY | 2024-06-05 12:19 | XMS_ITS | Referral Summary ---
Author Organization [facility] Address [address] [place] [address] Care Team Providers Care Associate Director Regulatory Affairs Name Role Phone Asael Smith M.D. Primary Care Provider Source Comments Patient records contain information from all sites at [facility]. For routine questions regarding patient records, call [phone] during business hours, M-F 8:00 AM - 5:00 PM Central Time. Record requests for emergency care only can be directed to [phone] at any time.[facility] Encounters Date Type Department Care Team Description 05/05/2024 Orders Only [facility] [address] [place] [address] Asael Smith M.D. Screening Cancer Colon 04/21/2024 Orders Only [facility] [address] [place] [address] Asael Smith M.D. Screening Cancer Colon from Last 3 Months Allergies Active Allergy [...] screening. Assessment & Plan (11/12/2022 4:47 PM LABOR UNION BUSINESS REPRESENTATIVE): Patient open to receiving a Cologuard. Declines low-dose lung cancer screening. Must schedule mammogram. Impaired Fasting Glucose 11/18/2018 Overview (12/04/2022): 2020: Normal fasting glucose November 2022: Fasting blood glucose of 114. Repeat in 1 years time. She has a history of intermittent elevated fasting blood glucoses, the highest of which was 121. Assessment & Plan (11/12/2022 4:39 PM LABOR UNION BUSINESS REPRESENTATIVE): Repeat fasting blood glucose. Dyslipidemia 11/18/2018 Overview (11/12/2022): Images from the original note were not included. February 2022: Elevated triglycerides. Lipids 02/15/2022 11:09 AM CHOLESTEROL 297 TRIGLYCERIDES 446 HDL 57 LDL CALC CANCELED Assessment & Plan (11/12/2022 4:46 PM LABOR UNION BUSINESS REPRESENTATIVE): No indication yet repeat lipid panel at this time. We will plan to repeat in approximately 4 years, as part of her drug monitoring therapy. Monitoring For Therapeutic Drug Therapy 05/15/20 18 Overview (01/06/2024): Controlled Substance Prescribing Plan: Stimulants and Benzodiazepines This patient is expected to be on controlled substances residential. Diagnosis: Generalized anxiety disorder, bipolar disorder Previous [...] Monitoring Frequency of visits: 6 month Overseeing curriculum consultant: Dr. Back and Consultants [facility] review/documentation:yes Urine drug screening requested?: no Urine screening frequency:other- not indicated 01/2024: Patient stated she is going to a doctor in [place] and does not wish to doctor in [place] because we are not going back to her current benzo dosing and regimen. Follow up as needed. Assessment & Plan (12/20/2023 12:32 PM CDT): Refer to anxiety generalized Disorder regarding clonazepam Assessment & Plan (04/15/2023 11:24 AM CDT): Please see assessment and plan for anxiety generalized disorder. Patient should be assessed by Psychiatry. Assessment & Plan (11/12/2022 4:45 PM LABOR UNION BUSINESS REPRESENTATIVE): Please refer to anxiety assessment and plan [...] years. Assessment & Plan (09/16/2020 11:10 AM LABOR UNION BUSINESS REPRESENTATIVE): - No changes to CSA. - 6 mo f/u Anxiety Generalized Disorder 01/14/2017 Overview (01/06/2024): Stable on: - Gabapentin 700 mg TID - Prozac 30 mg qd - Seroquel 300. - Klonopin 0.5 mg morning, 0.25 mg PRN 2-3 x a week. Controlled Substance Prescribing Plan: Stimulants and Benzodiazepines This patient is expected to be on controlled substances residential. Diagnosis: Generalized anxiety disorder, bipolar disorder Previous [...] FURTHER REFILLS (last visit was 12/2023 Overseeing curriculum consultant: PCP/Consultants. [facility] review/documentation:yes Urine drug screening requested?: no Urine screening frequency:other- not indicated 11/2022: Patient requested a dose increase. Spoke with Dr. Chow and he advised against increasing clonazepam frequency. Plans to see patient on 11/23/2022. 04/15/2023: Patient did not show up to Psychiatry visit. No changes to her medication changes recently. Still is taking clonazepam regularly. Good social support system with friends and christian. No red flags. 07/2023: PSY recs - no clonazepam change for now, f/u in six weeks to discuss taper. 12/2023: reduced to 0.25 qAM, 0.25 qPM 2-3 times per week. 01/2024: Patient stated she is going to a doctor in [place] and does not wish to doctor in [place] because we are not going back to [...] time. Assessment & Plan (11/12/2022 4:43 PM LABOR UNION BUSINESS REPRESENTATIVE): Unfortunately, this is a difficult situation. The [...] instead. Assessment & Plan (11/12/2022 4:39 PM LABOR UNION BUSINESS REPRESENTATIVE): Patient has been offered enrollment in low-dose [...] clonazepam Assessment & Plan (11/12/2022 4:46 PM LABOR UNION BUSINESS REPRESENTATIVE): Please see psychiatry notes and the anxiety assessment and plan. Assessment & Plan (09/16/2020 11:10 AM LABOR UNION BUSINESS REPRESENTATIVE): - Continue current medications. - 6 mo CSA recheck. Hypertension Essential Primary 05/18/2014 Overview (04/15/2023): 03/23/21: BP elevated in setting of multiple emotional stressors, SAFETY INSTRUCTOR return visit ordered in 1 month. 2021: [...] recheck. Assessment & Plan (11/12/2022 4:39 PM LABOR UNION BUSINESS REPRESENTATIVE): Plan to increase amlodipine to 7.5 mg daily. Plan to not change losartan. Not due for any BMP monitoring. Immunizations Name Administration Dates Next Due PCV20 02/15/2022 PPSV23 08/12/2014 RZV ([employer]) 11/12/2022,,02/15/2022(Deferre d: Patient decision - needs to check insurance) SARS-COV-2 (COVID-19) - MODE RNA (12 YEARS AND OLDER) [id number] 12/20/2023(Deferred: Patient decision) SARS-COV-2 (COVID-19) - PFIZ [...] drink = 0.6 oz pur e alcohol) [facility] Utilities Answer Date Recorded In the past 12 months has e electric, gas, oil, or water company [...] often do you attend chur ch or orthodox services? 1 to 4 times per year 02/15/2022 Do you belong to any clubs o r organizations such as christian groups, unions, fraternal or athletic groups, or [...] Answer Date Recorded PHQ-2 Score 0 12/20/2023 [facility] alexander campusal [facility] - Occupational Stress Questionnaire Answer Date [...] your living situation today? I have a [facility] place to live 12/20/2023 Education [...] Basic Metabolic Panel (04/15/2023 8:27 AM CDT) Potassium, S 4.9 3.6 - 5.2 mmol/L [...] Oliveira, B.Lore., B.A.O. L AB BLOOD ADD-ON [facility] [address] [place] [address], [facility] [address] [place] [address] * (ABNORMAL) Lipid Panel (02/15/2022 11:09 AM CDT) Pathologist [facility] Cholesterol, Total 297(H) mg/dL 2021 3:37 PM [...] 02/15/2022 3:09 PM CDT Branden De Oliveira, B.Lore., B.A.O. L AB BLOOD ADD-ON [facility] [address] [place] [address], [facility] [address] [place] [address] from Last 3 Months or Most Recently Relevant to Health Maintenance Care Teams Associate Director Regulatory Affairs Relationship Specialty Start Date End Date Asael Smith M.D. [address] [place] [phone] PCP - General 04/06/24
--- OUTSIDE RECORDS SUMMARY | 2024-06-05 12:19 | XMS_ITS | Encounter Summary ---
Author Organization [facility] Address [address] [place] [address] Care Team Providers Care Technical Marketing Engineer Name Role Phone Asael Smith M.D. Primary Care Provider Encounter Details Date Type Department Care Team (Late st Contact Info) Description 05/05/2024 Orders Only [facility] [address] [place] [address] Asael Smith M.D. [address] [place] [address] Screening Cancer Colon Social History Tobacco Use Types Packs/Day Years Used Date Smoking Tobacco: Every Day Cigarettes 1 48.8 Started: 08/08/1975 Passive Smoke Exposure: Current Smokeless Tobacco: Never Alcohol Use Standard Drinks/Week Comments Never 0 (1 standard drink = 0.6 oz pur e alcohol) [facility] Utilities Answer Date Recorded In the past 12 months has [facility] [employer], gas, oil, or water [employer] threatened to shut off services in your [...] How often do you attend chur or voodoo services? 1 to 4 times per year 02/15/2022 Do you belong to any clubs o r organizations such as orthodox groups, unions, fraternal or athletic groups, or [...] Recorded PHQ-2 Score 0 12/20/2023 [facility] - Occupational [...] living situation today? I have a [facility] place to live 12/20/2023 Education Answer Date [...] documented as of this encounter Care Teams Technical Marketing Engineer Relationship Specialty Start Date End Date Asael Smith M.D. [address] [place] [address] PCP - General 04/06/24 documented as of this encounter
--- OUTSIDE RECORDS SUMMARY | 2024-06-05 12:19 | XMS_ITS ---
Author Organization [facility] Address [address] [place] [address] Care Team Providers Care Crown Assembly Machine Set Up Mechanic Name Role Phone Unavailable Unavailable Unavailable Surgery Details Not on file Complications Check Surgery Details section. Procedure Estimated Blood Loss Check Surgery Details section. Procedure Findings Check Surgery Details section. Procedure Specimens Taken Check Surgery Details section.
--- OUTSIDE RECORDS SUMMARY | 2024-06-05 12:19 | XMS_ITS | Encounter Summary ---
Author Organization [facility] Address [address] [place] [address] Care Team Providers Care Regional Director Of Finance Name Role Phone Asael Smith M.D. Primary Care Provider Encounter Details Date Type Department Care Team (Late st Contact Info) Description 04/21/2024 Orders Only [facility] [address] [place] [address] Asael Smith M.D. [address] [place] [address] Screening Cancer Colon Social History Tobacco Use Types Packs/Day Years Used Date Smoking Tobacco: Every Day Cigarettes 1 48.8 Started: 08/08/1975 Passive Smoke Exposure: Current Smokeless Tobacco: Never Alcohol Use Standard Drinks/Week Comments Never 0 (1 standard drink = 0.6 oz pur e alcohol) [facility] Utilities Answer Date Recorded In the past 12 months has [facility] [employer], gas, oil, or water [employer] threatened to shut off services in your [...] any clubs o r organizations such as religious groups, unions, fraternal or athletic groups, or [...] Date Recorded PHQ-2 Score 0 12/20/2023 [facility]at [facility] - Occupational [...] your living situation today? I have a [facility] place to live 12/20/2023 Education [...] documented as of this encounter Care Teams Regional Director Of Finance Relationship Specialty Start Date End Date Asael Smith M.D. NPElena: [phone] [address] [place] [phone] PCP - General 04/06/24 documented as of this encounter
== END 2024-06-02 10:25 | disposition home or self-care (01) ==
LOC: NFLDREF 06-05 12:17
PROVIDERS: PCP Nurse Practitioner Family; Referring Provider Nurse Practitioner Family; Visit Provider Nurse Practitioner Family
DX: Z79.01 Long term (current) use of anticoagulants (principal)
CPT/HCPCS: 85610

== ENCOUNTER 2024-06-09 10:31 | Outpatient (CLI) | payer OTHER, SELFPAY ==
--- OUTSIDE RECORDS SUMMARY | 2024-06-16 07:14 | XMS_ITS | Clinical Summary ---
Author Organization [facility] Address [place], [place] [address] Care Team Providers Care Fast Food Restaurant Manager Name Role Phone Swati Higginbotham PARLOR MAID Primary Care Provider [phone] Allergies Active Allergy Reactions Criticality Noted Date [...] Type Department Care Team Description 04/20/2024 Telephone [facility] [address] [place] [address] Aydin Washington MD Medication Management 04/16/2024 Telephone [employer] [facility] [address] [place] [address] Aydin Washington MD Questions 03/26/2024 10:30 AM CDT Office Visit [facility] [address] [address] Aydin Washington MD from Last 3 Months Social History Tobacco [...] (1 of 2) 2010 COVID-19 vaccine series ( season) 2024 01/13/2021, 12/20/2020 Influenza for age 50-64 06/07/2024 Pneumococcal series for age 6-64 Aged Out No longer eligible b ased on patient's age to complete this topic Procedures Procedure Name Priority Date/Time Associated Diagnosis Comments EXTENDED HOLTER Routine 03/16/2024 Unspecified atrial fibrillation (HC) from Last 3 Months Results * EXTENDED HOLTER (03/16/2024) Swati Higginbotham NP CARDIAC SERVICES [address] from Last 3 Months Care Teams Fast Food Restaurant Manager Relationship Specialty Start Date End Date Swati Higginbotham, DARCIE [address] [place] [id number] PCP - General 04/17/24
--- OUTSIDE RECORDS SUMMARY | 2024-06-16 07:14 | XMS_ITS | Clinical Summary ---
Author Organization [facility] Address [address] [place] [address] Care Team Providers Care X Ray Equipment Tester Name Role Phone Asael Smith M.D. Primary Care Provider Source Comments Patient records contain information from all sites at [facility]. For routine questions regarding patient records, call [phone] during business hours, M-F 8:00 AM - 5:00 PM Central Time. Record requests for emergency care only can be directed to [phone] at any time.[facility] Allergies Active Allergy Reactions Criticality Noted [...] screening. Assessment & Plan (11/12/2022 4:47 PM STRAIGHT CUTTER): Patient open to receiving a Cologuard. Declines low-dose lung cancer screening. Must schedule mammogram. Impaired Fasting Glucose 11/18/2018 Overview (12/04/2022): 2020: Normal fasting glucose November 2022: Fasting blood glucose of 114. Repeat in 1 years time. She has a history of intermittent elevated fasting blood glucoses, the highest of which was 121. Assessment & Plan (11/12/2022 4:39 PM STRAIGHT CUTTER): Repeat fasting blood glucose. Dyslipidemia 11/18/2018 Overview (11/12/2022): Images from the original note were not included. February 2022: Elevated triglycerides. Lipids 02/15/2022 11:09 AM CHOLESTEROL 297 TRIGLYCERIDES 446 HDL 57 LDL CALC CANCELED Assessment & Plan (11/12/2022 4:46 PM STRAIGHT CUTTER): No indication yet repeat lipid panel at [...] Monitoring Frequency of visits: 6 month Overseeing tour consultant: Dr. Back [facility] review/documentation:yes Urine drug screening requested?: no Urine screening frequency:other- not indicated 01/2024: Patient stated she is going to a doctor in [place] and does not wish to doctor in [place] because we are not going back to her current benzo dosing and regimen. Follow up as needed. Assessment & Plan (12/20/2023 12:32 PM CDT): Refer to anxiety generalized Disorder regarding clonazepam Assessment & Plan (04/15/2023 11:24 AM CDT): Please see assessment and plan for anxiety generalized disorder. Patient should be assessed by Psychiatry. Assessment & Plan (11/12/2022 4:45 PM STRAIGHT CUTTER): Please refer to anxiety assessment and plan [...] years. Assessment & Plan (09/16/2020 11:10 AM STRAIGHT CUTTER): - No changes to CSA. - 6 [...] FURTHER REFILLS (last visit was 12/2023 Overseeing tour consultant: [facility]Consultants. [facility] Urine drug screening requested?: [...] Good social support system with friends and taoist. No red flags. 07/2023: PSY recs - no clonazepam change for now, f/u in six weeks to discuss taper. 12/2023: reduced to 0.25 qAM, 0.25 qPM 2-3 times per week. 01/2024: Patient stated she is going to a doctor in [place] and does not wish to doctor in [place] because we are not going back to [...] time. Assessment & Plan (11/12/2022 4:43 PM STRAIGHT CUTTER): Unfortunately, this is a difficult situation. The [...] instead. Assessment & Plan (11/12/2022 4:39 PM STRAIGHT CUTTER): Patient has been offered enrollment in low-dose [...] clonazepam Assessment & Plan (11/12/2022 4:46 PM STRAIGHT CUTTER): Please see psychiatry notes and the anxiety assessment and plan. Assessment & Plan (09/16/2020 11:10 AM STRAIGHT CUTTER): - Continue current medications. - 6 mo CSA recheck. Hypertension Essential Primary 05/18/2014 Overview (04/15/2023): 03/23/21: BP elevated in setting of multiple emotional stressors, STRAIGHTENING PRESS OPERATOR HELPER return visit ordered in 1 month. 2021: [...] recheck. Assessment & Plan (11/12/2022 4:39 PM STRAIGHT CUTTER): Plan to increase amlodipine to 7.5 mg daily. Plan to not change losartan. Not due for any BMP monitoring. Encounters Date Type Department Care Team Description 05/05/2024 Orders Only RST SELF TEST ANTHONY [address] [place] [address] Asael Smith M.D. Screening Cancer Colon 04/21/2024 Orders Only RST SELF TEST ANTHONY [address] [place] [address] Asael Smith M.D. Screening Cancer Colon from Last 3 Months Immunizations Name Administration Dates Next Due PCV20 02/15/2022 PPSV23 08/12/2014 RZV (SHINGRIX) 11/12/2022,,02/15/2022(Deferre d: Patient decision - needs to check insurance) SARS-COV-2 (COVID-19) - MODE RNA (12 YEARS AND OLDER) [id number] 12/20/2023(Deferred: Patient decision) SARS-COV-2 (COVID-19) - PFIZ [...] Date Smoking Tobacco: Every Day Cigarettes 1 48.9 Started: 08/08/1975 Passive Smoke Exposure: Current Smokeless Tobacco: Never Tobacco Cessation:Ready to Q uit: Not Asked; Counseling Given: Not Answered Alcohol Use Standard Drinks/Week Comments Never 0 (1 standard drink = 0.6 oz pur e alcohol) [facility] Utilities Answer Date Recorded In the [...] often do you attend chur ch or orthodoxy services? 1 to 4 times per year 02/15/2022 Do you belong to any clubs o r organizations such as taoist groups, unions, fraternal or athletic groups, or [...] Answer Date Recorded PHQ-2 Score 0 12/20/2023 [facility]at [facility] - Occupational [...] your living situation today? I have a [facility] place to live 12/20/2023 Education Answer [...] Basic Metabolic Panel (04/15/2023 8:27 AM CDT) [facility] Potassium, S 4.9 3.6 - 5.2 mmol/L [...] Oliveira, B.Lore., B.A.O. L AB BLOOD ADD-ON [facility] [address] [place] [address], [facility] DTL [facility] [address] [place] [address] * (ABNORMAL) Lipid Panel (02/15/2022 11:09 AM CDT) Pathologist [facility] Cholesterol, Total 297(H) mg/dL 2021 [...] ADD-ON [facility] [address] [place] [address], [facility] DTL [facility] [address] [place] [address] from Last 3 Months or Most Recently Relevant to Health Maintenance Care Teams X Ray Equipment Tester Relationship Specialty Start Date End Date Asael Smith M.D. [address] [place] [phone] PCP - General 04/06/24
--- OUTSIDE RECORDS SUMMARY | 2024-06-16 07:14 | XMS_ITS | Referral Summary ---
Author Organization [facility] Address [address] [place] [address] Care Team Providers Care Robotic Weld Technician Name Role Phone Asael Smith M.D. Primary Care Provider Source Comments Patient records contain information from all sites at [facility]. For routine questions regarding patient records, call [phone] during business hours, M-F 8:00 AM - 5:00 PM Central Time. Record requests for emergency care only can be directed to [phone] at any time.[facility] Encounters Date Type Department Care Team Description 05/05/2024 Orders Only RST SELF TEST ANTHONY [address] [place] [address] Asael Smith M.D. Screening Cancer Colon 04/21/2024 Orders Only RST SELF TEST ANTHONY [address] [place] [address] Asael Smith M.D. Screening Cancer Colon from [...] screening. Assessment & Plan (11/12/2022 4:47 PM MANAGER SYSTEMS): Patient open to receiving a Cologuard. Declines low-dose lung cancer screening. Must schedule mammogram. Impaired Fasting Glucose 11/18/2018 Overview (12/04/2022): 2020: Normal fasting glucose November 2022: Fasting blood glucose of 114. Repeat in 1 years time. She has a history of intermittent elevated fasting blood glucoses, the highest of which was 121. Assessment & Plan (11/12/2022 4:39 PM MANAGER SYSTEMS): Repeat fasting blood glucose. Dyslipidemia 11/18/2018 Overview (11/12/2022): Images from the original note were not included. February 2022: Elevated triglycerides. Lipids 02/15/2022 11:09 AM CHOLESTEROL 297 TRIGLYCERIDES 446 HDL 57 LDL CALC CANCELED Assessment & Plan (11/12/2022 4:46 PM MANAGER SYSTEMS): No indication yet repeat lipid panel at [...] Monitoring Frequency of visits: 6 month Overseeing incident response consultant: Dr. Back and Consultants [facility] review/documentation:yes Urine drug screening requested?: no Urine screening frequency:other- not indicated 01/2024: Patient stated she is going to a doctor in [place] and does not wish to doctor in [place] because we are not going back to her current benzo dosing and regimen. Follow up as needed. Assessment & Plan (12/20/2023 12:32 PM CDT): Refer to anxiety generalized Disorder regarding clonazepam Assessment & Plan (04/15/2023 11:24 AM CDT): Please see assessment and plan for anxiety generalized disorder. Patient should be assessed by Psychiatry. Assessment & Plan (11/12/2022 4:45 PM MANAGER SYSTEMS): Please refer to anxiety assessment and plan [...] years. Assessment & Plan (09/16/2020 11:10 AM MANAGER SYSTEMS): - No changes to CSA. - 6 mo f/u Anxiety Generalized Disorder 01/14/2017 Overview (01/06/2024): Stable on: - Gabapentin 700 mg TID - Prozac 30 mg qd - Seroquel 300. - Klonopin 0.5 mg morning, 0.25 mg PRN 2-3 x a week. Controlled Substance Prescribing Plan: Stimulants and Benzodiazepines This patient is expected to be on controlled substances senior living. Diagnosis: Generalized anxiety disorder, bipolar disorder Previous [...] FURTHER REFILLS (last visit was 12/2023 Overseeing incident response consultant: PCP/Consultants. [facility] review/documentation:yes Urine drug screening [...] Good social support system with friends and islam. No red flags. 07/2023: PSY recs - no clonazepam change for now, f/u in six weeks to discuss taper. 12/2023: reduced to 0.25 qAM, 0.25 qPM 2-3 times per week. 01/2024: Patient stated she is going to a doctor in [place] and does not wish to doctor in [place] because we are not going back to [...] time. Assessment & Plan (11/12/2022 4:43 PM MANAGER SYSTEMS): Unfortunately, this is a difficult situation. The [...] instead. Assessment & Plan (11/12/2022 4:39 PM MANAGER SYSTEMS): Patient has been offered enrollment in low-dose [...] clonazepam Assessment & Plan (11/12/2022 4:46 PM MANAGER SYSTEMS): Please see psychiatry notes and the anxiety assessment and plan. Assessment & Plan (09/16/2020 11:10 AM MANAGER SYSTEMS): - Continue current medications. - 6 mo CSA recheck. 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 2021: [...] recheck. Assessment & Plan (11/12/2022 4:39 PM MANAGER SYSTEMS): Plan to increase amlodipine to 7.5 mg daily. Plan to not change losartan. Not due for any BMP monitoring. Immunizations Name Administration Dates Next Due PCV20 02/15/2022 PPSV23 08/12/2014 RZV (SHINGRIX) 11/12/2022,,02/15/2022(Deferre d: Patient decision - needs to check insurance) SARS-COV-2 (COVID-19) - MODE RNA (12 YEARS AND OLDER) [id number] 12/20/2023(Deferred: Patient decision) SARS-COV-2 (COVID-19) - PFIZ [...] often do you attend chur ch or yazidi services? 1 to 4 times per year 02/15/2022 Do you belong to any clubs o r organizations such as islam groups, unions, fraternal or athletic groups, or [...] Date Recorded PHQ-2 Score 0 12/20/2023 [facility] - Occupational Stress Questionnaire Answer Date Recorded [...] living situation today? I have a [facility] place to live 12/20/2023 Education Answer [...] Oliveira, B.Lore., B.A.O. L AB BLOOD ADD-ON [facility] [address] [place] [address], [facility] [address] [place] [address] * (ABNORMAL) Lipid Panel (02/15/2022 11:09 AM CDT) Pathologist [facility] Cholesterol, Total 297(H) mg/dL 2021 3:37 PM [...] Oliveira, B.Lore., B.A.O. L AB BLOOD ADD-ON [facility] [address] [place] [address], [facility] [address] [place] [address] from Last 3 Months or Most Recently Relevant to Health Maintenance Care Teams Robotic Weld Technician Relationship Specialty Start Date End Date Asael Smith M.D. [address] [place] [phone] PCP - General 04/06/24
--- OUTSIDE RECORDS SUMMARY | 2024-06-16 07:14 | XMS_ITS ---
Author Organization [facility] Address [address] [place] [address] Care Team Providers Care Mathematical Statistician Name Role Phone Unavailable Unavailable Unavailable Surgery Details Not on file Complications Check Surgery Details section. Procedure Estimated Blood Loss Check Surgery Details section. Procedure Findings Check Surgery Details section. Procedure Specimens Taken Check Surgery Details section.
--- OUTSIDE RECORDS SUMMARY | 2024-06-16 07:15 | XMS_ITS | Encounter Summary ---
Author Organization [facility] Address [address] [place] [address] Care Team Providers Care Molding And Trim Installer Name Role Phone Asael Smith M.D. Primary Care Provider Encounter Details Date Type Department Care Team (Late st Contact Info) Description 04/21/2024 Orders Only RST SELF TEST ANTHONY [address] [place] [address] Asael Smith M.D. [address] [place] [address] Screening Cancer Colon Social History Tobacco Use Types Packs/Day Years Used Date Smoking Tobacco: Every Day Cigarettes 1 48.9 Started: 08/08/1975 Passive Smoke Exposure: Current Smokeless Tobacco: Never Alcohol Use Standard Drinks/Week Comments Never 0 (1 standard drink = 0.6 oz pur e alcohol) [facility] Utilities Answer Date Recorded In the past 12 months has [facility] [employer], gas, oil, or water [employer] threatened to shut off services in your [...] How often do you attend chur or lutheran services? 1 to 4 times per year [...] Answer Date Recorded PHQ-2 Score 0 12/20/2023 [facility] of Occupat ional Health - Occupational [...] your living situation today? I have a [facility] place to live 12/20/2023 Education Answer [...] documented as of this encounter Care Teams Molding And Trim Installer Relationship Specialty Start Date End Date Asael Smith M.D. NPElena: [phone] [address] [place] [address] PCP - General 04/06/24 documented as of this encounter
--- OUTSIDE RECORDS SUMMARY | 2024-06-16 07:15 | XMS_ITS | Encounter Summary ---
Author Organization [facility] Address [address] [place] [address] Care Team Providers Care [facility] Name Role Phone Asael Smith M.D. Primary Care Provider Encounter Details Date Type Department Care Team (Late st Contact Info) Description 05/05/2024 Orders Only RST SELF TEST ANTHONY [address] [place] [address] Asael Smith M.D. [address] [place] [address] Screening Cancer Colon Social History Tobacco Use Types Packs/Day Years Used Date Smoking Tobacco: Every Day Cigarettes 1 48.9 Started: 08/08/1975 Passive Smoke Exposure: Current Smokeless Tobacco: Never Alcohol Use Standard Drinks/Week Comments Never 0 (1 standard drink = 0.6 oz pur e alcohol) [facility] Utilities Answer Date Recorded In the past 12 months has [facility] [employer], gas, oil, or water [employer] threatened to shut off services in your [...] How often do you attend chur or adventist services? 1 to 4 times per year [...] your living situation today? I have a [facility] place to live 12/20/2023 Education Answer Date [...] documented as of this encounter Care Teams [facility] Relationship Specialty Start Date End Date Asael Smith M.D. [address] [place] [address] PCP - General 04/06/24 documented as of this encounter
== END 2024-06-09 10:32 | disposition home or self-care (01) ==
LOC: NFLDREF 06-16 07:12
PROVIDERS: PCP Nurse Practitioner Family; Referring Provider Nurse Practitioner Family; Visit Provider Nurse Practitioner Family
DX: I48.19 Other persistent atrial fibrillation (principal); Z79.01 Long term (current) use of anticoagulants
CPT/HCPCS: 85610

== ENCOUNTER 2024-06-10 09:44 | Outpatient (CLI) | payer OTHER, SELFPAY ==
--- OUTSIDE RECORDS SUMMARY | 2024-06-10 09:49 | XMS_ITS | Encounter Summary ---
Author Organization [facility] Address [address] [place] [address] Care Team Providers Care Commercial Account Officer Name Role Phone Asael Smith M.D. Primary Care Provider Encounter Details Date Type Department Care Team (Late st Contact Info) Description 04/21/2024 Orders Only [facility] [address] [place] [address] Asael Smith M.D. [address] [place] [address] Screening Cancer Colon Social History Tobacco Use Types Packs/Day Years Used Date Smoking Tobacco: Every Day Cigarettes 1 48.8 Started: 08/08/1975 Passive Smoke Exposure: Current Smokeless Tobacco: Never Alcohol Use Standard Drinks/Week Comments Never 0 (1 standard drink = 0.6 oz pur e alcohol) [facility] Utilities Answer Date Recorded In the past 12 months has [facility] [employer], gas, oil, or water [employer] threatened to shut off services in your [...] How often do you attend chur or latter day services? 1 to 4 times per year 02/15/2022 Do you belong to any clubs o r organizations such as oriental orthodox groups, unions, fraternal or athletic groups, [...] Answer Date Recorded PHQ-2 Score 0 12/20/2023 [facility] - [...] your living situation today? I have a [facility] place to live 12/20/2023 Education Answer [...] documented as of this encounter Care Teams Commercial Account Officer Relationship Specialty Start Date End Date Asael Smith M.D. NPElena: [phone] [address] [place] [address] PCP - General 04/06/24 documented as of this encounter
--- OUTSIDE RECORDS SUMMARY | 2024-06-10 09:49 | XMS_ITS | Clinical Summary ---
Author Organization [email or web address] [facility] Address [place], [place] [address] Care Team Providers Care Ticket Agent Name Role Phone Roshan Higginbotham NP Primary Care Provider +1- [phone] Allergies Active Allergy Reactions Criticality Noted Date [...] Type Department Care Team Description 04/20/2024 Telephone [facility] [address] [place] [address] Aydin Washington MD Medication Management 04/16/2024 Telephone [facility] [address] [place] [phone] Aydin Washington MD Questions 03/26/2024 10:30 AM CDT Office Visit [facility] [address] [place] [address] Aydin Washington MD 03/13/2024 9:00 AM CDT Ancillary Procedure [facility] [address] [place] [address] 03/13/2024 Orders Only [facility] [address] [place] [address] Judy Mcknight 1 scan: (1-Ord) Final from [...] of 2) 2010 COVID-19 vaccine series (3 2022- season) 2024 01/13/2021, 12/20/2020 Influenza for age 50-64 06/07/2024 [...] CDT ECHOCARDIOGRAM AIRAM YOUNG ? Accession#: ?? [id number] : ?1960 63 years Study Date: ?? 03/13/2024 9:26:06 AM Gender: F ?BP: ? 128/75 mmHg Height: 165.00 cm ?BSA: ?1.88 m? ? ? Weight: 81.00 kg ? Tech: ? MBF ? Referring MD: ROSHAN HIGGINBOTHAM Site: ? [facility] Reading Location: Mobile OP Patient [...] . This study was interpreted by an [facility] accredited facility. CC: [facility] (med records) [facility]. ??Final ?? Procedure Note Jose Antonio Noriega MD - 03/13/2024 ECHOCARDIOGRAM AIRAM YOUNG : 1960 63 years Study Date: 03/13/2024 9:26:06 AM Gender: F BP: 128/75 mmHg Height: 165.00 cm BSA: 1.88 m? ? ? Weight: 81.00 kg Tech: [facility] Referring MD: ROSHAN HIGGINBOTHAM Site: [facility] Reading Location: Mobile OP [...] . This study was interpreted by an [facility] accredited facility. CC: [facility] (med records) [facility]. Final Roshan Higginbotham NP ECHO ORD from Last 3 Months Care Teams Ticket Agent Relationship Specialty Start Date End Date Roshan Higginbotham NP [address] [place] [id number] PCP - General 04/17/24
--- OUTSIDE RECORDS SUMMARY | 2024-06-10 09:49 | XMS_ITS | Referral Summary ---
Author Organization [facility] Address [address] [place] [address] Care Team Providers Care Boilermaker Name Role Phone Asael Smith M.D. Primary Care Provider Source Comments Patient records contain information from all sites at [facility]. For routine questions regarding patient records, call [phone] during business hours, M-F 8:00 AM - 5:00 PM Central Time. Record requests for emergency care only can be directed to [phone] at any time.[facility] Encounters Date Type Department Care Team Description 05/05/2024 Orders Only RST SELF TEST ANTHONY [address] [place] [address] Asael Smith M.D. Screening Cancer Colon 04/21/2024 Orders Only RST SELF TEST ANTHONY [address] [place] [address] Asael Smith M.D. Screening Cancer Colon from [...] screening. Assessment & Plan (11/12/2022 4:47 PM CHIMNEY BUILDER HELPER): Patient open to receiving a Cologuard. Declines low-dose lung cancer screening. Must schedule mammogram. Impaired Fasting Glucose 11/18/2018 Overview (12/04/2022): 2020: Normal fasting glucose November 2022: Fasting blood glucose of 114. Repeat in 1 years time. She has a history of intermittent elevated fasting blood glucoses, the highest of which was 121. Assessment & Plan (11/12/2022 4:39 PM CHIMNEY BUILDER HELPER): Repeat fasting blood glucose. Dyslipidemia 11/18/2018 Overview (11/12/2022): Images from the original note were not included. February 2022: Elevated triglycerides. Lipids 02/15/2022 11:09 AM CHOLESTEROL 297 TRIGLYCERIDES 446 HDL 57 LDL CALC CANCELED Assessment & Plan (11/12/2022 4:46 PM CHIMNEY BUILDER HELPER): No indication yet repeat lipid panel at this time. We will plan to repeat in approximately 4 years, as part of her drug monitoring therapy. Monitoring For Therapeutic Drug Therapy 05/15/20 18 Overview (01/06/2024): Controlled Substance Prescribing Plan: Stimulants and Benzodiazepines This patient is expected to be on controlled substances care home. Diagnosis: Generalized anxiety disorder, bipolar disorder Previous [...] Monitoring Frequency of visits: 6 month Overseeing workforce management consultant: Dr. Back and Consultants [facility] review/documentation:yes Urine drug screening requested?: no Urine screening frequency:other- not indicated 01/2024: Patient stated she is going to a doctor in [place] and does not wish to doctor in [place] because we are not going back to her current benzo dosing and regimen. Follow up as needed. Assessment & Plan (12/20/2023 12:32 PM CDT): Refer to anxiety generalized Disorder regarding clonazepam Assessment & Plan (04/15/2023 11:24 AM CDT): Please see assessment and plan for anxiety generalized disorder. Patient should be assessed by Psychiatry. Assessment & Plan (11/12/2022 4:45 PM CHIMNEY BUILDER HELPER): Please refer to anxiety assessment and plan [...] years. Assessment & Plan (09/16/2020 11:10 AM CHIMNEY BUILDER HELPER): - No changes to CSA. - 6 mo f/u Anxiety Generalized Disorder 01/14/2017 Overview (01/06/2024): Stable on: - Gabapentin 700 mg TID - Prozac 30 mg qd - Seroquel 300. - Klonopin 0.5 mg morning, 0.25 mg PRN 2-3 x a week. Controlled Substance Prescribing Plan: Stimulants and Benzodiazepines This patient is expected to be on controlled substances bobbin drier. Diagnosis: Generalized anxiety disorder, bipolar disorder Previous [...] FURTHER REFILLS (last visit was 12/2023 Overseeing workforce management consultant: PCP/Consultants. [facility] review/documentation:yes Urine drug screening [...] Good social support system with friends and gnosticist. No red flags. 07/2023: PSY recs - no clonazepam change for now, f/u in six weeks to discuss taper. 12/2023: reduced to 0.25 qAM, 0.25 qPM 2-3 times per week. 01/2024: Patient stated she is going to a doctor in [place] and does not wish to doctor in [place] because we are not going back to [...] time. Assessment & Plan (11/12/2022 4:43 PM CHIMNEY BUILDER HELPER): Unfortunately, this is a difficult situation. The [...] instead. Assessment & Plan (11/12/2022 4:39 PM CHIMNEY BUILDER HELPER): Patient has been offered enrollment in low-dose [...] clonazepam Assessment & Plan (11/12/2022 4:46 PM CHIMNEY BUILDER HELPER): Please see psychiatry notes and the anxiety assessment and plan. Assessment & Plan (09/16/2020 11:10 AM CHIMNEY BUILDER HELPER): - Continue current medications. - 6 mo CSA recheck. Hypertension Essential Primary 05/18/2014 Overview (04/15/2023): 03/23/21: BP elevated in setting of multiple emotional stressors, PRESS TENDER return visit ordered in 1 month. 2021: [...] recheck. Assessment & Plan (11/12/2022 4:39 PM CHIMNEY BUILDER HELPER): Plan to increase amlodipine to 7.5 mg daily. Plan to not change losartan. Not due for any BMP monitoring. Immunizations Name Administration Dates Next Due PCV20 02/15/2022 PPSV23 08/12/2014 RZV (SHINGRIX) 11/12/2022,,02/15/2022(Deferre d: Patient decision - needs to check insurance) SARS-COV-2 (COVID-19) - MODE RNA (12 YEARS AND OLDER) [id number] 12/20/2023(Deferred: Patient decision) SARS-COV-2 (COVID-19) - PFIZ [...] drink = 0.6 oz pur e alcohol) [facility] Utilities Answer Date Recorded In the [...] often do you attend chur ch or taoist services? 1 to 4 times per year 02/15/2022 Do you belong to any clubs o r organizations such as gnosticist groups, unions, fraternal or athletic groups, or [...] Answer Date Recorded PHQ-2 Score 0 12/20/2023 [facility] - Occupational Stress Questionnaire Answer Date [...] your living situation today? I have a [facility] place to live 12/20/2023 Education Answer Date [...] Oliveira, B.Lore., B.A.O. L AB BLOOD ADD-ON [facility] [address] [place] [address], [facility] [address] [place] [address] * (ABNORMAL) Lipid Panel (02/15/2022 11:09 AM CDT) Pathologist [facility] Cholesterol, Total 297(H) mg/dL 2021 3:37 PM [...] Oliveira, B.Lore., B.A.O. L AB BLOOD ADD-ON [facility] [address] [place] [address], [facility] [address] [place] [address] from Last 3 Months or Most Recently Relevant to Health Maintenance Care Teams Boilermaker Relationship Specialty Start Date End Date Asael Smith M.D. [address] [place] [phone] PCP - General 04/06/24
--- OUTSIDE RECORDS SUMMARY | 2024-06-10 09:49 | XMS_ITS ---
Author Organization [facility] Address [address] [place] [address] Care Team Providers Care Substitute School Nurse Name Role Phone Unavailable Unavailable Unavailable Surgery Details Not on file Complications Check Surgery Details section. Procedure Estimated Blood Loss Check Surgery Details section. Procedure Findings Check Surgery Details section. Procedure Specimens Taken Check Surgery Details section.
--- OUTSIDE RECORDS SUMMARY | 2024-06-10 09:49 | XMS_ITS | Encounter Summary ---
Author Organization [facility] Address [address] [place] [address] Care Team Providers Care Typesetters Printer Name Role Phone Asael Smith M.D. Primary Care Provider Encounter Details Date Type Department Care Team (Late st Contact Info) Description 05/05/2024 Orders Only RST SELF TEST ANTHONY [address] [place] [address] Asael Smith M.D. [address] [place] [address] Screening Cancer Colon Social History Tobacco Use Types Packs/Day Years Used Date Smoking Tobacco: Every Day Cigarettes 1 48.8 Started: 08/08/1975 Passive Smoke Exposure: Current Smokeless Tobacco: Never Alcohol Use Standard Drinks/Week Comments Never 0 (1 standard drink = 0.6 oz pur e alcohol) [facility] Utilities Answer Date Recorded In the past 12 months has [facility] [employer], gas, oil, or water [employer] threatened to shut off services in your [...] any clubs o r organizations such as restoration groups, unions, fraternal or athletic groups, or [...] Answer Date Recorded PHQ-2 Score 0 12/20/2023 [facility] - Occupational [...] documented as of this encounter Care Teams Typesetters Printer Relationship Specialty Start Date End Date Asael Smith M.D. [address] [place] [address] PCP - General 04/06/24 documented as of this encounter
--- OUTSIDE RECORDS SUMMARY | 2024-06-10 09:49 | XMS_ITS | Clinical Summary ---
Author Organization [facility] Address [address] [place] [address] Care Team Providers Care Chief Order Dispatcher Name Role Phone Asael Smith M.D. Primary Care Provider Source Comments Patient records contain information from all sites at [facility]. For routine questions regarding patient records, call [phone] during business hours, M-F 8:00 AM - 5:00 PM Central Time. Record requests for emergency care only can be directed to [phone] at any time.[facility] Allergies Active Allergy Reactions Criticality Noted [...] screening. Assessment & Plan (11/12/2022 4:47 PM SEWING TRIMMER): Patient open to receiving a Cologuard. Declines low-dose lung cancer screening. Must schedule mammogram. Impaired Fasting Glucose 11/18/2018 Overview (12/04/2022): 2020: Normal fasting glucose November 2022: Fasting blood glucose of 114. Repeat in 1 years time. She has a history of intermittent elevated fasting blood glucoses, the highest of which was 121. Assessment & Plan (11/12/2022 4:39 PM SEWING TRIMMER): Repeat fasting blood glucose. Dyslipidemia 11/18/2018 Overview (11/12/2022): Images from the original note were not included. February 2022: Elevated triglycerides. Lipids 02/15/2022 11:09 AM CHOLESTEROL 297 TRIGLYCERIDES 446 HDL 57 LDL CALC CANCELED Assessment & Plan (11/12/2022 4:46 PM SEWING TRIMMER): No indication yet repeat lipid panel at [...] Monitoring Frequency of visits: 6 month Overseeing design and sales consultant: Dr. Back [facility] review/documentation:yes Urine drug screening requested?: no Urine screening frequency:other- not indicated 01/2024: Patient stated she is going to a doctor in [place] and does not wish to doctor in [place] because we are not going back to her current benzo dosing and regimen. Follow up as needed. Assessment & Plan (12/20/2023 12:32 PM CDT): Refer to anxiety generalized Disorder regarding clonazepam Assessment & Plan (04/15/2023 11:24 AM CDT): Please see assessment and plan for anxiety generalized disorder. Patient should be assessed by Psychiatry. Assessment & Plan (11/12/2022 4:45 PM SEWING TRIMMER): Please refer to anxiety assessment and plan [...] years. Assessment & Plan (09/16/2020 11:10 AM SEWING TRIMMER): - No changes to CSA. - 6 [...] FURTHER REFILLS (last visit was 12/2023 Overseeing design and sales consultant: [facility]Consultants. [facility] Urine drug screening requested?: [...] Good social support system with friends and yarsani. No red flags. 07/2023: PSY recs - no clonazepam change for now, f/u in six weeks to discuss taper. 12/2023: reduced to 0.25 qAM, 0.25 qPM 2-3 times per week. 01/2024: Patient stated she is going to a doctor in [place] and does not wish to doctor in [place] because we are not going back to [...] time. Assessment & Plan (11/12/2022 4:43 PM SEWING TRIMMER): Unfortunately, this is a difficult situation. The [...] instead. Assessment & Plan (11/12/2022 4:39 PM SEWING TRIMMER): Patient has been offered enrollment in low-dose [...] clonazepam Assessment & Plan (11/12/2022 4:46 PM SEWING TRIMMER): Please see psychiatry notes and the anxiety assessment and plan. Assessment & Plan (09/16/2020 11:10 AM SEWING TRIMMER): - Continue current medications. - 6 mo CSA recheck. Hypertension Essential Primary 05/18/2014 Overview (04/15/2023): 03/23/21: BP elevated in setting of multiple emotional stressors, PARLOR MAID return visit ordered in 1 month. 2021: [...] recheck. Assessment & Plan (11/12/2022 4:39 PM SEWING TRIMMER): Plan to increase amlodipine to 7.5 mg daily. Plan to not change losartan. Not due for any BMP monitoring. Encounters Date Type Department Care Team Description 05/05/2024 Orders Only RST SELF TEST ANTHONY [address] [place] [address] Asael Smith M.D. Screening Cancer Colon 04/21/2024 Orders Only RST SELF TEST ANTHONY [address] [place] [address] Asael Smith M.D. Screening Cancer Colon from Last 3 Months Immunizations Name Administration Dates Next Due PCV20 02/15/2022 PPSV23 08/12/2014 RZV (SHINGRIX) 11/12/2022,,02/15/2022(Deferre d: Patient decision - needs to check insurance) SARS-COV-2 (COVID-19) - MODE RNA (12 YEARS AND OLDER) [id number] 12/20/2023(Deferred: Patient decision) SARS-COV-2 (COVID-19) - PFIZ [...] drink = 0.6 oz pur e alcohol) [facility] Utilities Answer Date Recorded In the [...] often do you attend chur ch or rastafari services? 1 to 4 times per year 02/15/2022 Do you belong to any clubs o r organizations such as yarsani groups, unions, fraternal or athletic groups, or [...] your living situation today? I have a [facility] place to live 12/20/2023 Education Answer [...] 1960 Lung Cancer Screening 1960 Mammogram 1960 Tobacco Cessation counseling 04/15/2024 04/15/2023 Visit: Chronic Disease, age 18+ 04/15/2024 COVID-19 Vaccine (3 - 2022-2 4 season) 2024 01/13/2021, 12/20/2020 Influenza Vaccine (#1) 2024 11/12/2022, 2021 DTaP,Tdap,and [...] Basic Metabolic Panel (04/15/2023 8:27 AM CDT) [facility] Potassium, S 4.9 3.6 - 5.2 mmol/L [...] Oliveira, B.Lore., B.A.O. L AB BLOOD ADD-ON [facility] [address] [place] [address], [facility] DTL [facility] [address] [place] [address] * (ABNORMAL) Lipid Panel (02/15/2022 11:09 AM [...] Oliveira, B.Ch., B.A.O. L AB BLOOD ADD-ON [facility] [address] [place] [address], [facility] DTL [facility] [address] [place] [address] from Last 3 Months or Most Recently Relevant to Health Maintenance Care Teams Chief Order Dispatcher Relationship Specialty Start Date End Date Asael Smith M.D. [address] [place] [phone] PCP - General 04/06/24
--- NOTE | 2024-06-10 10:15 | CRLHL7_ITS ---
For Patients: As a result of the Century Cures Act, medical imaging exams and procedure reports are released immediately into your electronic medical record. You may view this report before your referring provider. If you have questions, please contact your health care provider. INDICATION: Headaches. TECHNIQUE: Sagittal T1 axial FLAIR T2 diffusion-weighted and susceptibility weighted images. FINDINGS: Ventricles normal in size and configuration. Mild prominence of convexity subarachnoid spaces due to mild volume loss. There is no evidence of acute ischemic infarction there no areas of diffusion restriction. There is no evidence of intracranial hemorrhage. There are no subdural fluid collections. There are [id number] small focal and confluent foci of FLAIR/T2 signal hyperintensity within the supratentorial white matter and right basal ganglia consistent with chronic small vessel ischemic disease. No focal lesion seen in the brainstem or cerebellum. The orbits sella and skull base are unremarkable. IMPRESSION: 1. No evidence of acute ischemic infarction, intracranial hemorrhage or mass. 2. Signal changes consistent with mild to moderate chronic small vessel ischemic change. Mild generalized volume loss. Dictated by Nic Brand MD @ 06/10/2024 12:42:27 PM (Electronically Signed)
== END 2024-06-10 09:45 | disposition home or self-care (01) ==
LOC: MRI 09:47
PROVIDERS: PCP Nurse Practitioner Family; Visit Provider Nurse Practitioner Family
DX: R51.9 Headache, unspecified (principal); I67.82 Cerebral ischemia
CPT/HCPCS: 70551

== ENCOUNTER 2024-06-15 10:27 | Outpatient (CLI) | payer OTHER, SELFPAY ==
--- OUTSIDE RECORDS SUMMARY | 2024-06-22 06:19 | XMS_ITS | Clinical Summary ---
Author Organization [facility] Address [place], [place] [address] Care Team Providers Care Hand Salter Name Role Phone Swati Higginbotham PRODUCTION ASSEMBLER Primary Care Provider [phone] Allergies Active Allergy Reactions Criticality Noted Date [...] Type Department Care Team Description 04/20/2024 Telephone [facility] [address] [address] Aydin Washington MD Medication Management 04/16/2024 Telephone [facility] [address] [place] [address] Aydin Washington MD Questions 03/26/2024 10:30 AM CDT Office Visit [facility] [address] [address] Aydin Washington MD from Last 3 Months [...] on patient's age to complete this topic Care Teams Hand Salter Relationship Specialty Start Date End Date Swati Higginbotham PRODUCTION ASSEMBLER [address] [place] [address] PCP - General 04/17/24
--- OUTSIDE RECORDS SUMMARY | 2024-06-22 06:19 | XMS_ITS | Clinical Summary ---
Author Organization [facility] Address [address] [place] [address] Care Team Providers Care Trip Follower Name Role Phone Asael Smith M.D. Primary Care Provider Source Comments Patient records contain information from all sites at [facility]. For routine questions regarding patient records, call [phone] during business hours, M-F 8:00 AM - 5:00 PM Central Time. Record requests for emergency care only can be directed to [phone] at any time.[facility] Allergies Active Allergy Reactions Criticality Noted Date [...] screening. Assessment & Plan (11/12/2022 4:47 PM COCOA ROOM OPERATOR): Patient open to receiving a Cologuard. Declines low-dose lung cancer screening. Must schedule mammogram. Impaired Fasting Glucose 11/18/2018 Overview (12/04/2022): 2020: Normal fasting glucose November 2022: Fasting blood glucose of 114. Repeat in 1 years time. She has a history of intermittent elevated fasting blood glucoses, the highest of which was 121. Assessment & Plan (11/12/2022 4:39 PM COCOA ROOM OPERATOR): Repeat fasting blood glucose. Dyslipidemia 11/18/2018 Overview (11/12/2022): Images from the original note were not included. February 2022: Elevated triglycerides. Lipids 02/15/2022 11:09 AM CHOLESTEROL 297 TRIGLYCERIDES 446 HDL 57 LDL CALC CANCELED Assessment & Plan (11/12/2022 4:46 PM COCOA ROOM OPERATOR): No indication yet repeat lipid panel at this time. We will plan to repeat in approximately 4 years, as part of her drug monitoring therapy. Monitoring For Therapeutic Drug Therapy 05/15/20 18 Overview (01/06/2024): Controlled Substance Prescribing Plan: Stimulants and Benzodiazepines This patient is expected to be on controlled substances prison. Diagnosis: Generalized anxiety disorder, bipolar disorder Previous [...] workforce management consultant: Dr. Back [facility] [employer] review/documentation:yes Urine drug screening requested?: no Urine screening frequency:other- not indicated 01/2024: Patient stated she is going to a doctor in [place] and does not wish to doctor in [place] because we are not going back to her current benzo dosing and regimen. Follow up as needed. Assessment & Plan (12/20/2023 12:32 PM CDT): Refer to anxiety generalized Disorder regarding clonazepam Assessment & Plan (04/15/2023 11:24 AM CDT): Please see assessment and plan for anxiety generalized disorder. Patient should be assessed by Psychiatry. Assessment & Plan (11/12/2022 4:45 PM COCOA ROOM OPERATOR): Please refer to anxiety assessment and plan [...] years. Assessment & Plan (09/16/2020 11:10 AM COCOA ROOM OPERATOR): - No changes to CSA. - 6 mo f/u Anxiety Generalized Disorder 01/14/2017 Overview (01/06/2024): Stable on: - Gabapentin 700 mg TID - Prozac 30 mg qd - Seroquel 300. - Klonopin 0.5 mg morning, 0.25 mg PRN 2-3 x a week. Controlled Substance Prescribing Plan: Stimulants and Benzodiazepines This patient is expected to be on controlled substances prison. Diagnosis: Generalized anxiety disorder, bipolar disorder Previous [...] was 12/2023 Overseeing workforce management consultant: PCP/Consultants. [facility] review/[facility]:yes Urine drug screening requested?: no Urine screening frequency:other- not indicated 11/2022: Patient requested a dose increase. Spoke with Dr. Chow and he advised against increasing clonazepam frequency. Plans to see patient on 11/23/2022. 04/15/2023: Patient did not show up to Psychiatry visit. No changes to her medication changes recently. Still is taking clonazepam regularly. Good social support system with friends and orthodox. No red flags. 07/2023: PSY recs - no clonazepam change for now, f/u in six weeks to discuss taper. 12/2023: reduced to 0.25 qAM, 0.25 qPM 2-3 times per week. 01/2024: Patient stated she is going to a doctor in [place] and does not wish to doctor in [place] because we are not going back to [...] time. Assessment & Plan (11/12/2022 4:43 PM COCOA ROOM OPERATOR): Unfortunately, this is a difficult situation. The [...] instead. Assessment & Plan (11/12/2022 4:39 PM COCOA ROOM OPERATOR): Patient has been offered enrollment in low-dose [...] clonazepam Assessment & Plan (11/12/2022 4:46 PM COCOA ROOM OPERATOR): Please see psychiatry notes and the anxiety assessment and plan. Assessment & Plan (09/16/2020 11:10 AM COCOA ROOM OPERATOR): - Continue current medications. - 6 mo CSA recheck. Hypertension Essential Primary 05/18/2014 Overview (04/15/2023): 03/23/21: BP elevated in setting of multiple emotional stressors, PROCUREMENT REPRESENTATIVE return visit ordered in 1 month. 2021: [...] recheck. Assessment & Plan (11/12/2022 4:39 PM COCOA ROOM OPERATOR): Plan to increase amlodipine to 7.5 mg daily. Plan to not change losartan. Not due for any BMP monitoring. Encounters Date Type Department Care Team Description 06/16/2024 Orders Only RST PCP HLTH MNT Asael Smith M.D. Screening Mammogram Breast Cancer 05/05/2024 Orders Only RST SELF TEST ANTHONY [address] [place] [phone] Asael Smith M.D. Screening Cancer Colon 04/21/2024 Orders Only RST SELF TEST ANTHONY [address] [place] [phone] Asael Smith M.D. Screening Cancer Colon from Last 3 Months Immunizations Name Administration Dates Next Due PCV20 02/15/2022 PPSV23 08/12/2014 RZV (SHINGRIX) 11/12/2022,,02/15/2022(Deferre d: Patient decision - needs to check insurance) SARS-COV-2 (COVID-19) - MODE RNA (12 YEARS AND OLDER) [id number] 12/20/2023(Deferred: Patient decision) SARS-COV-2 (COVID-19) - PFIZ [...] drink = 0.6 oz pur e alcohol) [facility] Utilities Answer Date Recorded In the past 12 months has [employer], gas, oil, or water [employer] threatened to shut off services in your [...] week 02/15/2022 How often do you attend [facility] or yazdanism services? 1 to 4 times per year [...] living situation today? I have a [facility] place to live 12/20/2023 Education Answer [...] Oliveira, B.Lore., B.A.O. L AB BLOOD ADD-ON [facility] [address] [place] [address], [facility] [address] [place] [address] * (ABNORMAL) Lipid Panel (02/15/2022 11:09 AM [...] Oliveira, B.Lore., B.A.O. L AB BLOOD ADD-ON [facility] [address] [place] [address], [facility] [address] [place] [address] from Last 3 Months or Most Recently Relevant to Health Maintenance Care Teams Trip Follower Relationship Specialty Start Date End Date Asael Smith M.D. [address] [place] [phone] PCP - General 04/06/24
--- OUTSIDE RECORDS SUMMARY | 2024-06-22 06:19 | XMS_ITS | Encounter Summary ---
Author Organization [facility] Address [address] [place] [address] Care Team Providers Care Funeral Greeter Name Role Phone Asael Smith M.D. Primary Care Provider Reason for Referral * Outpatient (Routine) - Authorized Specialty Diagnoses / Procedures Referred By Mariah saldivar Referred To Contact Diagnoses Screening Mammogram Breast Cancer Procedures BI Breast Screening Bilateral with Tomosynthesis Asael Smith M.D. [address] [place] [address] [facility] Referral ID Status Reason Start Date Expiration Date V isits Requested Visits Authorized [id number] Authorized 06/16/2024 06/16/2025 1 1 Encounter Details Date Type Department Care Team (Late st Contact Info) Description 06/16/2024 Orders Only RST PCP HLTH MNT Asael Smith M.D. [address] [place] [address] Screening Mammogram Breast Cancer Social History Tobacco Use Types Packs/Day Years Used Date Smoking Tobacco: Every Day Cigarettes 1 48.9 Started: 08/08/1975 Passive Smoke Exposure: Current Smokeless Tobacco: Never Alcohol Use Standard Drinks/Week Comments Never 0 (1 standard drink = 0.6 oz pur e alcohol) [facility] Utilities Answer Date Recorded In the past 12 months has [employer], gas, oil, or water company threatened [...] week 02/15/2022 How often do you attend [facility] or congregational services? 1 to 4 times per year 02/15/2022 Do you belong to any clubs o r organizations such as sikh groups, unions, fraternal or athletic groups, or [...] Answer Date Recorded PHQ-2 Score 0 12/20/2023 [facility] of Occupat ional Health - Occupational Stress [...] your living situation today? I have a [facility] place to live 12/20/2023 Education [...] Scheduled Orders Name Type Priority Associated Diagnoses Order Schedule BI Breast Screening Bilateral with Tomosynthesis Imaging RAD - Routine (most inpatients and all outpatients) Screening Mammogram Breast Cancer Expected: 07/16/2024, Expires: 12/13/2024 documented as of this encounter Visit Diagnoses Diagnosis Screening Mammogram Breast Cancer documented in this encounter Additional Health Concerns Assessment Noted Time PHQ-9 Depression Total Score: 0 12/20/19 8:24 AM CDT documented as of this encounter Care Teams Funeral Greeter Relationship Specialty Start Date End Date Asael Smith M.D. [address] [place] [address] PCP - General 04/06/24 documented as of this encounter
--- OUTSIDE RECORDS SUMMARY | 2024-06-22 06:19 | XMS_ITS | Encounter Summary ---
Author Organization [facility] Address [address] [place] [address] Care Team Providers Care Health Information Administrator Name Role Phone Asael Smith M.D. Primary Care Provider Encounter Details Date Type Department Care Team (Late st Contact Info) Description 04/21/2024 Orders Only RST SELF TEST ANTHONY [address] [place] [address] Asael Smith M.D. [address] [place] [address] Screening Cancer Colon Social History Tobacco Use Types Packs/Day Years Used Date Smoking Tobacco: Every Day Cigarettes 1 48.9 Started: 08/08/1975 Passive Smoke Exposure: Current Smokeless Tobacco: Never Alcohol Use Standard Drinks/Week Comments Never 0 (1 standard drink = 0.6 oz pur e alcohol) [facility] Utilities Answer Date Recorded In the past 12 months has [facility] [employer], gas, oil, or water [facility] threatened to shut off services in your [...] How often do you attend chur or episcopalian services? 1 to 4 times per year [...] Answer Date Recorded PHQ-2 Score 0 12/20/2023 [facility] of Occupat ional Health - Occupational [...] your living situation today? I have a [facility] place to live 12/20/2023 Education Answer [...] documented as of this encounter Care Teams Health Information Administrator Relationship Specialty Start Date End Date Asael Smith M.D. NPElena: [phone] [address] [place] [address] PCP - General 04/06/24 documented as of this encounter
--- OUTSIDE RECORDS SUMMARY | 2024-06-22 06:19 | XMS_ITS ---
Author Organization [facility] Address [address] [place] [address] Care Team Providers Care Agriculture Sales Account Manager Name Role Phone Unavailable Unavailable Unavailable Surgery Details Not on file Complications Check Surgery Details section. Procedure Estimated Blood Loss Check Surgery Details section. Procedure Findings Check Surgery Details section. Procedure Specimens Taken Check Surgery Details section.
--- OUTSIDE RECORDS SUMMARY | 2024-06-22 06:19 | XMS_ITS | Encounter Summary ---
Author Organization [facility] Address [address] [place] [address] Care Team Providers Care Rides Attendant Name Role Phone Asael Smith M.D. Primary Care Provider Encounter Details Date Type Department Care Team (Late st Contact Info) Description 05/05/2024 Orders Only RST SELF TEST ANTHONY [address] [place] [address] Asael Smith M.D. [address] [place] [address] Screening Cancer Colon Social History Tobacco Use Types Packs/Day Years Used Date Smoking Tobacco: Every Day Cigarettes 1 48.9 Started: 08/08/1975 Passive Smoke Exposure: Current Smokeless Tobacco: Never Alcohol Use Standard Drinks/Week Comments Never 0 (1 standard drink = 0.6 oz pur e alcohol) [facility] Utilities Answer Date Recorded In the past 12 months has [facility] [employer], gas, oil, or water [employer] threatened to shut off services in your [...] How often do you attend chur or cheondoism services? 1 to 4 times per year [...] your living situation today? I have a [facility] place to live 12/20/2023 Education [...] documented as of this encounter Care Teams Rides Attendant Relationship Specialty Start Date End Date Asael Smith M.D. [address] [place] [address] PCP - General 04/06/24 documented as of this encounter
--- OUTSIDE RECORDS SUMMARY | 2024-06-22 06:19 | XMS_ITS | Referral Summary ---
Author Organization [facility] Address [address] [place] [address] Care Team Providers Care Pantry Chef Name Role Phone Aasel Smith M.D. Primary Care Provider Source Comments Patient records contain information from all sites at [facility]. For routine questions regarding patient records, call [phone] during business hours, M-F 8:00 AM - 5:00 PM Central Time. Record requests for emergency care only can be directed to [phone] at any time.[facility] Encounters Date Type Department Care Team Description 06/16/2024 Orders Only RST PCP HLTH MNT Asael Smith M.D. Screening Mammogram Breast Cancer 05/05/2024 Orders Only RST SELF TEST ANTHONY [address] [place] [phone] Asael Smith M.D. Screening Cancer Colon 04/21/2024 Orders Only RST SELF TEST ANTHONY [address] [place] [phone] Asael Smith M.D. Screening Cancer Colon from [...] screening. Assessment & Plan (11/12/2022 4:47 PM SEAFOOD CLERK): Patient open to receiving a Cologuard. Declines low-dose lung cancer screening. Must schedule mammogram. Impaired Fasting Glucose 11/18/2018 Overview (12/04/2022): 2020: Normal fasting glucose November 2022: Fasting blood glucose of 114. Repeat in 1 years time. She has a history of intermittent elevated fasting blood glucoses, the highest of which was 121. Assessment & Plan (11/12/2022 4:39 PM SEAFOOD CLERK): Repeat fasting blood glucose. Dyslipidemia 11/18/2018 Overview (11/12/2022): Images from the original note were not included. February 2022: Elevated triglycerides. Lipids 02/15/2022 11:09 AM CHOLESTEROL 297 TRIGLYCERIDES 446 HDL 57 LDL CALC CANCELED Assessment & Plan (11/12/2022 4:46 PM SEAFOOD CLERK): No indication yet repeat lipid panel at this time. We will plan to repeat in approximately 4 years, as part of her drug monitoring therapy. 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 Diagnosis: Generalized anxiety disorder, bipolar disorder [...] Monitoring Frequency of visits: 6 month Overseeing platform consultant: Dr. Back and Consultants [facility] review/documentation:yes Urine drug screening requested?: no Urine screening frequency:other- not indicated 01/2024: Patient stated she is going to a doctor in [place] and does not wish to doctor in [place] because we are not going back to her current benzo dosing and regimen. Follow up as needed. Assessment & Plan (12/20/2023 12:32 PM CDT): Refer to anxiety generalized Disorder regarding clonazepam Assessment & Plan (04/15/2023 11:24 AM CDT): Please see assessment and plan for anxiety generalized disorder. Patient should be assessed by Psychiatry. Assessment & Plan (11/12/2022 4:45 PM SEAFOOD CLERK): Please refer to anxiety assessment and plan [...] years. Assessment & Plan (09/16/2020 11:10 AM SEAFOOD CLERK): - No changes to CSA. - 6 mo f/u Anxiety Generalized Disorder 01/14/2017 Overview (01/06/2024): Stable on: - Gabapentin 700 mg TID - Prozac 30 mg qd - Seroquel 300. - Klonopin 0.5 mg morning, 0.25 mg PRN 2-3 x a week. 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 Diagnosis: Generalized anxiety disorder, bipolar disorder [...] FURTHER REFILLS (last visit was 12/2023 Overseeing platform consultant: PCP/Consultants. [facility] review/documentation:yes Urine drug screening [...] she is going to a doctor in [place] and does not wish to doctor in [place] because we are not going back to [...] time. Assessment & Plan (11/12/2022 4:43 PM SEAFOOD CLERK): Unfortunately, this is a difficult situation. The [...] instead. Assessment & Plan (11/12/2022 4:39 PM SEAFOOD CLERK): Patient has been offered enrollment in low-dose [...] clonazepam Assessment & Plan (11/12/2022 4:46 PM SEAFOOD CLERK): Please see psychiatry notes and the anxiety assessment and plan. Assessment & Plan (09/16/2020 11:10 AM SEAFOOD CLERK): - Continue current medications. - 6 mo CSA recheck. Hypertension Essential Primary 05/18/2014 Overview (04/15/2023): 03/23/21: BP elevated in setting of multiple emotional stressors, HR SHARED SERVICES CONSULTANT return visit ordered in 1 month. [...] recheck. Assessment & Plan (11/12/2022 4:39 PM SEAFOOD CLERK): Plan to increase amlodipine to 7.5 mg daily. Plan to not change losartan. Not due for any BMP monitoring. Immunizations Name Administration Dates Next Due PCV20 02/15/2022 PPSV23 08/12/2014 RZV (SHINGRIX) 11/12/2022,,02/15/2022(Deferre d: Patient decision - needs to check insurance) SARS-COV-2 (COVID-19) - MODE RNA (12 YEARS AND OLDER) [id number] 12/20/2023(Deferred: Patient decision) SARS-COV-2 (COVID-19) - PFIZ [...] drink = 0.6 oz pur e alcohol) [facility] Utilities Answer Date Recorded In the [...] often do you attend chur ch or quaker services? 1 to 4 times [...] Oliveira, B.Lore., B.A.O. L AB BLOOD ADD-ON [facility] [address] [place] [address], [facility] [address] [place] [address] * (ABNORMAL) Lipid Panel (02/15/2022 11:09 AM [...] Oliveira, B.Lore., B.A.O. L AB BLOOD ADD-ON [facility] [address] [place] [address], [facility] [address] [place] [address] from Last 3 Months or Most Recently Relevant to Health Maintenance Care Teams Pantry Chef Relationship Specialty Start Date End Date Asael Smith M.D. [address] [place] [phone] PCP - General 04/06/24
== END 2024-06-15 10:28 | disposition home or self-care (01) ==
LOC: NFLDREF 06-22 06:18
PROVIDERS: PCP Nurse Practitioner Family; Referring Provider Nurse Practitioner Family; Visit Provider Nurse Practitioner Family
DX: Z79.01 Long term (current) use of anticoagulants (principal)
CPT/HCPCS: 85610

== ENCOUNTER 2024-06-30 10:05 | Outpatient (CLI) | payer OTHER, SELFPAY ==
--- OUTSIDE RECORDS SUMMARY | 2024-07-04 20:20 | XMS_ITS ---
Author Organization [facility] Address [address] [place] [address] Care Team Providers Care Hand Thermal Cutter Name Role Phone Unavailable Unavailable Unavailable Surgery Details Not on file Complications Check Surgery Details section. Procedure Estimated Blood Loss Check Surgery Details section. Procedure Findings Check Surgery Details section. Procedure Specimens Taken Check Surgery Details section.
--- OUTSIDE RECORDS SUMMARY | 2024-07-04 20:20 | XMS_ITS | Clinical Summary ---
Author Organization [facility] Address [address] [place] [address] Care Team Providers Care Classified Advertising Supervisor Name Role Phone Asael Smith M.D. Primary Care Provider Source Comments Patient records contain information from all sites at [facility]. For routine questions regarding patient records, call [phone] during business hours, M-F 8:00 AM - 5:00 PM Central Time. Record requests for emergency care only can be directed to [phone] at any time.[facility] Allergies Active Allergy Reactions Criticality Noted Date [...] screening. Assessment & Plan (11/12/2022 4:47 PM WEIGHTER): Patient open to receiving a Cologuard. Declines low-dose lung cancer screening. Must schedule mammogram. Impaired Fasting Glucose 11/18/2018 Overview (12/04/2022): 2020: Normal fasting glucose November 2022: Fasting blood glucose of 114. Repeat in 1 years time. She has a history of intermittent elevated fasting blood glucoses, the highest of which was 121. Assessment & Plan (11/12/2022 4:39 PM WEIGHTER): Repeat fasting blood glucose. Dyslipidemia 11/18/2018 Overview (11/12/2022): Images from the original note were not included. February 2022: Elevated triglycerides. Lipids 02/15/2022 11:09 AM CHOLESTEROL 297 TRIGLYCERIDES 446 HDL 57 LDL CALC CANCELED Assessment & Plan (11/12/2022 4:46 PM WEIGHTER): No indication yet repeat lipid panel at this time. We will plan to repeat in approximately 4 years, as part of her drug monitoring therapy. Monitoring For Therapeutic Drug Therapy 05/15/20 18 Overview (01/06/2024): Controlled Substance Prescribing Plan: Stimulants and Benzodiazepines This patient is expected to be on controlled substances [facility]. Diagnosis: Generalized anxiety disorder, bipolar disorder Previous [...] Monitoring Frequency of visits: 6 month Overseeing rural health consultant: Dr. Back and Consultants [facility] review/documentation:yes Urine drug screening requested?: no Urine screening frequency:other- not indicated 01/2024: Patient stated she is going to a doctor in [place] and does not wish to doctor in [place] because we are not going back to her current benzo dosing and regimen. Follow up as needed. Assessment & Plan (12/20/2023 12:32 PM CDT): Refer to anxiety generalized Disorder regarding clonazepam Assessment & Plan (04/15/2023 11:24 AM CDT): Please see assessment and plan for anxiety generalized disorder. Patient should be assessed by Psychiatry. Assessment & Plan (11/12/2022 4:45 PM WEIGHTER): Please refer to anxiety assessment and plan [...] years. Assessment & Plan (09/16/2020 11:10 AM WEIGHTER): - No changes to CSA. - 6 mo f/u Anxiety Generalized Disorder 01/14/2017 Overview (01/06/2024): Stable on: - Gabapentin 700 mg TID - Prozac 30 mg qd - Seroquel 300. - Klonopin 0.5 mg morning, 0.25 mg PRN 2-3 x a week. Controlled Substance Prescribing Plan: Stimulants and Benzodiazepines This patient is expected to be on controlled substances [place] [facility]. Diagnosis: Generalized anxiety disorder, bipolar disorder Previous [...] FURTHER REFILLS (last visit was 12/2023 Overseeing rural health consultant: PCP[facility]Consultants. [facility] review[facility]documentation:yes Urine drug screening requested?: no Urine screening frequency:other- not indicated 11/2022: Patient requested a dose increase. Spoke with Dr. Chow and he advised against increasing clonazepam frequency. Plans to see patient on 11/23/2022. 04/15/2023: Patient did not show up to Psychiatry visit. No changes to her medication changes recently. Still is taking clonazepam regularly. Good social support system with friends and zoroastrianism. No red flags. 07/2023: PSY recs - no clonazepam change for now, f/u in six weeks to discuss taper. 12/2023: reduced to 0.25 qAM, 0.25 qPM 2-3 times per week. 01/2024: Patient stated she is going to a doctor in [place] and does not wish to doctor in [place] because we are not going back to [...] time. Assessment & Plan (11/12/2022 4:43 PM WEIGHTER): Unfortunately, this is a difficult situation. The [...] instead. Assessment & Plan (11/12/2022 4:39 PM WEIGHTER): Patient has been offered enrollment in low-dose [...] clonazepam Assessment & Plan (11/12/2022 4:46 PM WEIGHTER): Please see psychiatry notes and the anxiety assessment and plan. Assessment & Plan (09/16/2020 11:10 AM WEIGHTER): - Continue current medications. - 6 mo CSA recheck. Hypertension Essential Primary 05/18/2014 Overview (04/15/2023): 03/23/21: BP elevated in setting of multiple emotional stressors, ANALYTICAL STATISTICIAN return visit ordered in 1 month. 2021: [...] recheck. Assessment & Plan (11/12/2022 4:39 PM WEIGHTER): Plan to increase amlodipine to 7.5 mg daily. Plan to not change losartan. Not due for any BMP monitoring. Encounters Date Type Department Care Team Description 06/16/2024 Orders Only RST PCP HLTH MNT Asael Smith M.D. Screening Mammogram Breast Cancer 05/05/2024 Orders Only RST SELF TEST ANTHONY [address] [place] [phone] Aseal Smith M.D. Screening Cancer Colon 04/21/2024 Orders Only RST SELF TEST ANTHONY [address] [place] [phone] Asael Smith M.D. Screening Cancer Colon from Last 3 Months Immunizations Name Administration Dates Next Due PCV20 02/15/2022 PPSV23 08/12/2014 RZV (SHINGRIX) 11/12/2022,,02/15/2022(Deferre d: Patient decision - needs to check insurance) SARS-COV-2 (COVID-19) - MODE RNA (12 YEARS AND OLDER) [id number] 12/20/2023(Deferred: Patient decision) SARS-COV-2 (COVID-19) - PFIZ [...] drink = 0.6 oz pur e alcohol) [facility] Utilities Answer Date Recorded In the past 12 months has e [employer], gas, oil, or water [employer] threatened to shut off services in your [...] week 02/15/2022 How often do you attend [facility] or catholic services? 1 to 4 times per year 02/15/2022 Do you belong to any clubs o r organizations such as zoroastrianism groups, unions, fraternal or athletic groups, or [...] Answer Date Recorded PHQ-2 Score 0 12/20/2023 [facility] - [...] age 18+ 04/15/2024 COVID-19 Vaccine (3 - 2023-2 5 season) 2024 01/13/2021, 12/20/2020 Influenza Vaccine (#1) [...] Oliveira, B.Lore., B.A.O. L AB BLOOD ADD-ON [facility] [address] [place] [address], [facility] [address] [place] [address] * (ABNORMAL) Lipid Panel (02/15/2022 11:09 AM CDT) Pathologist [facility] Cholesterol, Total 297(H) mg/dL 2021 3:37 [...] Oliveira, B.Lore., B.A.O. L AB BLOOD ADD-ON [facility] [address] [place] [address], [facility] [address] [place] [address] from Last 3 Months or Most Recently Relevant to Health Maintenance Care Teams Classified Advertising Supervisor Relationship Specialty Start Date End Date Asael Smith M.D. [address] [place] [phone] PCP - General 04/06/24
--- OUTSIDE RECORDS SUMMARY | 2024-07-04 20:20 | XMS_ITS | Encounter Summary ---
Author Organization [facility] Address [address] [place] [address] Care Team Providers Care Helper Marble Finisher Name Role Phone Asael Smith M.D. Primary Care Provider Encounter Details Date Type Department Care Team (Late st Contact Info) Description 04/21/2024 Orders Only RST SELF TEST ANTHONY [address] [place] [phone] Asael Smith M.D. [address] [place] [address] Screening Cancer Colon Social History Tobacco Use Types Packs/Day Years Used Date Smoking Tobacco: Every Day Cigarettes 1 48.9 Started: 08/08/1975 Passive Smoke Exposure: Current Smokeless Tobacco: Never Alcohol Use Standard Drinks/Week Comments Never 0 (1 standard drink = 0.6 oz pur e alcohol) [facility] Utilities Answer Date Recorded In the past 12 months has [facility] [employer], gas, oil, or water [employer] threatened to shut off services in your [...] How often do you attend chur or judaism services? 1 to 4 times per year 02/15/2022 Do you belong to any clubs o r organizations such as hindu groups, unions, fraternal or athletic groups, or [...] Answer Date Recorded PHQ-2 Score 0 12/20/2023 [facility] Occupat ional [facility] - Occupational [...] your living situation today? I have a [facility] place to live 12/20/2023 Education Answer [...] documented as of this encounter Care Teams Helper Marble Finisher Relationship Specialty Start Date End Date Asael Smith M.D. NPElena: [phone] [address] [place] [address] PCP - General 04/06/24 documented as of this encounter
--- OUTSIDE RECORDS SUMMARY | 2024-07-04 20:20 | XMS_ITS | Encounter Summary ---
Author Organization [facility] Address [address] [place] [address] Care Team Providers Care Over The Horizon Targeting Supervisor Name Role Phone Asael Smith M.D. Primary Care Provider Reason for Referral * Outpatient (Routine) - Authorized Specialty Diagnoses / Procedures Referred By Mariah saldivar Referred To Contact Diagnoses Screening Mammogram Breast Cancer Procedures BI Breast Screening Bilateral with Tomosynthesis Asael Smith M.D. [address] [place] [address] [facility] Referral ID Status Reason Start Date Expiration Date V isits Requested Visits Authorized [id number] Authorized 06/16/2024 06/16/2025 1 1 Encounter Details Date Type Department Care Team (Late st Contact Info) Description 06/16/2024 Orders Only RST PCP HLTH MNT Asael Smith M.D. [address] [place] [address] Screening Mammogram Breast Cancer Social History Tobacco Use Types Packs/Day Years Used Date Smoking Tobacco: Every Day Cigarettes 1 48.9 Started: 08/08/1975 Passive Smoke Exposure: Current Smokeless Tobacco: Never Alcohol Use Standard Drinks/Week Comments Never 0 (1 standard drink = 0.6 oz pur e alcohol) [facility] Utilities Answer Date Recorded In the past 12 months has [employer], gas, oil, or water company threatened [...] week 02/15/2022 How often do you attend [facility] or taoist services? 1 to 4 times per year 02/15/2022 Do you belong to any clubs o r organizations such as druze groups, unions, fraternal or athletic groups, or [...] Answer Date Recorded PHQ-2 Score 0 12/20/2023 [facility] [place] of Occupat ional Health - Occupational Stress [...] living situation today? I have a [facility] place to live 12/20/2023 Education Answer Date [...] documented as of this encounter Care Teams Over The Horizon Targeting Supervisor Relationship Specialty Start Date End Date Asael Smith M.D. [address] [place] [address] PCP - General 04/06/24 documented as of this encounter
--- OUTSIDE RECORDS SUMMARY | 2024-07-04 20:20 | XMS_ITS | Encounter Summary ---
Author Organization [facility] Address [address] [place] [address] Care Team Providers Care Student Support Services Director Name Role Phone Asael Smith M.D. Primary Care Provider Encounter Details Date Type Department Care Team (Late st Contact Info) Description 05/05/2024 Orders Only RST SELF TEST ANTHONY [address] [place] [address] Asael Smith M.D. [address] [place] [address] Screening Cancer Colon Social History Tobacco Use Types Packs/Day Years Used Date Smoking Tobacco: Every Day Cigarettes 1 48.9 Started: 08/08/1975 Passive Smoke Exposure: Current Smokeless Tobacco: Never Alcohol Use Standard Drinks/Week Comments Never 0 (1 standard drink = 0.6 oz pur e alcohol) [facility] Utilities Answer Date Recorded In the past 12 months has [facility] [employer], gas, oil, or water [employer] threatened to shut off services in your [...] How often do you attend chur or congregation services? 1 to 4 times per year 02/15/2022 Do you belong to any clubs o r organizations such as jewish groups, unions, fraternal or athletic groups, or [...] Answer Date Recorded PHQ-2 Score 0 12/20/2023 [facility] of Occupat ional Health - Occupational Stress [...] your living situation today? I have a [employer] place to live 12/20/2023 Education Answer Date [...] documented as of this encounter Care Teams Student Support Services Director Relationship Specialty Start Date End Date Asael Smith M.D. [address] [place] [address] PCP - General 04/06/24 documented as of this encounter
--- OUTSIDE RECORDS SUMMARY | 2024-07-04 20:20 | XMS_ITS | Clinical Summary ---
Author Organization [facility] Address [place], [place] [address] Care Team Providers Care Charcoal Burner Beehive Kiln Name Role Phone Swati Higginbotham BEAMER HELPER Primary Care Provider [phone] Allergies Active Allergy Reactions Criticality Noted Date Comments Pollen Extracts Runny Nose,Other - Describe In Comment Field 02/26/2022 Sneezing, runny eyes Medications Medication Sig [...] tongue every 8 hours if needed for Nausea/Vomiti ng. 20 Tablet 02/22/2024 Active metoprolol succinate (Toprol [...] mcg) by mouth once daily. 03/26/2024 Active warfarin (COUMADIN) 2 mg tablet As directed once daily. 06/15/2024 Active warfarin (COUMADIN) 3 mg tablet Take 3 mg by mouth. 05/18/2024 Active apixaban (Eliquis) 5 mg tabletIndications:Pe rsistent atrial fibrillation (HC) Take 1 Tablet (5 mg) by mouth two times daily. 60 Tablet 3 03/26/2024 4 Discontinued (Other - add note to specify (E-cancel not sent)) Encounters Date Type Department Care Team Description 06/22/[address] [address] Aydin Washington MD 04/20/[address] [address] Aydin Washington MD Medication Management 04/16/2024 Telephone [facility] [address] [place] [address] Aydin Washington MD Questions from Last 3 Months Social History Tobacco [...] 02/22/2024 11:21 AM CDT Plan of Treatment Upcoming Encounters Date Type Department Care Team (Late st Contact Info) Description 07/06/2024 12:00 PM CDT Appointment [facility] [address] [place] [address] Miguel A Vargas CRNA [address] [place] [address] [place] [address] [place] [address] 07/06/2024 1:30 PM CDT Hospital Encounter [facility] [address] [place] [address] Aydin Washington MD [address] [place] [address] Health Maintenance Due Date Last Done Comments [...] (1 of 2) 2010 COVID-19 vaccine series (2023- season) 2024 01/13/2021, 12/20/2020 Influenza for age 50-64 06/07/2024 Pneumococcal series for age 6-64 Aged Out No longer eligible b ased on patient's age to complete this topic Care Teams Charcoal Burner Beehive Kiln Relationship Specialty Start Date End Date Swati Higginbotham, BEAMER HELPER [address] [place] [id number] PCP - General 04/17/24
--- OUTSIDE RECORDS SUMMARY | 2024-07-04 20:20 | XMS_ITS | Referral Summary ---
Author Organization [facility] Address [address] [place] [address] Care Team Providers Care Vegetable Farmworker Name Role Phone Asael Smith M.D. Primary Care Provider Source Comments Patient records contain information from all sites at [facility]. For routine questions regarding patient records, call [phone] during business hours, M-F 8:00 AM - 5:00 PM Central Time. Record requests for emergency care only can be directed to [phone] at any time.[facility] Encounters Date Type Department Care Team Description 06/16/2024 Orders Only RST PCP HLTH MNT Asael Smith M.D. Screening Mammogram Breast Cancer 05/05/2024 Orders Only RST SELF TEST ANTHONY [address] [place] [phone] Asael Smith M.D. Screening Cancer Colon 04/21/2024 Orders Only RST SELF TEST ANTHONY [address] [place] [phone] Asael Smith M.D. Screening Cancer Colon from [...] screening. Assessment & Plan (11/12/2022 4:47 PM COTTON BAG CLIPPER): Patient open to receiving a Cologuard. Declines low-dose lung cancer screening. Must schedule mammogram. Impaired Fasting Glucose 11/18/2018 Overview (12/04/2022): 2020: Normal fasting glucose November 2022: Fasting blood glucose of 114. Repeat in 1 years time. She has a history of intermittent elevated fasting blood glucoses, the highest of which was 121. Assessment & Plan (11/12/2022 4:39 PM COTTON BAG CLIPPER): Repeat fasting blood glucose. Dyslipidemia 11/18/2018 Overview (11/12/2022): Images from the original note were not included. February 2022: Elevated triglycerides. Lipids 02/15/2022 11:09 AM CHOLESTEROL 297 TRIGLYCERIDES 446 HDL 57 LDL CALC CANCELED Assessment & Plan (11/12/2022 4:46 PM COTTON BAG CLIPPER): No indication yet repeat lipid panel at this time. We will plan to repeat in approximately 4 years, as part of her drug monitoring therapy. 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 Diagnosis: Generalized anxiety disorder, bipolar disorder Previous [...] Monitoring Frequency of visits: 6 month Overseeing leasing sales consultant: Dr. Back and Consultants [facility] review/documentation:yes Urine drug screening requested?: no Urine screening frequency:other- not indicated 01/2024: Patient stated she is going to a doctor in [place] and does not wish to doctor in [place] because we are not going back to her current benzo dosing and regimen. Follow up as needed. Assessment & Plan (12/20/2023 12:32 PM CDT): Refer to anxiety generalized Disorder regarding clonazepam Assessment & Plan (04/15/2023 11:24 AM CDT): Please see assessment and plan for anxiety generalized disorder. Patient should be assessed by Psychiatry. Assessment & Plan (11/12/2022 4:45 PM COTTON BAG CLIPPER): Please refer to anxiety assessment and plan [...] years. Assessment & Plan (09/16/2020 11:10 AM COTTON BAG CLIPPER): - No changes to CSA. - 6 mo f/u Anxiety Generalized Disorder 01/14/2017 Overview (01/06/2024): Stable on: - Gabapentin 700 mg TID - Prozac 30 mg qd - Seroquel 300. - Klonopin 0.5 mg morning, 0.25 mg PRN 2-3 x a week. 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 Diagnosis: Generalized anxiety disorder, bipolar disorder Previous [...] FURTHER REFILLS (last visit was 12/2023 Overseeing leasing sales consultant: PCP/Consultants. [facility] review/documentation:yes Urine drug screening [...] Good social support system with friends and mormonism. No red flags. 07/2023: PSY recs - no clonazepam change for now, f/u in six weeks to discuss taper. 12/2023: reduced to 0.25 qAM, 0.25 qPM 2-3 times per week. 01/2024: Patient stated she is going to a doctor in [place] and does not wish to doctor in [place] because we are not going back to [...] time. Assessment & Plan (11/12/2022 4:43 PM COTTON BAG CLIPPER): Unfortunately, this is a difficult situation. The [...] instead. Assessment & Plan (11/12/2022 4:39 PM COTTON BAG CLIPPER): Patient has been offered enrollment in low-dose [...] clonazepam Assessment & Plan (11/12/2022 4:46 PM COTTON BAG CLIPPER): Please see psychiatry notes and the anxiety assessment and plan. Assessment & Plan (09/16/2020 11:10 AM COTTON BAG CLIPPER): - Continue current medications. - 6 mo CSA recheck. Hypertension Essential Primary 05/18/2014 Overview (04/15/2023): 03/23/21: BP elevated in setting of multiple emotional stressors, DAY SPA MANAGER return visit ordered in 1 month. [...] recheck. Assessment & Plan (11/12/2022 4:39 PM COTTON BAG CLIPPER): Plan to increase amlodipine to 7.5 mg daily. Plan to not change losartan. Not due for any BMP monitoring. Immunizations Name Administration Dates Next Due PCV20 02/15/2022 PPSV23 08/12/2014 RZV (SHINGRIX) 11/12/2022,,02/15/2022(Deferre d: Patient decision - needs to check insurance) SARS-COV-2 (COVID-19) - MODE RNA (12 YEARS AND OLDER) [id number] 12/20/2023(Deferred: Patient decision) SARS-COV-2 (COVID-19) - PFIZ [...] any clubs o r organizations such as mormonism groups, unions, fraternal or athletic groups, or [...] Answer Date Recorded PHQ-2 Score 0 12/20/2023 [facility] - Occupational [...] L AB BLOOD ADD-ON [facility] [address] [place] [address], [facility] [address] [place] [address] * (ABNORMAL) Lipid Panel (02/15/2022 11:09 AM CDT) Pathologist [facility] Cholesterol, Total 297(H) mg/dL 2021 3:37 PM [...] BLOOD ADD-ON [facility] [address] [place] [address], [facility] [address] [place] [address] from Last 3 Months or Most Recently Relevant to Health Maintenance Care Teams Vegetable Farmworker Relationship Specialty Start Date End Date Asael Smith M.D. [address] [place] [phone] PCP - General 04/06/24
== END 2024-06-30 10:06 | disposition home or self-care (01) ==
LOC: NFLDREF 07-04 20:18
PROVIDERS: PCP Nurse Practitioner Family; Referring Provider Nurse Practitioner Family; Visit Provider Internal Medicine Cardiovascular Disease
DX: I48.19 Other persistent atrial fibrillation (principal); Z79.01 Long term (current) use of anticoagulants
CPT/HCPCS: 85610

== ENCOUNTER 2024-09-15 10:26 | Outpatient (CLI) | payer OTHER, SELFPAY | END 2024-09-15 10:27 | disposition home or self-care (01) | LOC: NFLDREF 09-17 13:33 | PROVIDERS: PCP Nurse Practitioner Family; Referring Provider Nurse Practitioner Family; Visit Provider Nurse Practitioner Family | DX: I48.91 Unspecified atrial fibrillation (principal); Z79.01 Long term (current) use of anticoagulants | CPT/HCPCS: 85610 ==

== ENCOUNTER 2024-10-29 10:32 | Outpatient (CLI) | payer OTHER, SELFPAY | END 2024-10-29 10:33 | disposition home or self-care (01) | LOC: NFLDREF 11-08 23:37 | PROVIDERS: PCP Nurse Practitioner Family; Referring Provider Nurse Practitioner Family; Visit Provider Nurse Practitioner Family | DX: I48.91 Unspecified atrial fibrillation (principal); Z79.01 Long term (current) use of anticoagulants | CPT/HCPCS: 85610 ==

== ENCOUNTER 2024-11-06 12:42 | Outpatient (CLI) | payer OTHER, SELFPAY | END 2024-11-06 12:43 | disposition home or self-care (01) | PROVIDERS: PCP Nurse Practitioner Family; Visit Provider Nurse Practitioner Family | DX: I10 Essential (primary) hypertension (principal); R53.1 Weakness; I48.91 Unspecified atrial fibrillation | CPT/HCPCS: 80053; 83735; 84443; 84484; 85025 ==

== ENCOUNTER 2024-11-09 15:34 | Emergency (ER) | payer OTHER, SELFPAY ==
[2024-11-09] VITALS (22 sets, daily range): BP systolic 126–155; BP diastolic 88–145; PULSE 70–145; RESP 8–21; TEMP 36.9; O2SAT 95–100
--- OUTSIDE RECORDS SUMMARY | 2024-11-09 15:36 | XMS_ITS | Clinical Summary ---
Author Organization [facility] Address [place], [place] [address] Care Team Providers Care Gut Sorter Name Role Phone Swati Higginbotham LABORER PRESTRESSED CONCRETE Primary Care Provider [phone] Allergies Active Allergy Reactions Criticality Noted Date Comments Pollen Extracts Runny Nose,Other - Describe In Comment Field 02/26/2022 Sneezing, runny eyes Medications clonazePAM (KLONOPIN) 0.5 mg tablet Take 0.5 mg by mouth two times daily. Active FLUoxetine (PROZAC) 10 mg capsule Take 10 mg by mouth once daily. Take with a 20 mg capsule for a total daily dose of 30 mg. Active FLUoxetine (PROZAC) 20 mg capsule Take 20 mg by mouth once daily. Take with a 10 mg capsule for a total daily dose of 30 mg. Active gabapentin (NEURONTIN) 600 mg tablet Take 600 mg by mouth three times daily. Active QUEtiapine (SEROQUEL) 25 mg tablet Take 25 mg by mouth two times daily. Morning and afternoon 09/24/20 23 Active QUEtiapine (SEROQUEL) 300 mg tablet Take 300 mg by mouth at bedtime. Active SUMAtriptan (IMITREX) 100 mg tablet Take 100 mg by mouth one time if needed for Migraine. May repeat dose once in 2 hours if migraine is unresolved. Do not exceed 200 mg in 24 hours. 11/12/19 23 Active warfarin (COUMADIN) 2 mg tablet As directed 2 mg. On Saturday, , Saturday06/15/20 24 Active warfarin (COUMADIN) 3 mg tablet Take 3 mg by mouth. On Saturday, Saturday, Saturday, and Saturday05/18/20 24 Active furosemide (LASIX) 20 mg tablet Take 20 mg by mouth once daily. Active potassium chloride (K-TAB) 10 mEq extended-release tablet Take 10 mEq by mouth once daily with a meal. Active acetaminophen (Tylenol Extra Strength) 500 mg tablet Take 1,000 mg by mouth every 6 hours if needed. Max acetaminophen dose: 4000mg in 24 hrs. Active gabapentin (NEURONTIN) 100 mg capsule Take 100 mg by mouth three times daily. Take with 600 mg tablet for total dose of 700 mg TID. Active metoprolol succinate (Toprol XL) 50 mg sustained-releas e tabletIndication s:Persistent atrial fibrillation (HC) Take 1 Tablet (50 mg) by mouth once daily. 30 Tablet 3 07/06/20 24 Active losartan (COZAAR) 50 mg tabletIndication s:Hypertension Take 1 Tablet (50 mg) by mouth once daily. 90 Tablet 3 07/07/20 24 Active Encounters Date Type Department Care Team Description 11/09/2024 [place] [address] Aydin Washington MD Atrial Fibrillation from Last 3 Months Social History Tobacco Use Types Packs/Day Years Used Date Smoking Tobacco: Every Day Cigarettes Smokeless Tobacco: Never Tobacco Cessation:Ready to Q uit: Not Asked; Counseling Given: Not Answered Alcohol Use Standard Drinks/Week Comments Yes 0 (1 standard drink = 0.6 oz pur e alcohol) 6 pack daily Interpersonal Safety Answer Date Record ed Are you being hit, kicked, p ushed or yelled at (see row info)? Unable to assess, family/SO in room. 07/06/2024 Interpersonal Safety Abuse 12 - 18 Not on file 07/06/2024 Interpersonal Safety Ambulat ory Vulnerability Not on file 07/06/2024 Comments Unknown Sex and Gender Information Value Date Recorded Sex Assigned at Not on file Legal Sex Female 11:05 AM CDT Gender Identity Not on file Sexual Orientation Not on file Obstetrics History Last Filed Vital Signs Vital Sign Reading Time Taken Comments Blood Pressure 169/91 07/06/2024 1:31 PM CDT Pulse 59 07/06/2024 1:31 PM CDT Temperature 36.5 C (97.7 F) 07/06/2024 10:32 AM CDT Respiratory Rate 16 07/06/2024 10:32 AM CDT Oxygen Saturation 97% 07/06/2024 1:31 PM CDT Inhaled Oxygen Concentration - - Weight 81.2 kg (179 lb) 07/06/2024 10:32 AM CDT Height 165.1 cm (5' 5) 07/06/2024 10:32 AM CDT Body Mass Index 29.79 07/06/2024 10:32 AM CDT Plan of Treatment Health Maintenance Due Date Last Done Comments Tdap 1971 Depression screening for age 12+ 1972 HIV for age 15-65 1975 BMI (ht and wt on same day) for age 18+ 1978 Hepatitis C screening for age 18-79 1978 Pneumococcal series for age 50+ (1 of 2 - PCV) 1979 Tetanus booster 1980 Pap test for age 21-65 1981 Colonoscopy through age 75 2005 Lipids for age 45-75 2005 Mammogram for age 45-75 2005 Zoster (shingles) series for age 50+ (1 of 2) 2010 COVID-19 vaccine series ( season) 2024 01/13/2021, 12/20/2020 Influenza for age 50-64 06/07/2024 RSV vaccine for adults or pr egnancy (1 - 1-dose 75+ series) 2035 Insurance [employer] Advance Directives * Full Code (Latest Code Status on File) Date Activated Date Inactivated Comments 07/06/2024 12:32 PM 07/06/2024 6:00 PM Question Answer Comments Code Status Discussion: Unable to Assess Preferences, Provider to review later Care Teams Gut Sorter Relationship Specialty Start Date End Date Swati Higginbotham, LABORER PRESTRESSED CONCRETE [address] [place] [address] PCP - General 04/17/24
--- OUTSIDE RECORDS SUMMARY | 2024-11-09 15:36 | XMS_ITS | Clinical Summary ---
Author Organization [facility] Address [address] [place] [address] Care Team Providers Care Field Crop Farm Worker Name Role Phone Asael Smith M.D. Primary Care Provider Source Comments Patient records contain information from all sites at [facility]. For routine questions regarding patient records, call [phone] during business hours, M-F 8:00 AM - 5:00 PM Central Time. Record requests for emergency care only can be directed to [phone] at any time.[facility] Allergies Active Allergy Reactions Criticality Noted Date Comments Pollen Extracts Other (see comments) 02/26/2022 Sneezing, runny eyes Medications * This document contains information received from the source organization and may not represent a complete record from that organization. aspirin [address] tablet Take 1 tablet by mouth daily. 6 Active magnesium citrate 100 mg tablet Take 1 tablet by mouth daily. 6 Active cholecalciferol (VITAMIN D3) 50 mcg (2,000 Unit) capsule Take 1 capsule by mouth daily. 6 Active atorvastatin (LIPITOR) 40 mg tabletIndications: Hyperlipidemia Take 1 tablet (40 mg total) by mouth daily. 90 tablet 3 1 Active propranoloL (INDERAL LA) 80 mg 24 hr capsule Take 1 capsule (80 mg total) by mouth daily. 90 capsule 3 1 Active SUMAtriptan (IMITREX) 100 mg tablet Take 1 tablet (100 mg total) by mouth as needed for migraine. May repeat dose once in 2 hours if migraine is unresolved. Do not exceed 200 mg in 24 hours. 18 tablet 3 3 Active gabapentin (NEURONTIN) 100 mg capsule TAKE ONE CAPSULE BY MOUTH THREE TIMES A DAY WITH A 600MG CAPSULE FOR A TOTAL DOSE OF 700MG 270 capsule 3 3 Active gabapentin (NEURONTIN) 600 mg tablet TAKE ONE TABLET BY MOUTH THREE TIMES A DAY 270 tablet 3 3 Active FLUoxetine (PROzac) 20 mg capsuleIndications :Bipolar Disorder (HCC) take one capsule by mouth every day 90 capsule 3 3 Active losartan (COZAAR) 100 mg tablet take one tablet by mouth every day 90 tablet 3 3 Active FLUoxetine (PROzac) 10 mg capsuleIndications :Bipolar Disorder (HCC) take one capsule by mouth every day 90 capsule 3 3 Active QUEtiapine (SEROquel) 300 mg tabletIndications: Bipolar Disorder (HCC) take one tablet by mouth at bedtime 90 tablet 3 3 Active QUEtiapine (SEROquel) 25 mg tablet TAKE ONE TABLET BY MOUTH TWICE A DAY IN ADDITION TO 300 MG AT BEDTIME 180 tablet 3 3 Active amLODIPine (NORVASC) 5 mg tablet take one tablet by mouth every day 90 tablet 3 4 Active clonazePAM (KlonoPIN) 0.5 mg tabletIndications: Anxiety Generalized Disorder Take 1 tablet (0.5 mg total) by mouth every morning. May also take 0.5 tablets (0.25 mg total) every evening as needed for anxiety. Do all this for 10 days. The evening dose (0.5 tablets) should be used a maximum of twice per week.. 14 tablet 4 Active clonazePAM (KlonoPIN) 0.25 mg disintegrating tablet Please take 1 tablet of 0.25 mg of clonazepam every morning. You also have 0.25 mg of clonazepam to be taken as needed, 2-3 times per week. Do not take more than this. 42 tablet 3 4 Active Active Problems Problem Noted Date Diagnosed [...] screening. Assessment & Plan (11/12/2022 4:47 PM IMMUNOHEMATOLOGIST): Patient open to receiving a Cologuard. Declines low-dose lung cancer screening. Must schedule mammogram. Impaired Fasting Glucose 11/18/2018 Overview (12/04/2022): 2020: Normal fasting glucose November 2022: Fasting blood glucose of 114. Repeat in 1 years time. She has a history of intermittent elevated fasting blood glucoses, the highest of which was 121. Assessment & Plan (11/12/2022 4:39 PM IMMUNOHEMATOLOGIST): Repeat fasting blood glucose. Dyslipidemia 11/18/2018 Overview (11/12/2022): Images from the original note were not included. February 2022: Elevated triglycerides. Lipids 02/15/2022 11:09 AM CHOLESTEROL 297 TRIGLYCERIDES 446 HDL 57 LDL CALC CANCELED Assessment & Plan (11/12/2022 4:46 PM IMMUNOHEMATOLOGIST): No indication yet repeat lipid panel at this time. We will plan to repeat in approximately 4 years, as part of her drug monitoring therapy. Monitoring For Therapeutic Drug Therapy 05/15/20 18 Overview (01/06/2024): Controlled Substance Prescribing Plan: Stimulants and Benzodiazepines This patient is expected to be on controlled substances snf. Diagnosis: Generalized anxiety disorder, bipolar disorder Previous [...] Monitoring Frequency of visits: 6 month Overseeing peoplesoft consultant: Dr. Back and Consultants [facility] review/documentation:yes Urine drug screening requested?: no Urine screening frequency:other- not indicated 01/2024: Patient stated she is going to a doctor in [place] and does not wish to doctor in [place] because we are not going back to her current benzo dosing and regimen. Follow up as needed. Assessment & Plan (12/20/2023 12:32 PM CDT): Refer to anxiety generalized Disorder regarding clonazepam Assessment & Plan (04/15/2023 11:24 AM CDT): Please see assessment and plan for anxiety generalized disorder. Patient should be assessed by Psychiatry. Assessment & Plan (11/12/2022 4:45 PM IMMUNOHEMATOLOGIST): Please refer to anxiety assessment and plan [...] years. Assessment & Plan (09/16/2020 11:10 AM IMMUNOHEMATOLOGIST): - No changes to CSA. - 6 mo f/u Anxiety Generalized Disorder 01/14/2017 Overview (01/06/2024): Stable on: - Gabapentin 700 mg TID - Prozac 30 mg qd - Seroquel 300. - Klonopin 0.5 mg morning, 0.25 mg PRN 2-3 x a week. Controlled Substance Prescribing Plan: Stimulants and Benzodiazepines This patient is expected to be on controlled substances termination clerk. Diagnosis: Generalized anxiety disorder, bipolar disorder Previous [...] FURTHER REFILLS (last visit was 12/2023 Overseeing peoplesoft consultant: PCP/Consultants. [facility] review/documentation:yes Urine drug screening requested?: no Urine screening frequency:other- not indicated 11/2022: Patient requested a dose increase. Spoke with Dr. Chow and he advised against increasing clonazepam frequency. Plans to see patient on 11/23/2022. 04/15/2023: Patient did not show up to Psychiatry visit. No changes to her medication changes recently. Still is taking clonazepam regularly. Good social support system with friends and muslim. No red flags. 07/2023: PSY recs - no clonazepam change for now, f/u in six weeks to discuss taper. 12/2023: reduced to 0.25 qAM, 0.25 qPM 2-3 times per week. 01/2024: Patient stated she is going to a doctor in [place] and does not wish to doctor in [place] because we are not going back to [...] time. Assessment & Plan (11/12/2022 4:43 PM IMMUNOHEMATOLOGIST): Unfortunately, this is a difficult situation. The [...] instead. Assessment & Plan (11/12/2022 4:39 PM IMMUNOHEMATOLOGIST): Patient has been offered enrollment in low-dose [...] clonazepam Assessment & Plan (11/12/2022 4:46 PM IMMUNOHEMATOLOGIST): Please see psychiatry notes and the anxiety assessment and plan. Assessment & Plan (09/16/2020 11:10 AM IMMUNOHEMATOLOGIST): - Continue current medications. - 6 mo CSA recheck. Hypertension Essential Primary 05/18/2014 Overview (04/15/2023): 03/23/21: BP elevated in setting of multiple emotional stressors, PAPER FINISHER return visit ordered in 1 month. 2021: [...] recheck. Assessment & Plan (11/12/2022 4:39 PM IMMUNOHEMATOLOGIST): Plan to increase amlodipine to 7.5 mg daily. Plan to not change losartan. Not due for any BMP monitoring. Immunizations Immunization Administration Dates Next Due PCV20 02/15/2022 PPSV23 08/12/2014 RZV (SHINGRIX) 11/12/2022,,02/15/2022(Deferr ed: Patient decision - needs to check insurance) SARS-COV-2 (COVID-19) - MODE RNA (12 YEARS AND OLDER) Fall Seasonal 12/20/2023(Deferred: Patient decision) SARS-COV-2 (COVID-19) - PFIZ [...] Date Smoking Tobacco: Every Day Cigarettes 1 49.3 Started: 08/08/1975 Passive Smoke Exposure: Current Smokeless Tobacco: Never Tobacco Cessation:Ready to Q uit: Not Asked; Counseling Given: Not Answered Alcohol Use Standard Drinks/Week Comments Never 0 (1 standard drink = 0.6 oz pur e alcohol) [facility] Utilities Answer Date Recorded In the past 12 months has [employer], oil, or water inmobly threatened to shut off services in your [...] week 02/15/2022 How often do you attend [facility] or jainism services? 1 to 4 times per year [...] your living situation today? I have a [facility] place to live 12/20/2023 Education Answer Date Recorded What is the highest level of school you have completed or the highest degree you have received? 12th grade 08/12/2019 Comments No Sex and Gender Information Value Date Recorded Sex Assigned at Female 12/20/2023 8:28 AM CDT Legal Sex Female 7:40 PM IMMUNOHEMATOLOGIST Gender Identity Female 12/20/2023 8:28 AM CDT [...] 04/15/2023 Visit: Chronic Disease, age 18+ 04/15/2024 04/15/2023 COVID-19 Vaccine ( season) 2024 01/13/2021, 12/20/2020 Influenza Vaccine (#1) 2024 11/12/2022, 2021 Depression Screening (Annual PHQ-2) 10/07/2024 DTaP,Tdap,and Td Vaccines (2 - Td or Tdap) 12/16/2024 12/16/2014 Office Visit for Blood Pressure Check / Re-check 12/19/2024 12/20/2023 Creatinine Level (Kidney Function Test) 02/21/2025 02/22/2024, 04/15/2023, 10/05/2021, Additional history exists Fasting Glucose for Diabetes Screening 02/21/2025 02/22/2024, 04/15/2023, 12/03/2022, Additional history exists Potassium Level 02/21/2025 02/22/2024, 04/06, 10/05/2021, Additional history exists Sodium Level 02/21/2025 02/22/2024, 04/06, 10/05/2021, Additional history exists Lipid (Cholesterol) Screening 02/15/2027 02/15/2022, 12/10/2019, 05/15/2018, Additional history exists Pneumococcal vaccine (50+ years) Completed 02/15/2022, 08/12/2014 Zoster Vaccines Completed 11/12/2022, 02/15/2022 IPV Vaccines Aged Out No longer eligi ble based on patient's age to complete this topic [...] CDT 04/15/2023 12:21 PM CDT Branden De Oliveira B.Ch., B.A.O. LAB BLOOD ADD-ON Final Result Performing Organization Address City/[facility]/ZIP Co de Phone Number [facility] [address] [place] [address], [facility] DTL [facility] [place] [facility] [place] [address] [place] [address] * (ABNORMAL) Lipid Panel (02/15/2022 11:09 AM CDT) [facility] Cholesterol, Total 297(H) mg/dL 2021 3:37 PM [...] 11:09 AM CDT 02/15/2022 3:09 PM CDT us Branden De Oliveira B.Ch., B.A.O. LAB BLOOD ADD-ON Final Result [facility] [address] [place] [address], [place] DTL [facility] [place] [facility] [place] [address] [place] [address] from Last 3 Months or Most Recently Relevant to Health Maintenance Care Teams Field Crop Farm Worker Relationship Specialty Start Date End Date Asael Smith M.D. [address] [place] [phone] PCP - General 04/06/24
--- NOTE | 2024-11-09 16:25 | ED_ITS ---
HPI - Arrhythmia/Palpitations General Chief Complaint: Arrhythmia/Palpitations <Rohith Vasquez MD - Last Filed: 11/09/24 17:21> Stated Complaint: Afib <Rohith Vasquez MD - Last Filed: 11/09/24 17:21> Time Seen by Provider: 11/09/24 15:36 <Rohith Vasquez MD - Last Filed: 11/09/24 17:21> History of Present Illness HPI narrative: This 64-year-old female comes in with atrial fibrillation and rapid ventricular response. She has a history of paroxysmal atrial fibrillation and is taking metoprolol 50 mg once daily. She is also on warfarin. She arrives with irregular heart beat and rapid heart rate. She states that she does not typically feel these specific symptoms but does note that she seems more fatigued recently. She does not report any nausea, vomiting, lightheadedness, shortness of breath, diaphoresis, or chest pain. <Rohith Vasquez MD - Last Filed: 11/09/24 17:21> Related Data Home Medications: Home Medications ?Medication ?Instructions ?Recorded ?Confirmed cholecalciferol (vitamin D3) 50 50 mcg PO QDAY 01/30/24 11/09/24 mcg (2,000 unit) capsule magnesium citrate 100 mg capsule 100 mg PO QDAY 01/30/24 11/06/24 ondansetron 4 mg disintegrating 4 mg PO Q8H PRN nausea/vomiting 02/24/24 11/06/24 tablet metoprolol succinate 50 mg 50 mg PO QDAY 07/09/24 11/09/24 tablet,extended release 24 hr Previous Rx's ?Medication ?Instructions ?Recorded potassium chloride 10 mEq 10 meq PO QDAY #90 caps 04/20/24 capsule,extended release quetiapine 25 mg tablet 25 mg PO BID 90 days #180 tabs 04/20/24 sumatriptan succinate 100 mg tablet See Rx Instructions PO .COMPLEX 04/20/24 #10 tabs quetiapine 300 mg tablet 300 mg PO QPM #90 tabs 05/26/24 fluoxetine 10 mg capsule 10 mg PO QDAY #90 caps 06/10/24 fluoxetine 20 mg capsule 20 mg PO QDAY #90 caps 06/10/24 warfarin 2 mg tablet 2 mg PO .COMPLEX #30 tabs 06/15/24 warfarin 3 mg tablet 3 mg PO QDAY #90 tabs 06/24/24 gabapentin 100 mg capsule 100 mg PO 3XD 90 days #270 caps 06/30/24 gabapentin 600 mg tablet 600 mg PO 3XD 90 days #270 tabs 06/30/24 losartan 100 mg tablet 100 mg PO QDAY #90 tabs 07/09/24 clonazepam 0.5 mg tablet 0.5 mg PO BID PRN anxiety #180 tabs 10/13/24 metoprolol tartrate 25 mg tablet 25 mg PO BID PRN Tachyarrhythmias 11/09/24 #30 tabs <Rohith Vasquez MD - Last Filed: 11/09/24 17:21> Allergies/Adverse Reactions: Allergies Allergy/AdvReac Type Severity Reaction Status Date / Time No Known Drug Allergies Allergy Verified 11/06/24 12:20 <Rohith Vasquez MD - Last Filed: 11/09/24 17:21> Review of Systems Status of ROS: Reports: 10 or more systems reviewed and unremarkable except as noted in History and below <Rohith Vasquez MD - Last Filed: 11/09/24 17:21> Narrative: Constitutional: No fevers, no weight gain or loss. Eyes: No discharge. No vision changes. HENT: No congestion, no sore throat, no ear pain. Cardiovascular: No chest pain. Respiratory: No shortness of breath, no wheezes, no cough. Gastrointestinal: No abdominal pain, no vomiting, no diarrhea. Genitourinary: No dysuria, no hematuria. Musculoskeletal: Normal range of motion. Skin: No rashes, no pruritis. Neurological: No dizziness, weakness, sensory change, speech change. Endo/Heme/Allergies: No bruising or bleeding. No polydipsia. Pysch: no suicidality, no anxiety, no insomnia. All other systems reviewed and are negative. <Rohith Vasquez MD - Last Filed: 11/09/24 17:21> [facility] Medical History: Medical History (Updated 11/09/24 @ 17:19 by Rohith Vasquez MD) History of cardioversion ?Z92.89 - Personal history of other medical treatment (ICD-10) <Rohith Vasquez MD - Last Filed: 02/03/25 17:21> Surgical History: Surgical History (Updated 02/10/24 @ 12:24 by Swati Higginbotham APRN, BUSINESS TRANSFORMATION CONSULTANT) History of hysterectomy ?Z90.710 - Acquired absence of both cervix and uterus (ICD-10) <Rohith Vasquez MD - Last Filed: 11/09/24 17:21> Exam Narrative: Exam Narrative: Constitutional: Well-developed, well-nourished, no acute distress. HEENT: Normocephalic, atraumatic. Neck: Normal range of motion. Nontender. Supple. Heart: Irregular. No murmurs. Tachycardia. Intact distal pulses. Lungs: Clear to auscultation. No chest discomfort. No wheezes, rhonchi, or rales. Abdomen: Normal bowel sounds. Nontender. No rebound tenderness. Genitalia: Deferred. Back: No midline tenderness. Normal range of motion. Extremities: Normal range of motion. No injury. Skin: Intact. No rash. Warm. No erythema or pallor. Neurologic: No altered sensation. No weakness. Alert and oriented. Psychiatric: No suicidality. No anxiety or depression. No insomnia. Nursing notes and vitals signs are reviewed. <Rohith Vasquez MD - Last Filed: 11/09/24 17:21> Const: Vital Signs, click to edit/add: Vital Signs - 24 hr 11/09/24 15:38 11/09/24 15:58 11/09/24 15:59 Temperature 98.4 F Pulse Rate 137 H 134 H Pulse Rate [Right Pulse Oximeter] 127 H Respiratory Rate 18 Blood Pressure 138/106 H Blood Pressure [Ri ght Upper Arm] 151/97 H Pulse Oximetry 97 97 98 Oxygen Delivery Me thod Room Air 11/09/24 16:00 11/09/24 16:01 11/09/24 16:11 Temperature Pulse Rate 139 H 137 H 133 H Pulse Rate [Right Pulse Oximeter] Respiratory Rate Blood Pressure 155/145 H 139/114 H Blood Pressure [Ri ght Upper Arm] Pulse Oximetry 98 98 96 Oxygen Delivery Me thod 11/09/24 16:15 11/09/24 16:30 11/09/24 16:31 Temperature Pulse Rate 126 H 145 H 124 H Pulse Rate [Right Pulse Oximeter] Respiratory Rate 10 L 21 Blood Pressure 147/114 H Blood Pressure [Ri ght Upper Arm] Pulse Oximetry 97 100 95 Oxygen Delivery Me thod <Rohith Vasquez MD - Last Filed: 11/09/24 17:21> Vital Signs, click to edit/add: Vital Signs - 24 hr 11/09/24 15:38 11/09/24 15:58 11/09/24 15:59 Temperature 98.4 F Pulse Rate 137 H 134 H Pulse Rate [Right Pulse Oximeter] 127 H Respiratory Rate 18 Blood Pressure 138/106 H Blood Pressure [Ri ght Upper Arm] 151/97 H Pulse Oximetry 97 97 98 Oxygen Delivery Me thod Room Air 11/09/24 16:00 11/09/24 16:01 11/09/24 16:11 Temperature Pulse Rate 139 H 137 H 133 H Pulse Rate [Right Pulse Oximeter] Respiratory Rate Blood Pressure 155/145 H 139/114 H Blood Pressure [Ri ght Upper Arm] Pulse Oximetry 98 98 96 Oxygen Delivery Me thod 11/09/24 16:15 11/09/24 16:30 11/09/24 16:31 Temperature Pulse Rate 126 H 145 H 124 H Pulse Rate [Right Pulse Oximeter] Respiratory Rate 10 L 21 Blood Pressure 147/114 H Blood Pressure [Ri ght Upper Arm] Pulse Oximetry 97 100 95 Oxygen Delivery Me thod <Asael Johnston MD - Last Filed: 11/09/24 17:12> Course Vital Signs Vital signs: Initial Vital Signs Temperature 98.4 F 11/09/24 15:38 Temperature Source Temporal Artery Scan 11/09/24 15:38 Pulse Rate 127 H 11/09/24 15:38 Pulse Rhythm Regular 11/09/24 15:38 Respiratory Rate 18 11/09/24 15:38 Blood Pressure 151/97 H 11/09/24 15:38 Blood Pressure Mean 115 H 11/09/24 15:38 Blood Pressure Position Sitting 11/09/24 15:38 Pulse Oximetry 97 11/09/24 15:38 Oxygen Delivery Method Room Air 11/09/24 15:38 Vital Signs Temperature 98.4 F 11/09/24 15:38 Pulse Rate 127 H 11/09/24 15:38 Respiratory Rate 18 11/09/24 15:38 Blood Pressure 151/97 H 11/09/24 15:38 Pulse Oximetry 97 11/09/24 15:38 Oxygen Delivery Method Room Air 11/09/24 15:38 Temperature 98.4 F 11/09/24 15:38 Pulse Rate 124 H 11/09/24 16:31 Respiratory Rate 21 11/09/24 16:31 Blood Pressure 147/114 H 11/09/24 16:31 Pulse Oximetry 95 11/09/24 16:31 Oxygen Delivery Method Room Air 11/09/24 15:38 <Rohith Vasquez MD - Last Filed: 11/09/24 17:21> Initial Vital Signs Temperature 98.4 F 11/09/24 15:38 Temperature Source Temporal Artery Scan 11/09/24 15:38 Pulse Rate 127 H 11/09/24 15:38 Pulse Rhythm Regular 11/09/24 15:38 Respiratory Rate 18 11/09/24 15:38 Blood Pressure 151/97 H 11/09/24 15:38 Blood Pressure Mean 115 H 11/09/24 15:38 Blood Pressure Position Sitting 11/09/24 15:38 Pulse Oximetry 97 11/09/24 15:38 Oxygen Delivery Method Room Air 11/09/24 15:38 Vital Signs Temperature 98.4 F 11/09/24 15:38 Pulse Rate 127 H 11/09/24 15:38 Respiratory Rate 18 11/09/24 15:38 Blood Pressure 151/97 H 11/09/24 15:38 Pulse Oximetry 97 11/09/24 15:38 Oxygen Delivery Method Room Air 11/09/24 15:38 Temperature 98.4 F 11/09/24 15:38 Pulse Rate 124 H 11/09/24 16:31 Respiratory Rate 21 11/09/24 16:31 Blood Pressure 147/114 H 11/09/24 16:31 Pulse Oximetry 95 11/09/24 16:31 Oxygen Delivery Method Room Air 11/09/24 15:38 <Asael Johnston MD - Last Filed: 11/09/24 17:12> MDM - Arrhythmia/Palpitations MDM Narrative Medical decision making narrative: This patient comes in with atrial fibrillation and rapid ventricular response. She is otherwise asymptomatic. She has been previously cardioverted and is interested in having this done again. She is currently taking warfarin and is a candidate for cardioversion. Her last meal was about 8 hours prior to arrival. After a acquiring informed consent the patient was ready for cardioversion. Dr. Johnston assisted in this procedure by administering 75 mg of propofol which brought about excellent sedation. She received 1 attempt of sigmoid in eyes cardioversion at 150 joules which brought her back to normal sinus rhythm. Repeat EKG confirms this. The patient tolerated this procedure well. <Rohith Vasquez MD - Last Filed: 11/09/24 17:21> Lab Data Labs: Lab Results 11/09/24 11/09/24 Range/Units 16:10 16:23 WBC 6.17 (4.50-11.00) K/uL RBC 4.35 (4.00-5.20) m/uL Hgb 14.9 (12.0-16.0) gm/dL Hct 45.1 (33.0-51.0) % MCV 104 H (80-100) fL MCH 34 (26-34) pg MCHC 33 (32-36) gm/dL RDW Coeff of Yvon 14.0 (11.5-15.5) % Plt Count 171 (140-440) K/uL Neut % (Auto) 57.9 (42.0-72.0) % Lymph % (Auto) 31.1 (20-44) % Kleberg % (Auto) 9.2 (0.0-11.0) % Eos % (Auto) 1.0 (0.0-7.0) % Baso % (Auto) 0.8 (0.0-3.0) % Neut # (Auto) 3.57 (1.7-7.0) K/uL Lymph # (Auto) 1.92 (0.90-2.90) K/uL Kleberg # (Auto) 0.60 (0.00-0.90) K/UL Eos # (Auto) 0.06 (0.00-0.50) K/uL Baso # (Auto) 0.05 (0.00-0.30) K/uL Abs Immat Gran (auto) 0.00 (0.00-0.30) K/uL Imm/Tot Granulo (auto) 0.0 % Sodium 136 (135-149) mmol/L Potassium 4.0 (3.6-5.1) mmol/L Chloride 111 (96-114) mmol/L Carbon Dioxide 10 L (20-32) mmol/L Anion Gap 15 (7-15) mEq/L BUN 36 H (7-30) mg/dL Creatinine 2.0 H (0.5-1.5) mg/dL Estimated GFR 27 ml/min Glucose 94 (60-115) mg/dL Calcium 8.8 (8.4-10.6) mg/dL POC Troponin I 0.01 (0.01-0.04) ng/ml <Rohith Vasquez MD - Last Filed: 11/09/24 17:21> Lab Results 11/09/24 11/09/24 Range/Units 16:10 16:23 WBC 6.17 (4.50-11.00) K/uL RBC 4.35 (4.00-5.20) m/uL Hgb 14.9 (12.0-16.0) gm/dL Hct 45.1 (33.0-51.0) % MCV 104 H (80-100) fL MCH 34 (26-34) pg MCHC 33 (32-36) gm/dL RDW Coeff of Yvon 14.0 (11.5-15.5) % Plt Count 171 (140-440) K/uL Neut % (Auto) 57.9 (42.0-72.0) % Lymph % (Auto) 31.1 (20-44) % Kleberg % (Auto) 9.2 (0.0-11.0) % Eos % (Auto) 1.0 (0.0-7.0) % Baso % (Auto) 0.8 (0.0-3.0) % Neut # (Auto) 3.57 (1.7-7.0) K/uL Lymph # (Auto) 1.92 (0.90-2.90) K/uL Kleberg # (Auto) 0.60 (0.00-0.90) K/UL Eos # (Auto) 0.06 (0.00-0.50) K/uL Baso # (Auto) 0.05 (0.00-0.30) K/uL Abs Immat Gran (auto) 0.00 (0.00-0.30) K/uL Imm/Tot Granulo (auto) 0.0 % Sodium 136 (135-149) mmol/L Potassium 4.0 (3.6-5.1) mmol/L Chloride 111 (96-114) mmol/L Carbon Dioxide 10 L (20-32) mmol/L Anion Gap 15 (7-15) mEq/L BUN 36 H (7-30) mg/dL Creatinine 2.0 H (0.5-1.5) mg/dL Estimated GFR 27 ml/min Glucose 94 (60-115) mg/dL Calcium 8.8 (8.4-10.6) mg/dL POC Troponin I 0.01 (0.01-0.04) ng/ml <Asael Johnston MD - Last Filed: 11/09/24 17:12> ECG Data Attestation: I personally reviewed and interpreted this ECG as follows: <Rohith Vasquez MD - Last Filed: 11/09/24 17:21> Interpretation: Atrial fibrillation with rapid ventricular response. There are no specific ST or T-wave abnormalities. Repeat EKG reviewed by me shows normal sinus rhythm. There are no specific ST or T-wave abnormalities. Rate is at 79 beats per minute. <Rohith Vasquez MD - Last Filed: 11/09/24 17:21> Discharge Plan Discharge Clinical Impression: Atrial fibrillation with RVR <Rohith Vasquez MD - Last Filed: 11/09/24 17:21> Patient Disposition: Home w/ Parent or Adult <Rohith Vasquez MD - Last Filed: 11/09/24 17:21> Condition: Improved <Rohith Vasquez MD - Last Filed: 11/09/24 17:21> Additional Instructions: Continue current plans. A prescription for metoprolol tartrate 25 mg is provided. This can be taken in addition to the metoprolol succinate for additional rate control if symptoms of atrial fibrillation or rapid heart rate recur. Follow up with MD otherwise as needed or return if worsening. <Rohith Vasquez MD - Last Filed: 11/09/24 17:21> Prescriptions: New metoprolol tartrate 25 mg tablet 25 mg PO BID PRN (Reason: Tachyarrhythmias) Qty: 30 2RF No Action cholecalciferol (vitamin D3) 50 mcg (2,000 unit) capsule 50 mcg PO QDAY magnesium citrate 100 mg capsule 100 mg PO QDAY sumatriptan succinate 100 mg tablet See Rx Instructions PO .COMPLEX Qty: 10 6RF Rx Instructions: take 1 tab at onset of headache; if no relief, may repeat 1 tab after at least 2 hrs; max = 2 tabs/24 hrs PO quetiapine 25 mg tablet 25 mg PO BID 90 Days Qty: 180 3RF Rx Instructions: take 25 mg b.i.d. with 300 mg at bedtime potassium chloride 10 mEq capsule, extended release 10 meq PO QDAY Qty: 90 3RF metoprolol succinate 50 mg tablet extended release 24 hr 50 mg PO QDAY losartan 100 mg tablet 100 mg PO QDAY Qty: 90 3RF ondansetron 4 mg tablet,disintegrating 4 mg PO Q8H PRN (Reason: nausea/vomiting) quetiapine 300 mg tablet 300 mg PO QPM Qty: 90 3RF gabapentin 100 mg capsule 100 mg PO 3XD 90 Days Qty: 270 1RF Rx Instructions: in addition to 600 mg tid (700 mg tid) gabapentin 600 mg tablet 600 mg PO 3XD 90 Days Qty: 270 1RF Rx Instructions: in addition to 100 mg tid (700 mg tid) fluoxetine 10 mg capsule 10 mg PO QDAY Qty: 90 3RF Rx Instructions: 10 mg in addition to 20 mg, for 30 mg dose daily. fluoxetine 20 mg capsule 20 mg PO QDAY Qty: 90 3RF Rx Instructions: 10 mg in addition to 20 mg, for 30 mg dose daily. warfarin 2 mg tablet 2 mg PO .COMPLEX Qty: 30 1RF Protocol: Dose Management Condition: Saturday Dose/Route: 3 mg Instruction: 1 x 3 mg tablet Condition: Saturday Dose/Route: 3 mg Instruction: 1 x 3 mg tablet Condition: Saturday Dose/Route: 2 mg Instruction: 1 x 2 mg tablet Condition: Saturday Dose/Route: 3 mg Instruction: 1 x 3 mg tablet Condition: Dose/Route: 2 mg Instruction: 1 x 2 mg tablet Condition: Saturday Dose/Route: 3 mg Instruction: 1 x 3 mg tablet Condition: Saturday Dose/Route: 3 mg Instruction: 1 x 3 mg tablet Protocol Text: Adjustment Start Date: Saturday10/30/24 INR Value: 3.02 INR Date: 10/29/24 Recheck Date: 11/27/24 Rx Instructions: 2 mg orally alternating with Coumadin 3 mg: Coumadin 3 mg daily on Saturday, Saturday, Saturday, Florentino: Coumadin 2 mg the remainder of the week, Saturday, , and Saturday warfarin 3 mg tablet 3 mg PO QDAY Qty: 90 1RF Protocol: Dose Management Condition: Saturday Dose/Route: 3 mg Instruction: 1 x 3 mg tablet Condition: Saturday Dose/Route: 3 mg Instruction: 1 x 3 mg tablet Condition: Saturday Dose/Route: 2 mg Instruction: 1 x 2 mg tablet Condition: Saturday Dose/Route: 3 mg Instruction: 1 x 3 mg tablet Condition: Dose/Route: 2 mg Instruction: 1 x 2 mg tablet Condition: Saturday Dose/Route: 3 mg Instruction: 1 x 3 mg tablet Condition: Saturday Dose/Route: 3 mg Instruction: 1 x 3 mg tablet Protocol Text: Adjustment Start Date: Saturday10/30/24 INR Value: 3.02 INR Date: 10/29/24 Recheck Date: 11/27/24 Rx Instructions: Coumadin 3 mg daily on Saturday, Saturday, Saturday, Saturday: Coumadin 2 mg the remainder of the week, Saturday, , and Saturday clonazepam 0.5 mg tablet 0.5 mg PO BID PRN (Reason: anxiety) Qty: 180 0RF <Rohith Vasquez MD - Last Filed: 11/09/24 17:21> Follow Up/Referrals: Swati Higginbotham APRN, BUSINESS TRANSFORMATION CONSULTANT [Primary Care Provider] - <Rohith Vasquez MD - Last Filed: 11/09/24 17:21> [facility] <Rohith Vasquez MD - Last Filed: 11/09/24 17:21> Procedures Procedural Sedation Pre procedure diagnosis: Paroxysmal atrial fibrillation <Asael Johnston MD - Last Filed: 11/09/24 17:12> Post procedure diagnosis: A paroxysmal atrial fibrillation, converted to sinus rhythm <Asael Johnston MD - Last Filed: 11/09/24 17:12> Written consent by: patient <Asael Johnston MD - Last Filed: 11/09/24 17:12> Verification/time out: correct patient, correct site, correct procedure and time out performed <Asael Johnston MD - Last Filed: 11/09/24 17:12> Name of person perfmorming the procedure: Asael Johnston <Asael Johnston MD - Last Filed: 11/09/24 17:12> Sedation provider same as procedural provider: No <Asael Johnston MD - Last Filed: 11/09/24 17:12> Indication: other (Cardioversion of atrial fibrillation) <Asael Johnston MD - Last Filed: 11/09/24 17:12> ASA Class: II <Asael Johnston MD - Last Filed: 11/09/24 17:12> Mallampati classification: II. soft palate, fauces, uvula visible <Asael Johnston MD - Last Filed: 11/09/24 17:12> Preparation: viner operator applied, pulse oximeter, capnometry used, supplemental O2 applied, reversal agents at bedside, suction/airway equipment at bedside and IV secured <Asael Johnston MD - Last Filed: 11/09/24 17:12> IV Propofol dose (mg): 75 <Asael Johnston MD - Last Filed: 11/09/24 17:12> Complications: none <Asael Johnston MD - Last Filed: 11/09/24 17:12>
[2024-11-09 16:33] LABS: Basophils Absolute Auto 0.05 K/uL (0.00-0.30); Basophils Percent Auto 0.8 % (0.0-3.0); Eosinophils Absolute Auto 0.06 K/uL (0.00-0.50); Hematocrit 45.1 % (33.0-51.0); Hemoglobin* 14.9 gm/dL (12.0-16.0); Lymphocytes Absolute Auto 1.92 K/uL (0.90-2.90); Lymphocytes Percent Auto 31.1 % (20-44); Mean Corpuscular HGB Conc 33 gm/dL (32-36); Mean Corpuscular Hemoglobin 34 pg (26-34); Mean Corpuscular Volume 104 fL (80-100); Monocytes Percent Auto 9.2 % (0.0-11.0); Neutrophils Absolute Auto 3.57 K/uL (1.7-7.0); Neutrophils Percent Auto 57.9 % (42.0-72.0); Platelet Count* 171 K/uL (140-440); Red Blood Count 4.35 m/uL (4.00-5.20); White Blood Count* 6.17 K/uL (4.50-11.00)
[2024-11-09 16:34] LABS: Slide Review Reflex No
[2024-11-09 16:38] LABS: Troponin, Point-of-Care* 0.01 ng/ml (0.01-0.04)
--- OUTSIDE RECORDS SUMMARY | 2024-11-09 16:53 | XMS_ITS | Clinical Summary ---
Author Organization [facility] Address [place], [place] [address] Care Team Providers Care Gear Technician Name Role Phone Swati Higginbotham BUSINESS CONTINUITY PLANNER Primary Care Provider [phone] Allergies Active Allergy Reactions Criticality Noted Date [...] Type Department Care Team Description 11/09/2024 [place] [address] Aydin Washington MD Atrial Fibrillation from Last [...] Preferences, Provider to review later Care Teams Gear Technician Relationship Specialty Start Date End Date Swati Higginbotham, BUSINESS CONTINUITY PLANNER [address] [place] [address] PCP - General 04/17/24
--- OUTSIDE RECORDS SUMMARY | 2024-11-09 16:53 | XMS_ITS | Clinical Summary ---
Author Organization [facility] Address [address] [place] [address] Care Team Providers Care Club Room Attendant Name Role Phone Asael Smith M.D. Primary Care Provider Source Comments Patient records contain information from all sites at [facility]. For routine questions regarding patient records, call [phone] during business hours, M-F 8:00 AM - 5:00 PM Central Time. Record requests for emergency care only can be directed to [phone] at any time.[facility] Allergies Active Allergy Reactions Criticality [...] screening. Assessment & Plan (11/12/2022 4:47 PM LOOM OPERATOR): Patient open to receiving a Cologuard. Declines low-dose lung cancer screening. Must schedule mammogram. Impaired Fasting Glucose 11/18/2018 Overview (12/04/2022): 2020: Normal fasting glucose November 2022: Fasting blood glucose of 114. Repeat in 1 years time. She has a history of intermittent elevated fasting blood glucoses, the highest of which was 121. Assessment & Plan (11/12/2022 4:39 PM LOOM OPERATOR): Repeat fasting blood glucose. Dyslipidemia 11/18/2018 Overview (11/12/2022): Images from the original note were not included. February 2022: Elevated triglycerides. Lipids 02/15/2022 11:09 AM CHOLESTEROL 297 TRIGLYCERIDES 446 HDL 57 LDL CALC CANCELED Assessment & Plan (11/12/2022 4:46 PM LOOM OPERATOR): No indication yet repeat lipid panel at this time. We will plan to repeat in approximately 4 years, as part of her drug monitoring therapy. Monitoring For Therapeutic Drug Therapy 05/15/20 18 Overview (01/06/2024): Controlled Substance Prescribing Plan: Stimulants and Benzodiazepines This patient is expected to be on controlled substances assisted. Diagnosis: Generalized anxiety disorder, bipolar disorder Previous [...] Monitoring Frequency of visits: 6 month Overseeing economic consultant: Dr. Back and Consultants [facility] review/documentation:yes Urine drug screening requested?: no Urine screening frequency:other- not indicated 01/2024: Patient stated she is going to a doctor in [place] and does not wish to doctor in [place] because we are not going back to her current benzo dosing and regimen. Follow up as needed. Assessment & Plan (12/20/2023 12:32 PM CDT): Refer to anxiety generalized Disorder regarding clonazepam Assessment & Plan (04/15/2023 11:24 AM CDT): Please see assessment and plan for anxiety generalized disorder. Patient should be assessed by Psychiatry. Assessment & Plan (11/12/2022 4:45 PM LOOM OPERATOR): Please refer to anxiety assessment and [...] years. Assessment & Plan (09/16/2020 11:10 AM LOOM OPERATOR): - No changes to CSA. - 6 mo f/u Anxiety Generalized Disorder 01/14/2017 Overview (01/06/2024): Stable on: - Gabapentin 700 mg TID - Prozac 30 mg qd - Seroquel 300. - Klonopin 0.5 mg morning, 0.25 mg PRN 2-3 x a week. 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 Diagnosis: Generalized anxiety disorder, bipolar disorder Previous [...] FURTHER REFILLS (last visit was 12/2023 Overseeing economic consultant: PCP/Consultants. [facility] review/documentation:yes Urine drug screening requested?: no Urine screening frequency:other- not indicated 11/2022: Patient requested a dose increase. Spoke with Dr. Chow and he advised against increasing clonazepam frequency. Plans to see patient on 11/23/2022. 04/15/2023: Patient did not show up to Psychiatry visit. No changes to her medication changes recently. Still is taking clonazepam regularly. Good social support system with friends and samaritan. No red flags. 07/2023: PSY recs - no clonazepam change for now, f/u in six weeks to discuss taper. 12/2023: reduced to 0.25 qAM, 0.25 qPM 2-3 times per week. 01/2024: Patient stated she is going to a doctor in [place] and does not wish to doctor in [place] because we are not going back to [...] time. Assessment & Plan (11/12/2022 4:43 PM LOOM OPERATOR): Unfortunately, this is a difficult situation. [...] instead. Assessment & Plan (11/12/2022 4:39 PM LOOM OPERATOR): Patient has been offered enrollment in [...] clonazepam Assessment & Plan (11/12/2022 4:46 PM LOOM OPERATOR): Please see psychiatry notes and the anxiety assessment and plan. Assessment & Plan (09/16/2020 11:10 AM LOOM OPERATOR): - Continue current medications. - 6 mo CSA recheck. Hypertension Essential Primary 05/18/2014 Overview (04/15/2023): 03/23/21: BP elevated in setting of multiple emotional stressors, BALANCE WHEEL HAND FILER return visit ordered in 1 month. 2021: [...] recheck. Assessment & Plan (11/12/2022 4:39 PM LOOM OPERATOR): Plan to increase amlodipine to 7.5 [...] drink = 0.6 oz pur e alcohol) [facility] Utilities Answer Date Recorded In the past 12 months has [employer], oil, or water [employer] threatened to shut off services in your [...] week 02/15/2022 How often do you attend [facility] or orthodox services? 1 to 4 times per year 02/15/2022 Do you belong to any clubs o r organizations such as samaritan groups, unions, fraternal or athletic groups, or [...] Answer Date Recorded PHQ-2 Score 0 12/20/2023 [facility] - [...] your living situation today? I have a [facility] place to live 12/20/2023 Education Answer Date Recorded What is the highest level of school you have completed or the highest degree you have received? 12th grade 08/12/2019 Comments No Sex and Gender Information Value Date Recorded Sex Assigned at Female 12/20/2023 8:28 AM CDT Legal Sex Female 7:40 PM LOOM OPERATOR Gender Identity Female 12/20/2023 8:28 AM CDT [...] BLOOD ADD-ON Final Result Performing Organization Address City/[facility]/ZIP Co de Phone Number [facility] [address] [place] [address], [facility] DTL [facility] [address] [place] [address] * (ABNORMAL) Lipid Panel (02/15/2022 11:09 AM CDT) [facility] Cholesterol, Total 297(H) mg/dL 2021 3:37 [...] B.Ch., B.A.O. LAB BLOOD ADD-ON Final Result [facility] [address] [place] [address], [place] DTL [facility] [address] [place] [address] from Last 3 Months or Most Recently Relevant to Health Maintenance Care Teams Club Room Attendant Relationship Specialty Start Date End Date Asael Smith M.D. [address] [place] [phone] PCP - General 04/06/24
[2024-11-09 16:54] LABS: Chloride* 111 mmol/L (96-114); Sodium* 136 mmol/L (135-149)
[2024-11-09 16:57] LABS: Anion Gap 15 mEq/L (7-15); Carbon Dioxide* 10 mmol/L (20-32); Estimated Glomerular Filt Rate 27 ml/min
[2024-11-09 16:58] LABS: Blood Urea Nitrogen* 36 mg/dL (7-30); Calcium* 8.8 mg/dL (8.4-10.6); Glucose* 94 mg/dL (60-115); INR 2.24 (0.91-1.10); Prothrombin Time 26.5 Seconds
[2024-11-09] MEDS: PROPOFOL 10 MG/ML INJ 200 MG IVP (17:06)
[2024-11-09] MEDS: METOPROLOL TARTRATE 25 MG TABLET PO (17:41)
--- NOTE | 2024-11-09 18:04 | ED.NURSE ---
Pt eating and drinking, is ambulating, denies any dizziness or lightheadedness.
== END 2024-11-09 18:10 | disposition home or self-care (01) ==
PROVIDERS: Emergency Provider Emergency Medicine Emergency Medical Services; PCP Nurse Practitioner Family
DX: I48.20 Chronic atrial fibrillation, unspecified (principal)
CPT/HCPCS: 92960; 36415; 80048; 84484; 85025; 85610; 93005; 99156; 99284; 99285; A9270; J2704

== ENCOUNTER 2024-11-19 09:15 | Outpatient (CLI) | payer OTHER, SELFPAY | END 2024-11-19 09:16 | disposition home or self-care (01) | LOC: KYNREF 09:16 | PROVIDERS: PCP Nurse Practitioner Family; Visit Provider Nurse Practitioner Family | DX: I10 Essential (primary) hypertension (principal); R53.1 Weakness | CPT/HCPCS: 80048 ==

== ENCOUNTER 2024-11-30 15:27 | Emergency (ER) | payer OTHER, SELFPAY ==
[2024-11-30] VITALS (10 sets, daily range): BP systolic 134–154; BP diastolic 83–90; PULSE 67–78; RESP 12–23; TEMP 36.4; O2SAT 95–98; BMI 29.6
--- OUTSIDE RECORDS SUMMARY | 2024-11-30 15:30 | XMS_ITS | Clinical Summary ---
Author Organization [facility] Address [address] [place] [address] Care Team Providers Care Equine Breeder Name Role Phone Swati Higginbotham NP Primary Care Provider [phone] Allergies Active Allergy Reactions Criticality Noted Date [...] Type Department Care Team Description 11/09/2024 Telephone [place] [id number] Aydin Washington MD Atrial Fibrillation from Last [...] 2) 2010 COVID-19 vaccine series (3 - season) 2024 01/13/2021, 12/20/2020 Influenza for age 50-64 06/07/2024 RSV vaccine for adults or pr egnancy (1 - 1-dose 75+ series) 2035 Insurance [employer] Advance Directives * Full Code (Latest Code Status on File) Date Activated Date Inactivated Comments 07/06/2024 12:32 PM 07/06/2024 6:00 PM Question Answer Comments Code Status Discussion: Unable to Assess Preferences, Provider to review later Care Teams Equine Breeder Relationship Specialty Start Date End Date Swati Higginbotham, [employer] [address] [place] [address] PCP - General 04/17/24
--- OUTSIDE RECORDS SUMMARY | 2024-11-30 15:30 | XMS_ITS | Clinical Summary ---
Author Organization [facility] Address [address] [place] [address] Care Team Providers Care Information Systems Technician Name Role Phone Asael Smith M.D. Primary Care Provider Source Comments Patient records contain information from all sites at [facility]. For routine questions regarding patient records, call [phone] during business hours, M-F 8:00 AM - 5:00 PM Central Time. Record requests for emergency care only can be directed to [phone] at any time.[facility] Allergies Active Allergy Reactions Criticality [...] screening. Assessment & Plan (11/12/2022 4:47 PM COMPUTER REPAIRER): Patient open to receiving a Cologuard. Declines low-dose lung cancer screening. Must schedule mammogram. Impaired Fasting Glucose 11/18/2018 Overview (12/04/2022): 2020: Normal fasting glucose November 2022: Fasting blood glucose of 114. Repeat in 1 years time. She has a history of intermittent elevated fasting blood glucoses, the highest of which was 121. Assessment & Plan (11/12/2022 4:39 PM COMPUTER REPAIRER): Repeat fasting blood glucose. Dyslipidemia 11/18/2018 Overview (11/12/2022): Images from the original note were not included. February 2022: Elevated triglycerides. Lipids 02/15/2022 11:09 AM CHOLESTEROL 297 TRIGLYCERIDES 446 HDL 57 LDL CALC CANCELED Assessment & Plan (11/12/2022 4:46 PM COMPUTER REPAIRER): No indication yet repeat lipid panel at [...] Frequency of visits: 6 month Overseeing senior talent management consultant: Dr. Back [facility] review/documentation:yes Urine drug screening requested?: no Urine screening frequency:other- not indicated 01/2024: Patient stated she is going to a doctor in [place] and does not wish to doctor in [place] because we are not going back to her current benzo dosing and regimen. Follow up as needed. Assessment & Plan (12/20/2023 12:32 PM CDT): Refer to anxiety generalized Disorder regarding clonazepam Assessment & Plan (04/15/2023 11:24 AM CDT): Please see assessment and plan for anxiety generalized disorder. Patient should be assessed by Psychiatry. Assessment & Plan (11/12/2022 4:45 PM COMPUTER REPAIRER): Please refer to anxiety assessment and plan [...] years. Assessment & Plan (09/16/2020 11:10 AM COMPUTER REPAIRER): - No changes to CSA. - 6 [...] REFILLS (last visit was 12/2023 Overseeing senior talent management consultant: PCP/Consultants. [facility] review/documentation:yes Urine drug screening requested?: [...] Good social support system with friends and jehovah's witness. No red flags. 07/2023: PSY recs - no clonazepam change for now, f/u in six weeks to discuss taper. 12/2023: reduced to 0.25 qAM, 0.25 qPM 2-3 times per week. 01/2024: Patient stated she is going to a doctor in [place] and does not wish to doctor in [place] because we are not going back to [...] time. Assessment & Plan (11/12/2022 4:43 PM COMPUTER REPAIRER): Unfortunately, this is a difficult situation. The [...] instead. Assessment & Plan (11/12/2022 4:39 PM COMPUTER REPAIRER): Patient has been offered enrollment in low-dose [...] clonazepam Assessment & Plan (11/12/2022 4:46 PM COMPUTER REPAIRER): Please see psychiatry notes and the anxiety assessment and plan. Assessment & Plan (09/16/2020 11:10 AM COMPUTER REPAIRER): - Continue current medications. - 6 mo CSA recheck. Hypertension Essential Primary 05/18/2014 Overview (04/15/2023): 03/23/21: BP elevated in setting of multiple emotional stressors, CRIMINALIST return visit ordered in 1 month. 2021: [...] recheck. Assessment & Plan (11/12/2022 4:39 PM COMPUTER REPAIRER): Plan to increase amlodipine to 7.5 mg [...] 0.6 oz pur e alcohol) [facility] Utilities Answer Date Recorded In the past 12 months has [employer], oil, or water [employer] threatened to shut off services in your [...] How often do you attend [facility] or yazidism services? 1 to 4 times per year 02/15/2022 Do you belong to any clubs o r organizations such as jehovah's witness groups, unions, fraternal or athletic groups, or [...] Answer Date Recorded PHQ-2 Score 0 12/20/2023 [facility] - [...] AM CDT Legal Sex Female 7:40 PM COMPUTER REPAIRER Gender Identity Female 12/20/2023 8:28 AM CDT [...] BLOOD ADD-ON Final Result Performing Organization Address City/[facility]/ZIP Co de Phone Number [facility] [address] [place] [address], [facility] DTL [facility] [address] [place] [address] * (ABNORMAL) Lipid Panel (02/15/2022 11:09 AM CDT) [facility] Cholesterol, Total 297(H) mg/dL 2021 [...] B.A.O. LAB BLOOD ADD-ON Final Result [facility] [address] [place] [address], [place] DTL [facility] [address] [place] [address] from Last 3 Months or Most Recently Relevant to Health Maintenance Care Teams Information Systems Technician Relationship Specialty Start Date End Date Asael Smith M.D. [address] [place] [phone] PCP - General 04/06/24
--- NOTE | 2024-11-30 15:54 | ED_ITS ---
HPI - Chest Pain General Time Seen by Provider: 15:54 Date Seen: 11/30/24 Chief Complaint: Chest Pain Stated Complaint: Afib Time Seen by Provider: 11/30/24 15:54 Source: patient Mode of arrival: ambulatory Limitations: no limitations History of Present Illness HPI narrative: Surely is a very pleasant 64-year-old female with a history of atrial fibrillation cardioversion alcohol abuse noon and bipolar disorder who comes to the emergency room for evaluation regarding irregular heartbeat. Patient notes that she felt extra beats today. She does agree that every time she feels this she has some pain in her chest lasting a 2nd or so. She has not had a new cough but reports chronic cough because of her tobacco use. Unfortunately she does continue to smoke. Today she states that she had a 6 pack of beer. She denies abdominal pain nausea vomiting fever. She is unsure of who she sees as a charge weigher but has an appointment with them this week. Her friend accompanies her here today. Related Data Home Medications ?Medication ?Instructions ?Recorded ?Confirmed cholecalciferol (vitamin D3) 50 50 mcg PO QDAY 01/30/24 11/19/24 mcg (2,000 unit) capsule magnesium citrate 100 mg capsule 100 mg PO QDAY 01/30/24 11/19/24 ondansetron 4 mg disintegrating 4 mg PO Q8H PRN nausea/vomiting 02/24/24 11/19/24 tablet metoprolol succinate 50 mg 50 mg PO QDAY 07/09/24 11/30/24 tablet,extended release 24 hr Previous Rx's ?Medication ?Instructions ?Recorded potassium chloride 10 mEq 10 meq PO QDAY #90 caps 04/20/24 capsule,extended release quetiapine 25 mg tablet 25 mg PO BID 90 days #180 tabs 04/20/24 sumatriptan succinate 100 mg tablet See Rx Instructions PO .COMPLEX 04/20/24 #10 tabs quetiapine 300 mg tablet 300 mg PO QPM #90 tabs 05/26/24 fluoxetine 10 mg capsule 10 mg PO QDAY #90 caps 06/10/24 fluoxetine 20 mg capsule 20 mg PO QDAY #90 caps 06/10/24 warfarin 2 mg tablet 2 mg PO .COMPLEX #30 tabs 06/15/24 warfarin 3 mg tablet 3 mg PO QDAY #90 tabs 06/24/24 gabapentin 100 mg capsule 100 mg PO 3XD 90 days #270 caps 06/30/24 gabapentin 600 mg tablet 600 mg PO 3XD 90 days #270 tabs 06/30/24 losartan 100 mg tablet 100 mg PO QDAY #90 tabs 07/09/24 clonazepam 0.5 mg tablet 0.5 mg PO BID PRN anxiety #180 tabs 10/13/24 metoprolol tartrate 25 mg tablet 25 mg PO BID PRN Tachyarrhythmias 11/09/24 #30 tabs Allergies Allergy/AdvReac Type Severity Reaction Status Date / Time No Known Drug Allergies Allergy Verified 11/19/24 08:58 Review of Systems Status of ROS Reports: 10 or more systems reviewed and unremarkable except as noted in History and below Const Denies: fever, chills or fatigue Eyes Denies: change in vision ENMT Denies: throat pain or neck pain Cardio Reports: chest pain and palpitations; Denies: swelling of feet/ankles, lightheadedness or shortness of breath with exertion Resp Reports: cough; Denies: shortness of breath GI Denies: abdominal pain, nausea or vomiting Denies: painful urination Musculo Denies: neck pain Neuro Denies: headache Endo Denies: fatigue PFSH PFSH Medical History Atrial fibrillation with RVR ?I48.91 - Unspecified atrial fibrillation (ICD-10) History of cardioversion ?Z92.89 - Personal history of other medical treatment (ICD-10) Surgical History History of hysterectomy ?Z90.710 - Acquired absence of both cervix and uterus (ICD-10) Social History Smoking Status: Current every day smoker What tobacco products do you use: cigarettes Do you use any of these nicotine containing products: None How often do you have a drink containing alcohol: 4 or more times a week How many standard drinks containing alcohol do you have on a typical day: 3 or 4 AUDIT-C Alcohol total score: 5 Non-prescribed substance use: denies use Exam Narrative Exam Narrative: Patient is alert and oriented. She does not smell of alcohol but she is acting like she may be intoxicated. She is cooperative. Eyes are clear. Pupils are actually somewhat dilated but reactive. Head is atraumatic. Neck is supple. Lips are dry. Heart with a regular rate and rhythm. Lungs are clear bilaterally. Abdomen soft. Lower extremities without edema. Moving all extremities. Const Vital Signs, click to edit/add: Vital Signs - 24 hr 11/30/24 15:47 11/30/24 16:47 11/30/24 16:52 Temperature 97.5 F L Pulse Rate 68 69 Pulse Rate [Pulse Oximeter] 78 Respiratory Rate 20 18 22 Blood Pressure 149/83 H Blood Pressure [Right Upper Arm] 134/83 Pulse Oximetry 95 96 98 Oxygen Delivery Method Room Air 11/30/24 16:53 11/30/24 17:00 11/30/24 17:02 Temperature Pulse Rate 68 67 67 Pulse Rate [Pulse Oximeter] Respiratory Rate 16 12 23 Blood Pressure 154/90 H Blood Pressure [Right Upper Arm] Pulse Oximetry 97 96 95 Oxygen Delivery Method 11/30/24 17:15 11/30/24 17:30 11/30/24 17:45 Temperature Pulse Rate 69 67 68 Pulse Rate [Pulse Oximeter] Respiratory Rate 23 12 14 Blood Pressure Blood Pressure [Right Upper Arm] Pulse Oximetry 96 96 96 Oxygen Delivery Method 11/30/24 18:00 Temperature Pulse Rate 71 Pulse Rate [Pulse Oximeter] Respiratory Rate 21 Blood Pressure Blood Pressure [Right Upper Arm] Pulse Oximetry 98 Oxygen Delivery Method Documenting provider has reviewed patient's vital signs: yes Course Course ED Course: Differential diagnosis includes but is not limited to atrial fibrillation, acute coronary event, anxiety, alcohol intoxication, electrolyte imbalance. IV will be placed and will draw labs to include CBC, comprehensive panel, CRP, troponin, alcohol level, magnesium, proBNP. Reevaluation(s) Reevaluation #1: Patient has a negative troponin and reassuring EKG in sinus rhythm. Her alcohol level is negative which I find unusual as she does states she had a 6 pack of beer today. Will have them recheck that. Chest x-ray Vital Signs Vital signs: Initial Vital Signs Temperature 97.5 F L 11/30/24 15:47 Temperature Source Temporal Artery Scan 11/30/24 15:47 Pulse Rate 78 11/30/24 15:47 Respiratory Rate 20 11/30/24 15:47 Blood Pressure 134/83 11/30/24 15:47 Blood Pressure Mean 100 11/30/24 15:47 Pulse Oximetry 95 11/30/24 15:47 Oxygen Delivery Method Room Air 11/30/24 15:47 Vital Signs Temperature 97.5 F L 11/30/24 15:47 Pulse Rate 78 11/30/24 15:47 Respiratory Rate 20 11/30/24 15:47 Blood Pressure 134/83 11/30/24 15:47 Pulse Oximetry 95 11/30/24 15:47 Oxygen Delivery Method Room Air 11/30/24 15:47 Temperature 97.5 F L 11/30/24 15:47 Pulse Rate 71 11/30/24 18:00 Respiratory Rate 21 11/30/24 18:00 Blood Pressure 154/90 H 11/30/24 17:02 Pulse Oximetry 98 11/30/24 18:00 Oxygen Delivery Method Room Air 11/30/24 15:47 Medications Administered Medications: Discontinued Medications Generic Name Dose Route Start Last Admin Trade Name Freq PRN Reason Stop Dose Admin Sodium Chloride 1,000 mls @ 1,000 mls/hr 11/30/24 16:07 11/30/24 18:04 0.9 % Sodium Chloride 1000 Ml IV 11/30/24 17:06 Infused .Q1H [facility] Infusion MDM - Chest Pain MDM Narrative Medical decision making narrative: 1. Atypical chest pain -EKGs were reassuring and patient had 2- cardiac enzymes. She did not complain of any further chest pain in the ED. monitor showed sinus rhythm as did her EKGs. She had no nausea and was feeling much better in the ED. 2. History of atrial fibrillation-no evidence of AFib tonight although patient could be going in and out of AFib. Addendum: Her INR tonight is 1.91. I did call patient and for at home to inform her of of this. Tonight I would like her to take 4.5 mg. She states currently takes 3 mg every evening. She does have a pill cutter and I will have her take a half a tab additionally for a total of 4.5 mg tonight. She will need to follow-up with her primary clinic tomorrow for further instructions. 3. Alcohol use -alcohol is negative tonight. No evidence of withdrawal. Given her initial behavior when she arrived I had suspected that she may have some alcohol in her system. She states that she did drink a 6 pack of beer earlier today. At this time we do ask the lab to recheck and it comes back negative once again. Her behavior is much improved without any suspicion of alcohol after the initial arrival. 4. Disposition-home at this time. Patient has requested multiple times to go home and I was very appreciative when she did agree to stay for the 2nd troponin. She is again anxious to depart. I will call her with her INR and instruct her on further dosing. Patient is to return to the ER for worsening symptoms and as needed. Brief discussion regarding abstinence of alcohol and tobacco in the ED. she is very happy to go home. She is feeling much better after IV fluids. Medical Records Data Attestation: I reviewed the patient's medical records. Lab Data Attestation: I reviewed the patient's lab results. Labs: Lab Results 11/30/24 11/30/24 11/30/24 Range/Units 16:06 16:25 18:00 WBC 5.79 (4.50-11.00) K/uL RBC 4.35 (4.00-5.20) m/uL Hgb 14.9 (12.0-16.0) gm/dL Hct 45.0 (33.0-51.0) % MCV 103 H (80-100) fL MCH 34 (26-34) pg MCHC 33 (32-36) gm/dL RDW Coeff of Yvon 14.5 (11.5-15.5) % Plt Count 243 (140-440) K/uL Neut % (Auto) 52.3 (42.0-72.0) % Lymph % (Auto) 37.0 (20-44) % Jackson % (Auto) 8.5 (0.0-11.0) % Eos % (Auto) 1.0 (0.0-7.0) % Baso % (Auto) 1.0 (0.0-3.0) % Neut # (Auto) 3.03 (1.7-7.0) K/uL Lymph # (Auto) 2.14 (0.90-2.90) K/uL Jackson # (Auto) 0.50 (0.00-0.90) K/UL Eos # (Auto) 0.06 (0.00-0.50) K/uL Baso # (Auto) 0.06 (0.00-0.30) K/uL Abs Immat Gran (auto) 0.01 (0.00-0.30) K/uL Imm/Tot Granulo (auto) 0.2 % INR 1.91 H (0.91-1.10) Sodium 133 L (135-149) mmol/L Potassium 4.3 (3.6-5.1) mmol/L Chloride 107 (96-114) mmol/L Carbon Dioxide 17 L (20-32) mmol/L Anion Gap 9 (7-15) mEq/L BUN 15 (7-30) mg/dL Creatinine 1.2 (0.5-1.5) mg/dL Estimated Creat Clear 42.62 Estimated GFR 51 ml/min Glucose 98 (60-115) mg/dL Calcium 8.4 (8.4-10.6) mg/dL Magnesium 1.9 (1.5-2.6) mg/dL Total Bilirubin 0.4 (0.1-1.5) mg/dL AST 35 (12-35) U/L ALT 23 (4-35) U/L Alkaline Phosphatase 99 (40-150) U/L C-Reactive Protein < 0.5 L (0.5-1.0) mg/dL NT-Pro-B Natriuret Pep 2910 pg/mL Total Protein 7.2 (6.0-8.3) g/dL Albumin 4.2 (3.3-5.0) g/dL Urine Opiates Screen (Negative) Ur Oxycodone Screen (Negative) Urine Methadone Screen (Negative) Ur Barbiturates Screen (Negative) U Tricyclic Antidepress (Negative) Ur Phencyclidine Scrn (Negative) Ur Amphetamines Screen (Negative) U Methamphetamines Scrn (Negative) U Benzodiazepines Scrn (Negative) Urine Cocaine Screen (Negative) U Marijuana (THC) Screen (Negative) Ur Drug Screen Comment Ethyl Alcohol < 0.01 L (0.01-0.03) % Lab Acknowledgement POC Troponin I 0.01 0.01 (0.01-0.04) ng/ml 11/30/24 11/30/24 Range/Units 18:09 18:29 WBC (4.50-11.00) K/uL RBC (4.00-5.20) m/uL Hgb (12.0-16.0) gm/dL Hct (33.0-51.0) % MCV (80-100) fL MCH (26-34) pg MCHC (32-36) gm/dL RDW Coeff of Yvon (11.5-15.5) % Plt Count (140-440) K/uL Neut % (Auto) (42.0-72.0) % Lymph % (Auto) (20-44) % Jackson % (Auto) (0.0-11.0) % Eos % (Auto) (0.0-7.0) % Baso % (Auto) (0.0-3.0) % Neut # (Auto) (1.7-7.0) K/uL Lymph # (Auto) (0.90-2.90) K/uL Jackson # (Auto) (0.00-0.90) K/UL Eos # (Auto) (0.00-0.50) K/uL Baso # (Auto) (0.00-0.30) K/uL Abs Immat Gran (auto) (0.00-0.30) K/uL Imm/Tot Granulo (auto) % INR (0.91-1.10) Sodium (135-149) mmol/L Potassium (3.6-5.1) mmol/L Chloride (96-114) mmol/L Carbon Dioxide (20-32) mmol/L Anion Gap (7-15) mEq/L BUN (7-30) mg/dL Creatinine (0.5-1.5) mg/dL Estimated Creat Clear Estimated GFR ml/min Glucose (60-115) mg/dL Calcium (8.4-10.6) mg/dL Magnesium (1.5-2.6) mg/dL Total Bilirubin (0.1-1.5) mg/dL AST (12-35) U/L ALT (4-35) U/L Alkaline Phosphatase (40-150) U/L C-Reactive Protein (0.5-1.0) mg/dL NT-Pro-B Natriuret Pep pg/mL Total Protein (6.0-8.3) g/dL Albumin (3.3-5.0) g/dL Urine Opiates Screen Negative (Negative) Ur Oxycodone Screen Negative (Negative) Urine Methadone Screen Negative (Negative) Ur Barbiturates Screen Negative (Negative) U Tricyclic Antidepress Negative (Negative) Ur Phencyclidine Scrn Negative (Negative) Ur Amphetamines Screen Negative (Negative) U Methamphetamines Scrn Negative (Negative) U Benzodiazepines Scrn Negative (Negative) Urine Cocaine Screen Negative (Negative) U Marijuana (THC) Screen Negative (Negative) Ur Drug Screen Comment See Note Ethyl Alcohol (0.01-0.03) % Lab Acknowledgement Test Added POC Troponin I (0.01-0.04) ng/ml Imaging Data Chest x-ray: Attestation: I have reviewed the pertinent imaging results. My impression: No obvious infiltrate Radiologist's impression: Lungs: Normal lung volume. No consolidation. Vascular redistribution. Pleura: No pleural effusion or pneumothorax. Heart and Mediastinum: Normal heart size. The great vessels of the thorax are unremarkable. Bones: No acute displaced osseous process. IMPRESSION: No consolidation. ECG Data Attestation: I personally reviewed and interpreted this ECG as follows: ECG interpretation date: 11/30/24 Interpretation: EKG by my read shows normal sinus rhythm at a rate of 68. Perhaps some flattening of the T-waves in the lateral leads but otherwise no acute changes. QT and PA intervals within normal limits. EKG 2. By my read shows sinus rhythm at a rate of 68. Nonspecific ST and T-wave abnormality persists but is not markedly worse. Discharge Plan Discharge Clinical Impression: Atypical chest pain, History of atrial fibrillation, History of alcohol abuse Patient Disposition: Home, Self-Care Condition: Improved Additional Instructions: Rest tonight, avoid alcohol. I will call you with the results of your INR. Please provide an accurate phone number to our nursing staff. Return for worsening symptoms and as needed. Prescriptions: No Action cholecalciferol (vitamin D3) 50 mcg (2,000 unit) capsule 50 mcg PO QDAY magnesium citrate 100 mg capsule 100 mg PO QDAY sumatriptan succinate 100 mg tablet See Rx Instructions PO .COMPLEX Qty: 10 6RF Rx Instructions: take 1 tab at onset of headache; if no relief, may repeat 1 tab after at least 2 hrs; max = 2 tabs/24 hrs PO quetiapine 25 mg tablet 25 mg PO BID 90 Days Qty: 180 3RF Rx Instructions: take 25 mg b.i.d. with 300 mg at bedtime potassium chloride 10 mEq capsule, extended release 10 meq PO QDAY Qty: 90 3RF metoprolol succinate 50 mg tablet extended release 24 hr 50 mg PO QDAY losartan 100 mg tablet 100 mg PO QDAY Qty: 90 3RF ondansetron 4 mg tablet,disintegrating 4 mg PO Q8H PRN (Reason: nausea/vomiting) quetiapine 300 mg tablet 300 mg PO QPM Qty: 90 3RF gabapentin 100 mg capsule 100 mg PO 3XD 90 Days Qty: 270 1RF Rx Instructions: in addition to 600 mg tid (700 mg tid) gabapentin 600 mg tablet 600 mg PO 3XD 90 Days Qty: 270 1RF Rx Instructions: in addition to 100 mg tid (700 mg tid) metoprolol tartrate 25 mg tablet 25 mg PO BID PRN (Reason: Tachyarrhythmias) Qty: 30 2RF fluoxetine 10 mg capsule 10 mg PO QDAY Qty: 90 3RF Rx Instructions: 10 mg in addition to 20 mg, for 30 mg dose daily. fluoxetine 20 mg capsule 20 mg PO QDAY Qty: 90 3RF Rx Instructions: 10 mg in addition to 20 mg, for 30 mg dose daily. warfarin 2 mg tablet 2 mg PO .COMPLEX Qty: 30 1RF Protocol: Dose Management Condition: Saturday Dose/Route: 3 mg Instruction: 1 x 3 mg tablet Condition: Saturday Dose/Route: 3 mg Instruction: 1 x 3 mg tablet Condition: Saturday Dose/Route: 3 mg Instruction: 1 x 3 mg tablet Condition: Saturday Dose/Route: 3 mg Instruction: 1 x 3 mg tablet Condition: Dose/Route: 3 mg Instruction: 1 x 3 mg tablet Condition: Saturday Dose/Route: 3 mg Instruction: 1 x 3 mg tablet Condition: Saturday Dose/Route: 3 mg Instruction: 1 x 3 mg tablet Protocol Text: Adjustment Start Date: 11/26/24 INR Value: 2.2 INR Date: 11/26/24 Recheck Date: 12/10/24 Rx Instructions: 2 mg orally alternating with Coumadin 3 mg: Coumadin 3 mg daily on Saturday, Saturday, Saturday, Saturday: Coumadin 2 mg the remainder of the week, Saturday, , and Saturday warfarin 3 mg tablet 3 mg PO QDAY Qty: 90 1RF Protocol: Dose Management Condition: Saturday Dose/Route: 3 mg Instruction: 1 x 3 mg tablet Condition: Saturday Dose/Route: 3 mg Instruction: 1 x 3 mg tablet Condition: Saturday Dose/Route: 3 mg Instruction: 1 x 3 mg tablet Condition: Saturday Dose/Route: 3 mg Instruction: 1 x 3 mg tablet Condition: Dose/Route: 3 mg Instruction: 1 x 3 mg tablet Condition: Saturday Dose/Route: 3 mg Instruction: 1 x 3 mg tablet Condition: Saturday Dose/Route: 3 mg Instruction: 1 x 3 mg tablet Protocol Text: Adjustment Start Date: 11/26/24 INR Value: 2.2 INR Date: 11/26/24 Recheck Date: 12/10/24 Rx Instructions: Coumadin 3 mg daily on Saturday, Saturday, Saturday, Saturday: Coumadin 2 mg the remainder of the week, Saturday, , and Saturday clonazepam 0.5 mg tablet 0.5 mg PO BID PRN (Reason: anxiety) Qty: 180 0RF Follow Up/Referrals: Swati Higginbotham APRN, [employer] [Primary Care Provider] - Stand Alone Forms: [facility] Info Instructions
--- NOTE | 2024-11-30 16:06 | CRLHL7_ITS ---
For Patients: As a result of the Century Cures Act, medical imaging exams and procedure reports are released immediately into your electronic medical record. You may view this report before your referring provider. If you have questions, please contact your health care provider. INDICATION: Rapid heart rate. TECHNIQUE: Chest 1 views. COMPARISON: None. FINDINGS: Lungs: Normal lung volume. No consolidation. Vascular redistribution. Pleura: No pleural effusion or pneumothorax. Heart and Mediastinum: Normal heart size. The great vessels of the thorax are unremarkable. Bones: No acute displaced osseous process. IMPRESSION: No consolidation. Dictated by Jose Antonio Sellers MD @ 11/30/2024 5:24:46 PM (Electronically Signed)
--- OUTSIDE RECORDS SUMMARY | 2024-11-30 16:14 | XMS_ITS | Clinical Summary ---
Author Organization [facility] Address [address] [place] [address] Care Team Providers Care Montessori Lead Teacher Name Role Phone Asael Smtih M.D. Primary Care Provider Source Comments Patient records contain information from all sites at [facility]. For routine questions regarding patient records, call [phone] during business hours, M-F 8:00 AM - 5:00 PM Central Time. Record requests for emergency care only can be directed to [phone] at any time.[facility] Allergies Active Allergy Reactions Criticality [...] screening. Assessment & Plan (11/12/2022 4:47 PM ELEVATED WORK PLATFORM OPERATOR): Patient open to receiving a Cologuard. Declines low-dose lung cancer screening. Must schedule mammogram. Impaired Fasting Glucose 11/18/2018 Overview (12/04/2022): 2020: Normal fasting glucose November 2022: Fasting blood glucose of 114. Repeat in 1 years time. She has a history of intermittent elevated fasting blood glucoses, the highest of which was 121. Assessment & Plan (11/12/2022 4:39 PM ELEVATED WORK PLATFORM OPERATOR): Repeat fasting blood glucose. Dyslipidemia 11/18/2018 Overview (11/12/2022): Images from the original note were not included. February 2022: Elevated triglycerides. Lipids 02/15/2022 11:09 AM CHOLESTEROL 297 TRIGLYCERIDES 446 HDL 57 LDL CALC CANCELED Assessment & Plan (11/12/2022 4:46 PM ELEVATED WORK PLATFORM OPERATOR): No indication yet repeat lipid panel at this time. We will plan to repeat in approximately 4 years, as part of her drug monitoring therapy. Monitoring For Therapeutic Drug Therapy 05/15/20 18 Overview (01/06/2024): Controlled Substance Prescribing Plan: Stimulants and Benzodiazepines This patient is expected to be on controlled substances jail. Diagnosis: Generalized anxiety disorder, bipolar disorder Previous [...] Monitoring Frequency of visits: 6 month Overseeing oracle adf consultant: Dr. Back and Consultants [facility] review/documentation:yes Urine drug screening requested?: no Urine screening frequency:other- not indicated 01/2024: Patient stated she is going to a doctor in [place] and does not wish to doctor in [place] because we are not going back to her current benzo dosing and regimen. Follow up as needed. Assessment & Plan (12/20/2023 12:32 PM CDT): Refer to anxiety generalized Disorder regarding clonazepam Assessment & Plan (04/15/2023 11:24 AM CDT): Please see assessment and plan for anxiety generalized disorder. Patient should be assessed by Psychiatry. Assessment & Plan (11/12/2022 4:45 PM ELEVATED WORK PLATFORM OPERATOR): Please refer to anxiety assessment and [...] years. Assessment & Plan (09/16/2020 11:10 AM ELEVATED WORK PLATFORM OPERATOR): - No changes to CSA. - 6 mo f/u Anxiety Generalized Disorder 01/14/2017 Overview (01/06/2024): Stable on: - Gabapentin 700 mg TID - Prozac 30 mg qd - Seroquel 300. - Klonopin 0.5 mg morning, 0.25 mg PRN 2-3 x a week. Controlled Substance Prescribing Plan: Stimulants and Benzodiazepines This patient is expected to be on controlled substances jail. Diagnosis: Generalized anxiety disorder, bipolar disorder Previous [...] FURTHER REFILLS (last visit was 12/2023 Overseeing oracle adf consultant: PCP/Consultants. [facility] review/documentation:yes Urine drug screening requested?: no Urine screening frequency:other- not indicated 11/2022: Patient requested a dose increase. Spoke with Dr. Chow and he advised against increasing clonazepam frequency. Plans to see patient on 11/23/2022. 04/15/2023: Patient did not show up to Psychiatry visit. No changes to her medication changes recently. Still is taking clonazepam regularly. Good social support system with friends and scientology. No red flags. 07/2023: PSY recs - no clonazepam change for now, f/u in six weeks to discuss taper. 12/2023: reduced to 0.25 qAM, 0.25 qPM 2-3 times per week. 01/2024: Patient stated she is going to a doctor in [place] and does not wish to doctor in [place] because we are not going back to [...] time. Assessment & Plan (11/12/2022 4:43 PM ELEVATED WORK PLATFORM OPERATOR): Unfortunately, this is a difficult situation. [...] instead. Assessment & Plan (11/12/2022 4:39 PM ELEVATED WORK PLATFORM OPERATOR): Patient has been offered enrollment in [...] clonazepam Assessment & Plan (11/12/2022 4:46 PM ELEVATED WORK PLATFORM OPERATOR): Please see psychiatry notes and the anxiety assessment and plan. Assessment & Plan (09/16/2020 11:10 AM ELEVATED WORK PLATFORM OPERATOR): - Continue current medications. - 6 mo CSA recheck. 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 2021: [...] recheck. Assessment & Plan (11/12/2022 4:39 PM ELEVATED WORK PLATFORM OPERATOR): Plan to increase amlodipine to 7.5 [...] Recorded In the past 12 months has [employer], oil, or water [employer] threatened to shut off services in your [...] week 02/15/2022 How often do you attend [facility] or oriental orthodox services? 1 to 4 times per year 02/15/2022 Do you belong to any clubs o r organizations such as scientology groups, unions, fraternal or athletic groups, or [...] Answer Date Recorded PHQ-2 Score 0 12/20/2023 [facility] - Occupational [...] your living situation today? I have a [facility] place to live 12/20/2023 Education Answer Date Recorded What is the highest level of school you have completed or the highest degree you have received? 12th grade 08/12/2019 Comments No Sex and Gender Information Value Date Recorded Sex Assigned at Female 12/20/2023 8:28 AM CDT Legal Sex Female 7:40 PM ELEVATED WORK PLATFORM OPERATOR Gender Identity Female 12/20/2023 8:28 AM [...] BLOOD ADD-ON Final Result Performing Organization Address City/[facility]/ZIP Co de Phone Number [facility] [address] [place] [address], [facility] DTL [facility] [address] [place] [address] * (ABNORMAL) Lipid Panel (02/15/2022 11:09 AM CDT) [facility] Cholesterol, Total 297(H) mg/dL 2021 3:37 [...] B.A.O. LAB BLOOD ADD-ON Final Result [facility] [address] [place] [address], [place] DTL [facility] [address] [place] [address] from Last 3 Months or Most Recently Relevant to Health Maintenance Care Teams Montessori Lead Teacher Relationship Specialty Start Date End Date Asael Smith M.D. [address] [place] [id number] PCP - General 04/06/24
--- OUTSIDE RECORDS SUMMARY | 2024-11-30 16:14 | XMS_ITS | Clinical Summary ---
Author Organization [facility] Address [address] [place] [address] Care Team Providers Care Personnel Clerks Supervisor Name Role Phone Swati Higginbotham NP Primary Care Provider [phone] Allergies Active Allergy Reactions Criticality Noted Date [...] Type Department Care Team Description 11/09/2024 Telephone [place] [id number] Aydin [place] MD Atrial Fibrillation from Last [...] Preferences, Provider to review later Care Teams Personnel Clerks Supervisor Relationship Specialty Start Date End Date Swati Higginbotham, ZONING ADMINISTRATOR [address] [place] [address] PCP - General 04/17/24
[2024-11-30 16:36] LABS: Basophils Absolute Auto 0.06 K/uL (0.00-0.30); Eosinophils Absolute Auto 0.06 K/uL (0.00-0.50); Hemoglobin* 14.9 gm/dL (12.0-16.0); Immature Granulocytes Abs Auto 0.01 K/uL (0.00-0.30); Immature Granulocytes Pct Auto 0.2 %; Lymphocytes Absolute Auto 2.14 K/uL (0.90-2.90); Mean Corpuscular HGB Conc 33 gm/dL (32-36); Mean Corpuscular Hemoglobin 34 pg (26-34); Mean Corpuscular Volume 103 fL (80-100); Monocytes Percent Auto 8.5 % (0.0-11.0); Neutrophils Absolute Auto 3.03 K/uL (1.7-7.0); Neutrophils Percent Auto 52.3 % (42.0-72.0); Platelet Count* 243 K/uL (140-440); RDW Coefficient of Variation % 14.5 % (11.5-15.5); Red Blood Count 4.35 m/uL (4.00-5.20); Slide Review Reflex No; White Blood Count* 5.79 K/uL (4.50-11.00)
[2024-11-30] MEDS: 0.9 % SODIUM CHLORIDE 1000 ml 1,000 ML IV (16:40)
[2024-11-30 16:48] LABS: Troponin, Point-of-Care* 0.01 ng/ml (0.01-0.04)
[2024-11-30 16:53] LABS: Albumin* 4.2 g/dL (3.3-5.0); Chloride* 107 mmol/L (96-114)
[2024-11-30 16:54] LABS: Potassium* 4.3 mmol/L (3.6-5.1); Sodium* 133 mmol/L (135-149)
[2024-11-30 16:56] LABS: Creatinine* 1.2 mg/dL (0.5-1.5); Est. Creatinine Clearance* 42.62; Estimated Glomerular Filt Rate 51 ml/min
[2024-11-30 16:57] LABS: Alanine Aminotransferase* 23 U/L (4-35); Alkaline Phosphatase* 99 U/L (40-150); Anion Gap 9 mEq/L (7-15); Aspartate Amino Transferase* 35 U/L (12-35); Bilirubin Total* 0.4 mg/dL (0.1-1.5); Blood Urea Nitrogen* 15 mg/dL (7-30); Calcium* 8.4 mg/dL (8.4-10.6); Carbon Dioxide* 17 mmol/L (20-32); Glucose* 98 mg/dL (60-115); Magnesium* 1.9 mg/dL (1.5-2.6); Total Protein* 7.2 g/dL (6.0-8.3)
[2024-11-30 16:58] LABS: Ethanol* < 0.01 % (0.01-0.03)
[2024-11-30 17:00] LABS: C Reactive Protein* < 0.5 mg/dL (0.5-1.0)
[2024-11-30 17:06] LABS: NT Pro B Type NatriureticPept* 2910 pg/mL
[2024-11-30 18:25] LABS: Troponin, Point-of-Care* 0.01 ng/ml (0.01-0.04)
[2024-11-30 18:28] LABS: Amphetamine Screen Urine Negative (Negative); Barbiturate Screen Urine Negative (Negative); Benzodiazepines Screen Urine Negative (Negative); Cannabinoid Screen Urine Negative (Negative); Cocaine Screen Urine Negative (Negative); Methadone Screen Urine Negative (Negative); Methamphetamines Screen Urine Negative (Negative); Opiate Screen Urine Negative (Negative); Oxycodone Screen Urine Negative (Negative); Phencyclidine Screen Urine Negative (Negative); Tricyclic Antidepressant Urine Negative (Negative)
[2024-11-30 18:46] LABS: INR 1.91 (0.91-1.10); Prothrombin Time 22.9 Seconds
== END 2024-11-30 18:44 | disposition home or self-care (01) ==
PROVIDERS: Emergency Provider Family Medicine; PCP Nurse Practitioner Family
DX: R07.89 Other chest pain (principal); I48.91 Unspecified atrial fibrillation
CPT/HCPCS: 36415; 71045; 80053; 80306; 82077; 83735; 83880; 84484; 85025; 85610; 86140; 93005; 96360; 99284; 99285; J7030

== ENCOUNTER 2024-12-28 13:10 | Outpatient (CLI) | payer OTHER, SELFPAY | END 2024-12-28 13:11 | disposition home or self-care (01) | PROVIDERS: PCP Nurse Practitioner Family; Visit Provider Internal Medicine Cardiovascular Disease | DX: Z86.79 Personal history of other diseases of the circulatory system (principal); I51.7 Cardiomegaly; I07.1 Rheumatic tricuspid insufficiency | CPT/HCPCS: 93306 ==

== ENCOUNTER 2025-01-19 10:53 | Outpatient (CLI) | payer OTHER, SELFPAY | END 2025-01-19 10:54 | disposition home or self-care (01) | PROVIDERS: PCP Nurse Practitioner Family; Visit Provider Nurse Practitioner Family | DX: E78.5 Hyperlipidemia, unspecified (principal); I10 Essential (primary) hypertension | CPT/HCPCS: 80053; 80061; 85025 ==

== ENCOUNTER 2025-02-04 12:24 | Outpatient (CLI) | payer OTHER, SELFPAY | END 2025-02-04 12:25 | disposition home or self-care (01) | PROVIDERS: PCP Nurse Practitioner Family; Visit Provider Nurse Practitioner Family | DX: D53.9 Nutritional anemia, unspecified (principal); R79.0 Abnormal level of blood mineral | CPT/HCPCS: 82607; 82728; 82746; 83540; 83550; 85045 ==

== ENCOUNTER 2025-02-18 10:06 | Outpatient (CLI) | payer OTHER, SELFPAY | END 2025-02-18 10:07 | disposition home or self-care (01) | LOC: NFLDREF 02-25 23:54 | PROVIDERS: PCP Nurse Practitioner Family; Referring Provider Nurse Practitioner Family; Visit Provider Nurse Practitioner Family | DX: Z79.01 Long term (current) use of anticoagulants (principal); I48.91 Unspecified atrial fibrillation; R79.0 Abnormal level of blood mineral | CPT/HCPCS: 81256; 82728; 83540; 83550; 85610 ==

== ENCOUNTER 2025-03-11 07:20 | Outpatient (CLI) | payer OTHER, SELFPAY | END 2025-03-11 07:21 | disposition home or self-care (01) | PROVIDERS: PCP Nurse Practitioner Family; Visit Provider Nurse Practitioner Family | DX: I10 Essential (primary) hypertension (principal); Z13.0 Encounter for screening for diseases of the blood and blood-forming organs and certain disorders involving the immune mechanism; Z79.01 Long term (current) use of anticoagulants | CPT/HCPCS: 80048; 82728; 83540 ==

== ENCOUNTER 2025-04-26 14:16 | Outpatient (CLI) | payer OTHER, SELFPAY | END 2025-04-26 14:17 | disposition home or self-care (01) | PROVIDERS: PCP Nurse Practitioner Family; Visit Provider Nurse Practitioner Family | DX: E78.5 Hyperlipidemia, unspecified (principal) | CPT/HCPCS: 80061; 80076 ==

== ENCOUNTER 2025-05-17 16:28 | Emergency (ER) | payer OTHER, SELFPAY ==
[2025-05-17] VITALS (10 sets, daily range): BP systolic 160–183; BP diastolic 87–100; PULSE 70–84; RESP 16–18; TEMP 36.1; O2SAT 94–96; BMI 31.6
--- OUTSIDE RECORDS SUMMARY | 2025-05-17 16:32 | XMS_ITS | Clinical Summary ---
Author Organization [facility] Address [address] [place] [address] Care Team Providers Care Grain Elevator Superintendent Name Role Phone Swati Higginbotham NP Primary Care Provider [phone]- [phone] Allergies Active Allergy Reactions Criticality Noted Date [...] mouth two times daily. Morning and afternoon 3 Active QUEtiapine (SEROQUEL) 300 mg tablet Take 300 mg by mouth at bedtime. Active SUMAtriptan (IMITREX) 100 mg tablet Take 100 mg by mouth one time if needed for Migraine. May repeat dose once in 2 hours if migraine is unresolved. Do not exceed 200 mg in 24 hours. 3 Active warfarin (COUMADIN) 2 mg tablet As directed 2 mg. On Saturday, , Saturday 4 Active warfarin (COUMADIN) 3 mg tablet Take 3 mg by mouth. On Saturday, Saturday, Saturday, and Saturday 4 Active acetaminophen (Tylenol Extra Strength) 500 mg tablet Take 1,000 mg by mouth every 6 hours if needed. Max acetaminophen dose: 4000mg in 24 hrs. Active gabapentin (NEURONTIN) 100 mg capsule Take 100 mg by mouth three times daily. Take with 600 mg tablet for total dose of 700 mg TID. Active losartan (COZAAR) 50 mg tabletIndicati ons:Hypertensi on Take 1 Tablet (50 mg) by mouth once daily. 90 Tablet 3 4 Active amiodarone 200 mg tabletIndicati ons:Encounter for monitoring amiodarone therapy Take 200mg twice a day x 1 month then decrease to 200mg daily 120 Tablet 2 5 Active Social History Tobacco Use Types Packs/Day Years [...] Sign Reading Time Taken Comments Blood Pressure 168/82 12/10/2024 3:57 PM GATE SUPERVISOR Pulse 73 12/10/2024 3:57 PM GATE SUPERVISOR Temperature 36.5 C (97.7 F) 07/06/2024 10:32 AM CDT Respiratory Rate 16 07/06/2024 10:32 AM CDT Oxygen Saturation 97% 12/10/2024 3:57 PM GATE SUPERVISOR Inhaled Oxygen Concentration - - Weight 86.2 kg (190 lb) 12/10/2024 3:57 PM GATE SUPERVISOR Height 160 cm (5' 3) 12/10/2024 3:57 PM GATE SUPERVISOR Body Mass Index 33.66 12/10/2024 3:57 PM GATE SUPERVISOR Plan of Treatment Upcoming Encounters Date Type Department Care Team (Late st Contact Info) Description 07/14/2025 3:00 PM CDT Office Visit [facility] [address] [facility] [address] [place] [address] Lisandro Parra MD [address] [place] [address] Health Maintenance Due Date Last Done Comments Tetanus booster 1971 Depression screening for age 12+ 1972 HIV for age 15-65 1975 Hepatitis C screening for ag e 18-79 1978 Pneumococcal series for age 50+ (1 of 2 - PCV) 1979 Pap test for age 21-65 1981 Colonoscopy through age 75 2005 Lipids for age 45-75 2005 Mammogram for age 45-75 2005 Zoster (shingles) series for age 50+ (1 of 2) 2010 COVID-19 vaccine series ( season) 2024 01/13/2021, 12/20/2020 Influenza Vaccine (#1) 2025 BMI (ht and wt on same day) for age 18+ 12/10/2025 12/10/2024 RSV vaccine for adults or (1 - 1-dose 75+ series) 2035 Hepatitis B series for 19+ Aged Out N o longer eligible based on patient's age to complete this topic Insurance [employer] Advance Directives * Full Code (Latest Code Status on File) Date Activated Date Inactivated Comments 07/06/2024 12:32 PM 07/06/2024 6:00 PM Question Answer Comments Code Status Discussion: Unable to Assess Preferences, Provider to review later Care Teams Grain Elevator Superintendent Relationship Specialty Start Date End Date Swati Higginbotham, FRAUD PREVENTION ANALYST [address] [place] [id number] PCP - General 04/17/24
--- OUTSIDE RECORDS SUMMARY | 2025-05-17 16:32 | XMS_ITS | Clinical Summary ---
Author Organization [facility] Address [address] [place] [address] Care Team Providers Care Small Package And Bundle Sorter Clerk Name Role Phone None Reported, Pcp Primary Care Provider Unavail able Source Comments Patient records contain information from all sites at [facility]. For routine questions regarding patient records, call [phone] during business hours, M-F 8:00 AM - 5:00 PM Central Time. Record requests for emergency care only can be directed to [phone] at any time.[facility] Allergies Active Allergy Reactions Criticality Noted [...] Assessment & Plan (11/12/2022 4:47 PM SEWING MACHINE OPERATOR FLOORPERSON): Patient open to receiving a Cologuard. Declines low-dose lung cancer screening. Must schedule mammogram. Impaired Fasting Glucose 11/18/2018 Overview (12/04/2022): 2020: Normal fasting glucose November 2022: Fasting blood glucose of 114. Repeat in 1 years time. She has a history of intermittent elevated fasting blood glucoses, the highest of which was 121. Assessment & Plan (11/12/2022 4:39 PM SEWING MACHINE OPERATOR FLOORPERSON): Repeat fasting blood glucose. Dyslipidemia 11/18/2018 Overview (11/12/2022): Images from the original note were not included. February 2022: Elevated triglycerides. Lipids 02/15/2022 11:09 AM CHOLESTEROL 297 TRIGLYCERIDES 446 HDL 57 LDL CALC CANCELED Assessment & Plan (11/12/2022 4:46 PM SEWING MACHINE OPERATOR FLOORPERSON): No indication yet repeat lipid panel at this time. We will plan to repeat in approximately 4 years, as part of her drug monitoring therapy. 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 Diagnosis: Generalized anxiety disorder, bipolar disorder [...] Monitoring Frequency of visits: 6 month Overseeing community health consultant: Dr. Back [facility] review/documentation:yes Urine drug screening requested?: no Urine screening frequency:other- not indicated 01/2024: Patient stated she is going to a doctor in [place] and does not wish to doctor in [place] because we are not going back to her current benzo dosing and regimen. Follow up as needed. Assessment & Plan (12/20/2023 12:32 PM CDT): Refer to anxiety generalized Disorder regarding clonazepam Assessment & Plan (04/15/2023 11:24 AM CDT): Please see assessment and plan for anxiety generalized disorder. Patient should be assessed by Psychiatry. Assessment & Plan (11/12/2022 4:45 PM SEWING MACHINE OPERATOR FLOORPERSON): Please refer to anxiety assessment and plan [...] Assessment & Plan (09/16/2020 11:10 AM SEWING MACHINE OPERATOR FLOORPERSON): - No changes to CSA. - 6 mo f/u Anxiety Generalized Disorder 01/14/2017 Overview (01/06/2024): Stable on: - Gabapentin 700 mg TID - Prozac 30 mg qd - Seroquel 300. - Klonopin 0.5 mg morning, 0.25 mg PRN 2-3 x a week. 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 Diagnosis: Generalized anxiety disorder, bipolar disorder [...] FURTHER REFILLS (last visit was 12/2023 Overseeing community health consultant: PCP/Consultants. [facility] review/documentation:yes Urine drug screening [...] Good social support system with friends and bahai. No red flags. 07/2023: PSY recs - no clonazepam change for now, f/u in six weeks to discuss taper. 12/2023: reduced to 0.25 qAM, 0.25 qPM 2-3 times per week. 01/2024: Patient stated she is going to a doctor in [place] and does not wish to doctor in [place] because we are not going back to [...] Assessment & Plan (11/12/2022 4:43 PM SEWING MACHINE OPERATOR FLOORPERSON): Unfortunately, this is a difficult situation. The [...] Assessment & Plan (11/12/2022 4:39 PM SEWING MACHINE OPERATOR FLOORPERSON): Patient has been offered enrollment in low-dose [...] Assessment & Plan (11/12/2022 4:46 PM SEWING MACHINE OPERATOR FLOORPERSON): Please see psychiatry notes and the anxiety assessment and plan. Assessment & Plan (09/16/2020 11:10 AM SEWING MACHINE OPERATOR FLOORPERSON): - Continue current medications. - 6 mo CSA recheck. Hypertension Essential Primary 05/18/2014 Overview (04/15/2023): 03/23/21: BP elevated in setting of multiple emotional stressors, PARAEDUCATOR return visit ordered in 1 month. 2021: [...] Assessment & Plan (11/12/2022 4:39 PM SEWING MACHINE OPERATOR FLOORPERSON): Plan to increase amlodipine to 7.5 mg [...] Date Smoking Tobacco: Every Day Cigarettes 1 49.8 Started: 08/08/1975 Passive Smoke Exposure: Current Smokeless Tobacco: Never Tobacco Cessation:Ready to Q uit: Not Asked; Counseling Given: Not Answered Alcohol Use Standard Drinks/Week Comments Never 0 (1 standard drink = 0.6 oz pur e alcohol) [facility] Utilities Answer Date Recorded In the past 12 months has [employer], gas, oil, or water [employer] threatened to shut off services in your [...] by your partner or ex-partner? No 02/15/2022 Hunger Vital Sign Answer Date Recorded Within [...] PHQ-9 Total Score (max 27) 0 12/19 Housing Stability Answer Date Recorded What is your living situation today? I have a [facility] place to live 12/20/2023 Education Answer Date Recorded What is the highest level of school you have completed or the highest degree you have received? 12th grade 08/12/2019 Comments No Sex and Gender Information Value Date Recorded Sex Assigned at Female 12/20/2023 8:28 AM CDT Legal Sex Female 7:40 PM SEWING MACHINE OPERATOR FLOORPERSON Gender Identity Female 12/20/2023 8:28 AM CDT [...] 1960 Lung Cancer Screening 1960 Mammogram 1960 RSV vaccine - (32-36 weeks) or 60+ years (1 - Risk 60-74 years 1-dose series) 2020 Tobacco Cessation counseling 04/15/2024 04/15/2023 COVID-19 Vaccine ( - season) 2024 01/13/2021, 12/20/2020 Depression Screening (Annual PHQ-2) 10/07/2024 DTaP,Tdap,and Td Vaccines (2 - Td or Tdap) 12/16/2024 12/16/2014 Office Visit for Blood Pressure Check / Re-check 12/19/2024 12/20/2023 Fasting Glucose for Diabetes Screening 02/21/2025 02/22/2024, 04/15/2023, 12/03/2022, Additional history exists Sodium Level 02/21/2025 02/22/2024, 04/06, 10/05/2021, Additional history exists Creatinine Level (Kidney Function Test) 07/06/2025 07/06/2024, 02/22/2024, 04/15/2023, Additional history exists Potassium Level 07/06/2025 07/06/2024, 02/04, 04/15/2023, Additional history exists Influenza Vaccine (#1) 2025 11/12/2022, 2021 Lipid (Cholesterol) Screening 02/15/2027 02/15/2022, 12/10/2019, 05/15/2018, [...] 8:27 AM CDT 04/15/2023 12:21 PM CDT us Branden De Oliveira B.Ch., B.A.O. LAB BLOOD ADD-ON Final Result Performing Organization Address City/[facility]/ZIP Co de Phone Number [facility] [address] [place] [address], [facility] [place]note 2[facility] [address] [place] [address] * (ABNORMAL) Lipid Panel (02/15/2022 11:09 AM CDT) [facility] Cholesterol, Total 297(H) mg/dL 2021 3:37 PM [...] 02/15/2022 3:09 PM CDT Branden De Oliveira, [place].Lore., B.A.O. LAB BLOOD ADD-ON Final Result Performing Organization Address City/[facility]/ZIP Co de Phone Number [facility] [address] [place] [address], [place] [facility] [address] [place] [address] from Last 3 Months or Most Recently Relevant to Health Maintenance Care Teams Small Package And Bundle Sorter Clerk Relationship Specialty Start Date End Date None Reported, Pcp PCP - General Family Medicine 01/13/25
--- NOTE | 2025-05-17 16:56 | CRLHL7_ITS ---
For Patients: As a result of the Century Cures Act, medical imaging exams and procedure reports are released immediately into your electronic medical record. You may view this report before your referring provider. If you have questions, please contact your health care provider. INDICATION: Syncope. Fall. Neck pain. COMPARISON: 06/10/2024. TECHNIQUE: Noncontrast CT head. FINDINGS: Mild generalized volume loss. Patchy low-attenuation change within the white matter consistent with chronic deep white matter small vessel ischemic changes. Normal calvarium and skull base. Visualized paranasal sinuses mastoid air cells are clear. Normal orbits bilaterally. IMPRESSION: 1. No acute intracranial abnormality. Please note that all CT scans at this facility use dose modulation, iterative reconstruction, and/or weight-based dosing when appropriate to reduce radiation dose to as low as reasonably achievable. Dictated by Rocky Arrington MD @ 05/17/2025 5:17:55 PM (Electronically Signed)
--- NOTE | 2025-05-17 16:56 | CRLHL7_ITS ---
For Patients: As a result of the Century Cures Act, medical imaging exams and procedure reports are released immediately into your electronic medical record. You may view this report before your referring provider. If you have questions, please contact your health care provider. INDICATION: Fall, syncope. Neck pain. COMPARISON: None. TECHNIQUE: Noncontrast CT cervical spine. FINDINGS: Straightening of normal cervical lordosis which may be secondary to muscle spasm or patient positioning. Trace degenerate anterolisthesis C3 on C4 measures approximately 4 mm. Otherwise, normal facet alignment. No acute fractures. No vertebral body loss of height. No fractures of the visualized upper ribs. No prevertebral soft tissue swelling. C1-2: No spinal canal narrowing. C2-3: No spinal canal neural foraminal narrowing. C3-4: No narrowing of spinal canal. Moderate narrowing of the left neural foramen. No narrowing of the right neural foramen. C4-5: Disc degeneration. Mild narrowing of spinal canal. No neural foraminal narrowing. C5-6: Advanced disc degeneration. Mild narrowing of spinal canal. Moderate severe right and mild left neural foraminal narrowing. C6-7: Disc degeneration. No narrowing of spinal canal. Mild narrowing of bilateral foramina. C7-T1: No spinal canal neural foraminal narrowing. IMPRESSION: 1. Straightening of the normal cervical lordosis. Trace degenerative retrolisthesis of C3 on C4. 2. Otherwise normal alignment. No acute fractures 3. Cervical spondylosis. 4. No prevertebral soft tissue swelling 5. Multilevel spinal canal and neural foraminal narrowing as described above. Please note that all CT scans at this facility use dose modulation, iterative reconstruction, and/or weight-based dosing when appropriate to reduce radiation dose to as low as reasonably achievable. Dictated by Rocky Arrington MD @ 05/17/2025 5:50:31 PM (Electronically Signed)
--- NOTE | 2025-05-17 17:01 | ED.GENADULT ---
HPI - General Adult General Date Seen: 05/17/25 Chief complaint: Major Trauma Stated complaint: passing out/falls and keeps hitting head Time Seen by Provider: 05/17/25 16:56 History of Present Illness HPI narrative: 64 yo F brought to the ate today with her friend for evaluation of head injury after a syncopal event. She apparently has a history of AFib. She is also on warfarin over the long-term. She is not sure what her recent INR has been. Past medical history also includes hypertension, hyperlipidemia, bipolar, anxiety, depression, nicotine dependence, migraine headaches. She reports that she has had multiple episodes of passing out over the past few weeks. She says she got up at about 6:00 a.m. this morning to let her dogs out and then had walked back into the her home from the patio to go back to a chair and apparently blacked out while on the way to the chair. It sounds like she was unconscious for a while, perhaps 10 or 15 minutes and then woke up. She has been having a bad headache in the occiput of her head. She says she has had it several times recently when she falls. She has also seemed confused and disoriented when her friend picked her up. Sounds like she could not tell her friend what day it was. In addition to her headache she also has pain in the back of her neck. She does not have any focal numbness or weakness in her arms or legs. No chest pain. No trouble breathing. No abdominal pain. No injury to her hip her pelvis. No injury to her extremities. She does have a bruise and abrasion on her right elbow and left hip apparently related to a fall last week. Her primary care provider is Swati Stone, in [place]. Last visit was in October 2024. According to those notes she had 2-3 weeks of generalized weakness, symmetric. And her provider recommended that she come to the emergency room but she refused. So her doctor did labs and set up with Cardiology outpatient follow-up. The labs showed WBC 6.3, hemoglobin 15, BUN 39, creatinine 2.3, magnesium 2, tender he TSH 0.6 lead 3. Follow-up labs on 03/11/2025 showed creatinine of 1.4. Related Data Home Medications ?Medication ?Instructions ?Recorded ?Confirmed cholecalciferol (vitamin D3) 50 50 mcg PO QDAY 01/30/24 01/19/25 mcg (2,000 unit) capsule magnesium citrate 100 mg capsule 100 mg PO QDAY 01/30/24 01/19/25 sotalol 80 mg tablet 80 mg PO BID 12/10/24 01/19/25 Previous Rx's ?Medication ?Instructions ?Recorded warfarin 3 mg tablet 3 mg PO QDAY #90 tabs 12/29/24 clonazepam 0.5 mg tablet 0.5 mg PO BID #180 tabs 01/19/25 fluoxetine 10 mg capsule 10 mg PO QDAY #90 caps 01/19/25 fluoxetine 20 mg capsule 20 mg PO QDAY #90 caps 01/19/25 gabapentin 100 mg capsule 100 mg PO 3XD 90 days #270 caps 01/19/25 gabapentin 600 mg tablet 600 mg PO 3XD #270 tabs 01/19/25 losartan 100 mg tablet 100 mg PO QDAY #90 tabs 01/19/25 ondansetron 4 mg disintegrating 4 mg PO Q8H PRN nausea/vomiting 01/19/25 tablet #12 tabs quetiapine 25 mg tablet 25 mg PO BID 90 days #180 tabs 01/19/25 quetiapine 300 mg tablet 300 mg PO QPM #90 tabs 01/19/25 sumatriptan succinate 100 mg tablet See Rx Instructions PO .COMPLEX 01/19/25 #10 tabs rosuvastatin 20 mg tablet (Crestor) 20 mg PO QDAY #90 tabs 04/29/25 Allergies Allergy/AdvReac Type Severity Reaction Status Date / Time No Known Drug Allergies Allergy Verified 01/19/25 10:19 PFSH PFS Medical History Atrial fibrillation with RVR ?I48.91 - Unspecified atrial fibrillation (ICD-10) Surgical History H/O wisdom tooth extraction ?K08.409 - Partial loss of teeth, unspecified cause, unspecified class (ICD-10) History of cardioversion ?Z92.89 - Personal history of other medical treatment (ICD-10) History of hysterectomy ?Z90.710 - Acquired absence of both cervix and uterus (ICD-10) Family History Sister Thyroid disease Diabetes Social History Smoking Status: Current every day smoker What tobacco products do you use: cigarettes Do you use any of these nicotine containing products: None How often do you have a drink containing alcohol: 4 or more times a week How many standard drinks containing alcohol do you have on a typical day: 3 or 4 AUDIT-C Alcohol total score: 5 Non-prescribed substance use: denies use Exam Narrative: Exam Narrative: Primary Survey: A- patent. Speaking clearly. Phonation normal. No stridor. B- breathing easily. Lung sounds clear and equal. Oxygen saturation normal on room air C- no active bleeding. Blood pressure stable. Symmetric pulses and cap refill in 4 extremities. D- she is currently alert and oriented x3. Somewhat slurred speech and acting very animatedly. GCS 15. No focal deficits. Constitutional: Appears well-developed and well-nourished. Alert. Conversant. Non toxic. HENT: Head: Atraumatic. Complains of pain in tenderness on the occipital skull. No depressed skull fracture, Raccoon Eyes, Restrepo's sign, or hemotympanum. Face normal. TMs normal Nose: Nose normal. Mouth/Throat: Oral mucosa is clear and moist. no trismus. Pharynx normal. Tonsils symmetric. No tonsillar enlargement, erythema, or exudate. Eyes: Conjunctivae normal. EOM normal. Pupils equal, round, and reactive to light. No scleral icterus. Neck: Normal range of motion. Neck supple. No tracheal deviation present. Diffuse posterior tenderness, including midline tenderness. No step-off. Cardiovascular: Normal rate, regular rhythm. No gallop. No friction rub. No murmur heard. Symmetric radial artery pulses Pulmonary/Chest: Effort normal. No stridor. No respiratory distress. No wheezes. No rales. No rhonchi . No tenderness. Abdominal: Soft.No distension. No mass. No tenderness. No rebound. No guarding. Musculoskeletal: RUE: Normal range of motion. No tenderness. No deformity LUE: Normal range of motion. No tenderness. No deformity RLE: Normal range of motion. No edema. No tenderness. No deformity LLE: Normal range of motion. No edema. No tenderness. No deformity Neurological: Alert and oriented to person, place, and time. Normal strength. CN II-VII intact. No sensory deficit. GCS eye subscore is 4. GCS verbal subscore is 5. GCS motor subscore is 6. Normal coordination Skin: Skin is warm and dry. No rash noted. No pallor. Normal capillary refill. Psychiatric: Normal mood. Normal affect. Const: Vital Signs, click to edit/add: Vital Signs - 24 hr 05/17/25 16:43 05/17/25 17:08 05/17/25 17:11 Temperature 97.0 F L Pulse Rate 78 Pulse Rate [Pulse Oximeter] 84 Respiratory Rate 16 16 Blood Pressure 168/100 H Blood Pressure [Ri ght Upper Arm] 165/87 H 168/100 H Pulse Oximetry 94 95 Oxygen Delivery Me thod Room Air 05/17/25 17:20 05/17/25 17:22 05/17/25 17:30 Temperature Pulse Rate 73 Pulse Rate [Pulse Oximeter] 73 73 Respiratory Rate 16 Blood Pressure 167/89 H Blood Pressure [Ri ght Upper Arm] 167/89 H 170/93 H Pulse Oximetry 96 94 95 Oxygen Delivery Me thod Room Air Room Air 05/17/25 17:33 05/17/25 17:45 05/17/25 17:50 Temperature Pulse Rate 73 Pulse Rate [Pulse Oximeter] 70 80 Respiratory Rate 16 18 16 Blood Pressure 170/93 H Blood Pressure [Ri ght Upper Arm] 171/97 H 183/96 H Pulse Oximetry 95 95 94 Oxygen Delivery Me thod Room Air Room Air 05/17/25 18:26 Temperature Pulse Rate Pulse Rate [Pulse Oximeter] 73 Respiratory Rate 18 Blood Pressure Blood Pressure [Ri ght Upper Arm] 160/89 H Pulse Oximetry 94 Oxygen Delivery Me thod Room Air Course Vital Signs Vital signs: Initial Vital Signs Temperature 97.0 F L 05/17/25 16:43 Temperature Source Temporal Artery Scan 05/17/25 16:43 Pulse Rate 84 05/17/25 16:43 Respiratory Rate 16 05/17/25 16:43 Blood Pressure 165/87 H 05/17/25 16:43 Blood Pressure Mean 113 H 05/17/25 16:43 Blood Pressure Position Sitting 05/17/25 16:43 Pulse Oximetry 94 05/17/25 16:43 Oxygen Delivery Method Room Air 05/17/25 16:43 Vital Signs Temperature 97.0 F L 05/17/25 16:43 Pulse Rate 84 05/17/25 16:43 Respiratory Rate 16 05/17/25 16:43 Blood Pressure 165/87 H 05/17/25 16:43 Pulse Oximetry 94 05/17/25 16:43 Oxygen Delivery Method Room Air 05/17/25 16:43 Temperature 97.0 F L 05/17/25 16:43 Pulse Rate 73 05/17/25 18:26 Respiratory Rate 18 05/17/25 18:26 Blood Pressure 160/89 H 05/17/25 18:26 Pulse Oximetry 94 05/17/25 18:26 Oxygen Delivery Method Room Air 05/17/25 18:26 Medications Administered Medications: Discontinued Medications Generic Name Dose Route Start Last Admin Trade Name Titi PRN Reason Stop Dose Admin Fentanyl 50 mcg 05/17/25 17:34 05/17/25 17:53 Fentanyl 100 Mcg/2 Ml Inj IVP 05/17/25 17:35 50 mcg ONCE ONE Administration Medical Decision Making [facility] Narrative Medical decision making narrative: 64-year-old female presenting to the ER today with her friend with concern for occipital headache after a unwitnessed fall leading to a head injury. 1. Trauma. Patient does have headache and posterior neck pain. She is sent for noncontrast head CT and CT C-spine. A trauma team activation was called by triage because of the head injury and active use of warfarin. Fortunately the noncontrast head CT and C-spine CT are negative for any acute traumatic injuries. She does not have any upper or lower back pain, rib pain, abdominal pain or hip or pelvic pain to suggest other traumatic injury. No evidence for any long bone orthopedic fractures. 2. Cardiac. Patient does report several episodes of falling over the past month and and episode this morning where she believes she passed out and possibly another episode a couple of weeks ago where she passed out. Consider cardiac causes of syncope. She has a known history of AFib. No known history of severe aortic stenosis or other valvular disease. She is denying any chest pain. EKG shows nonspecific T-wave inversions throughout but no definite new ischemia. Troponin is undetectable. I strongly recommend hospitalization for cardiac monitoring, echocardiogram, serial troponins and further workup to look for a potential cardiac cause of her syncope. 3. Neuro. Head CT is normal. She is not having any stroke symptoms at this time. This was an unwitnessed fall. Unclear if she truly fainted or if this might have been an unwitnessed seizure. I recommend workup for monitoring. 4. Alcoholism. Patient does have a detectable alcohol level of 0.13. When I discussed this with her and her friend they do endorse that she is a heavy drinker. Her drink of choice is beer. She typically drinks a 12 pack of beer every day. Some days she tries to take a day off from drinking. She know she has a problem with drinking but she does not want to come into the hospital to go through withdrawal and does not want to go through treatment. She notes that typically after she skips today she gets very shaky in her legs get shaky when she walks. It turns out that she actually had been abstinent from alcohol on Saturday, yesterday and that led to her fall this morning. I have concerned that her fall might actually have represented an alcohol withdrawal seizure rather than a syncopal event. Because she was shaky this morning, after her fall, she actually drank about a six-pack of beer this morning. When she presented behavior was somewhat erratic, consistent with alcohol intoxication and fits with her serum alcohol level. She is mildly anxious but conversant. She clearly understands our conversation and my recommendations. She is not tachycardic or tremulous. She is not showing clear active signs of florid alcohol withdrawal at this time. I think this reflects her alcohol consumption that occurred today after her fall. However I have concerned that she likely will develop alcohol withdrawal. I recommend hospitalization for workup of cardiac and neurologic conditions of her fall as well as for monitoring for evolving alcohol withdrawal. The patient strongly and firmly refuses and declines admission. I had a conversation with the patient and her friend at the bedside. Her friend supports my recommendation for admission. However the patient stop in the refuses admission. She initially sites her pets as reason not to be admitted. When her friend offers take care of her pets while she is in the hospital she then says that she cannot stay because she will be able to sleep. When I discussed with her that will be able to give her sleeping medications, she then says she just does not want to stay. At this point although she is an alcoholic and has alcohol on board, she is alert, conversant and I do think she has medical decision-making capacity. Although this is against my medical recommendation, she is insisting on discharge. She is invited to return to the ER if any condition worsens or if she changes her mind. I recommended that she follow up her primary care provider at the clinic in [place], as soon as possible. Lab Data Labs: Lab Results 05/17/25 05/17/25 Range/Units 16:57 17:13 WBC 6.24 (4.50-11.00) K/uL RBC 3.61 L (4.00-5.20) m/uL Hgb 13.1 (12.0-16.0) gm/dL Hct 39.0 (33.0-51.0) % MCV 108 H (80-100) fL MCH 36 H (26-34) pg MCHC 34 (32-36) gm/dL RDW Coeff of Yvon 12.3 (11.5-15.5) % Plt Count 183 (140-440) K/uL Neut % (Auto) 57.0 (42.0-72.0) % Lymph % (Auto) 30.8 (20-44) % Early % (Auto) 9.0 (0.0-11.0) % Eos % (Auto) 1.6 (0.0-7.0) % Baso % (Auto) 1.0 (0.0-3.0) % Neut # (Auto) 3.56 (1.7-7.0) K/uL Lymph # (Auto) 1.92 (0.90-2.90) K/uL Early # (Auto) 0.60 (0.00-0.90) K/UL Eos # (Auto) 0.10 (0.00-0.50) K/uL Baso # (Auto) 0.06 (0.00-0.30) K/uL Abs Immat Gran (auto) 0.04 (0.00-0.30) K/uL Imm/Tot Granulo (auto) 0.6 % INR 2.73 H (0.91-1.10) Sodium 130 L (135-149) mmol/L Potassium 4.3 (3.6-5.1) mmol/L Chloride 98 (96-114) mmol/L Carbon Dioxide 22 (20-32) mmol/L Anion Gap 10 (7-15) mEq/L BUN 14 (7-30) mg/dL Creatinine 1.5 (0.5-1.5) mg/dL Estimated Creat Clear 34.09 Estimated GFR 39 ml/min Glucose 100 (60-115) mg/dL Lactate 2.2 H (0.5-1.9) mmol/L Calcium 8.6 (8.4-10.6) mg/dL Magnesium 1.7 (1.5-2.6) mg/dL Troponin I < 0.01 (0.01-0.04) ng/mL NT-Pro-B Natriuret Pep 542 H (See Note) pg/mL Urine Color Yellow (Yellow) Urine Appearance Clear (Clear) Urine pH 5.5 (5.0-8.5) Ur Specific [place] <= 1.005 (1.000-1.030) Urine Protein Negative (Negative) Urine Glucose (UA) Negative (Negative) Urine Ketones Negative (Negative) Urine Blood Negative (Negative) Urine Nitrite Negative (Negative) Urine Bilirubin Negative (Negative) Urine Urobilinogen 0.2 (0.2-1.0) Ur Leukocyte Esterase 1+ A (Negative) Urine RBC 0-2 (0-2) Urine WBC 2-5 (0-5) Ur Squamous Epith Cells None (None-Few) Urine Bacteria Few A (None) Ethyl Alcohol 0.13 H (0.01-0.03) % Imaging Data CT scan - head: Attestation: I have reviewed the pertinent imaging results. Radiologist's impression: IMPRESSION: 1. No acute intracranial abnormality. CT C spine: Attestation: I have reviewed the pertinent imaging results. Radiologist's impression: IMPRESSION: 1. Straightening of the normal cervical lordosis. Trace degenerative retrolisthesis of C3 on C4. 2. Otherwise normal alignment. No acute fractures 3. Cervical spondylosis. 4. No prevertebral soft tissue swelling 5. Multilevel spinal canal and neural foraminal narrowing as described above. ECG Data Attestation: I personally reviewed and interpreted this ECG as follows: Interpretation: Normal sinus rhythm Rate 72 AL interval 156 Normal QRS axis. No pathologic Q-waves. T-wave inversions in leads V1-V5 are unchanged when compared to EKG from 12/22/2024. No acute ST segment elevation or depression. Nonspecific T-wave flattening in the inferior leads. QT 434 QTC 475. Prolonged QT. Discharge Plan Discharge Clinical Impression: Head injury, Alcohol intoxication, Alcohol abuse, Syncope and collapse Patient Disposition: Home, Self-Care Condition: Stable Instructions: Syncope (DC), Head Injury (DC), Alcohol Intoxication (DC), Abuse of Alcohol (DC) Additional Instructions: As we discussed, I recommend you stay in the hospital for further workup and testing. Your choosing to go home against my medical advice. Remember, you can come back to the ER right away if you change your mind or if you have any other new or concerning symptoms. In particular, return to the ER right away if you have more episodes of falling, worsening headache, confusion, uncontrolled vomiting, or uncontrolled shakiness. Even if you do not want to stay in hospital, you can come back to the ER any time. He please follow-up with your doctor to recheck within the next 2-3 days. Prescriptions: No Action cholecalciferol (vitamin D3) 50 mcg (2,000 unit) capsule 50 mcg PO QDAY magnesium citrate 100 mg capsule 100 mg PO QDAY sotalol 80 mg tablet 80 mg PO BID clonazepam 0.5 mg tablet 0.5 mg PO BID Qty: 180 1RF fluoxetine 10 mg capsule 10 mg PO QDAY Qty: 90 3RF Rx Instructions: 10 mg in addition to 20 mg, for 30 mg dose daily. fluoxetine 20 mg capsule 20 mg PO QDAY Qty: 90 3RF Rx Instructions: 10 mg in addition to 20 mg, for 30 mg dose daily. gabapentin 600 mg tablet 600 mg PO 3XD Qty: 270 1RF gabapentin 100 mg capsule 100 mg PO 3XD 90 Days Qty: 270 1RF Rx Instructions: in addition to 600 mg tid (700 mg tid) losartan 100 mg tablet 100 mg PO QDAY Qty: 90 3RF ondansetron 4 mg tablet,disintegrating 4 mg PO Q8H PRN (Reason: nausea/vomiting) Qty: 12 8RF quetiapine 25 mg tablet 25 mg PO BID 90 Days Qty: 180 3RF Rx Instructions: take 25 mg b.i.d. with 300 mg at bedtime quetiapine 300 mg tablet 300 mg PO QPM Qty: 90 3RF sumatriptan succinate 100 mg tablet See Rx Instructions PO .COMPLEX Qty: 10 6RF Rx Instructions: take 1 tab at onset of headache; if no relief, may repeat 1 tab after at least 2 hrs; max = 2 tabs/24 hrs PO warfarin 3 mg tablet 3 mg PO QDAY Qty: 90 1RF Protocol: Dose Management Condition: Saturday Dose/Route: 3 mg Instruction: 1 x 3 mg tablet Condition: Saturday Dose/Route: 3 mg Instruction: 1 x 3 mg tablet Condition: Saturday Dose/Route: 3 mg Instruction: 1 x 3 mg tablet Condition: Saturday Dose/Route: 3 mg Instruction: 1 x 3 mg tablet Condition: Dose/Route: 3 mg Instruction: 1 x 3 mg tablet Condition: Saturday Dose/Route: 3 mg Instruction: 1 x 3 mg tablet Condition: Saturday Dose/Route: 3 mg Instruction: 1 x 3 mg tablet Protocol Text: Adjustment Start Date: Saturday04/26/25 INR Value: 2.9 INR Date: 04/26/25 Recheck Date: 05/26/25 Rx Instructions: Coumadin 3 mg daily rosuvastatin [Crestor] 20 mg tablet 20 mg PO QDAY Qty: 90 3RF Rx Instructions: 10 mg daily x 2 weeks and then 20 mg daily thereafter Follow Up/Referrals: Swati Higginbotham, CABIN MAN, LARGE ANIMAL HUSBANDRY TECHNICIAN [Primary Care Provider, Family Practice] Stand Alone Forms: [employer] Info Instructions
[2025-05-17 17:24] LABS: Lactate* 2.2 mmol/L (0.5-1.9)
[2025-05-17 17:31] LABS: Hematocrit 39.0 % (33.0-51.0); Hemoglobin* 13.1 gm/dL (12.0-16.0); Immature Granulocytes Abs Auto 0.04 K/uL (0.00-0.30); Immature Granulocytes Pct Auto 0.6 %; Lymphocytes Absolute Auto 1.92 K/uL (0.90-2.90); Mean Corpuscular HGB Conc 34 gm/dL (32-36); Mean Corpuscular Hemoglobin 36 pg (26-34); Mean Corpuscular Volume 108 fL (80-100); RDW Coefficient of Variation % 12.3 % (11.5-15.5); Red Blood Count 3.61 m/uL (4.00-5.20); White Blood Count* 6.24 K/uL (4.50-11.00)
[2025-05-17 17:33] LABS: Slide Review Reflex No
[2025-05-17 17:48] LABS: Chloride* 98 mmol/L (96-114); Potassium* 4.3 mmol/L (3.6-5.1); Sodium* 130 mmol/L (135-149)
[2025-05-17 17:51] LABS: Anion Gap 10 mEq/L (7-15); Blood Urea Nitrogen* 14 mg/dL (7-30); Calcium* 8.6 mg/dL (8.4-10.6); Carbon Dioxide* 22 mmol/L (20-32); Creatinine* 1.5 mg/dL (0.5-1.5); Est. Creatinine Clearance* 34.09; Estimated Glomerular Filt Rate 39 ml/min; Ethanol* 0.13 % (0.01-0.03); Glucose* 100 mg/dL (60-115)
[2025-05-17 17:52] LABS: INR 2.73 (0.91-1.10); Prothrombin Time 30.1 Seconds
[2025-05-17 17:52] LABS: Appearance Urine Clear (Clear)
[2025-05-17 18:07] LABS: NT Pro B Type NatriureticPept* 542 pg/mL (See Note)
== END 2025-05-17 19:05 | disposition home or self-care (01) ==
PROVIDERS: Emergency Provider Emergency Medicine; PCP Nurse Practitioner Family
DX: S09.90XA Unspecified injury of head, initial encounter (principal); F10.120 Alcohol abuse with intoxication, uncomplicated; R55 Syncope and collapse
CPT/HCPCS: 36415; 70450; 72125; 80048; 81001; 82077; 83605; 83735; 83880; 84484; 85025; 85610; 87086; 93005; 96374; 99284; 99291; G0390; J3010

== ENCOUNTER 2025-05-24 15:17 | Outpatient (CLI) | payer OTHER, SELFPAY | END 2025-05-24 15:18 | disposition home or self-care (01) | PROVIDERS: PCP Nurse Practitioner Family; Visit Provider Nurse Practitioner Family | DX: R55 Syncope and collapse (principal) | CPT/HCPCS: 83735; 84484 ==

== ENCOUNTER 2025-07-13 09:39 | Outpatient (CLI) | payer MEDICARE, BC, SELFPAY ==
--- NOTE | 2025-07-13 10:15 | CRLHL7_ITS ---
For Patients: As a result of the Century Cures Act, medical imaging exams and procedure reports are released immediately into your electronic medical record. You may view this report before your referring provider. If you have questions, please contact your health care provider. CLINICAL HISTORY: Syncope and collapse TECHNIQUE: The carotid circulations and the vertebral arteries in the neck were examined with nick-scale ultrasound, color-flow and Doppler spectral analysis. Degrees of stenosis were determined using SRU 2002 Consensus Panel Criteria. FINDINGS: Sonographic images demonstrate bilateral atherosclerotic plaque formation without suspicious soft tissue mass. There was antegrade blood flow demonstrated within the vertebral arteries and the subclavian arteries demonstrated a normal triphasic waveform. The spectral Doppler tracings of the common carotid, internal and external carotid arteries demonstrate no abnormal turbulence or spectral broadening. There was no significant elevation of peak systolic blood flow which would indicate a hemodynamically-significant stenosis by SRU criteria. The ICA/CCA peak systolic velocity ratio measures 1.6 on the right and 1.1 on the left. IMPRESSION: Less than 50 percent stenosis of the internal carotid arteries bilaterally. Dictated by Jose Antonio Akhtar MD @ 07/13/2025 4:06:01 PM (Electronically Signed)
== END 2025-07-13 09:40 | disposition home or self-care (01) ==
PROVIDERS: PCP Nurse Practitioner Family; Visit Provider Nurse Practitioner Family
DX: R55 Syncope and collapse (principal); I65.23 Occlusion and stenosis of bilateral carotid arteries
CPT/HCPCS: 93880

== ENCOUNTER 2025-09-06 13:32 | Outpatient (CLI) | payer MEDICARE, BC, SELFPAY | END 2025-09-06 13:33 | disposition home or self-care (01) | PROVIDERS: PCP Nurse Practitioner Family; Visit Provider Nurse Practitioner Family | DX: Z87.898 Personal history of other specified conditions (principal) | CPT/HCPCS: 80053; 80061; 85025 ==